=== PATIENT | female | born 1965 | race American Indian/Alaskan Native ===

== ENCOUNTER 2020-09-26 13:15 | Emergency (ER) | payer SELFPAY ==
--- NOTE | 2020-09-26 13:30 | Event Note ---
ED Screening Note ED Screening Note: feeling spasms in the center of her back states she is also having chest pain described as a pressure like someone is sitting on her chest states she history of [facility], states she has stents two years ago +nausea no v/d no fever no cough no SOB PMHx DM no allergies to meds took an aspirin today 81mg This initial assessment/diagnostic orders/clinical plan/treatment(s) is/are subject to change based on patients health status, clinical progression and re- assessment by fellow clinical providers in the ED. Further treatment and workup at subsequent clinical providers discretion. Patient/guardian urged not to elope from the ED as their condition may be serious if not clinically assessed and managed. Initial orders include: cp protocol
[2020-09-26] MEDS ORDERED: ASPIRIN 81 MG TAB CHEW PO ONE (13:50)
[2020-09-26] MEDS ORDERED: MORPHINE 4 MG/1 ML INJ IV ONE (13:50)
--- NOTE | 2020-09-26 13:50 | Emergency Department Report ---
ED General Adult HPI - General Chief complaint: Chest Pain Stated complaint: CHEST PAINS Time Seen by Provider: 09/26/20 13:28 Source: patient Mode of arrival: Ambulatory Limitations: No Limitations - History of Present Illness Initial comments: Patient is a 55-year-old female past medical history of diabetes who presents with chest pain that is been going on for last hour. Patient states chest pain is a 6 out of 10 located in the middle of her chest is a sharp type of pain nothing makes the pain better or worse patient denies having any shortness of breath any fevers or chills nausea or vomiting patient was just resting when this chest pain occurred. - Related Data Home Medications Medication Instructions Recorded Confirmed Last Taken Lisinopril [Zestril] 10 mg PO DAILY 09/26/20 09/26/20 1 Day Ago ~09/25/20 Metoprolol [Lopressor] 25 mg PO DAILY 09/26/20 09/26/20 1 Day Ago ~09/25/20 glipiZIDE [Glucotrol] 10 mg PO QDAY 09/26/20 09/26/20 1 Day Ago ~09/25/20 metFORMIN [Glucophage] 500 mg PO QDAY 09/26/20 09/26/20 1 Day Ago ~09/25/20 Allergies Allergy/AdvReac Type Severity Reaction Status Date / Time No Known Allergies Allergy Unverified 09/26/20 13:20 ED Review of Systems ROS: Stated complaint: CHEST PAINS Other details as noted in HPI Constitutional: denies: chills, fever Eyes: denies: eye pain, eye discharge, vision change ENT: denies: ear pain, throat pain Respiratory: denies: cough, shortness of breath, wheezing Cardiovascular: chest pain. denies: palpitations Endocrine: no symptoms reported Gastrointestinal: denies: abdominal pain, nausea, diarrhea Genitourinary: denies: urgency, dysuria, discharge Musculoskeletal: denies: back pain, joint swelling, arthralgia Skin: denies: rash, lesions Neurological: denies: headache, weakness, paresthesias Psychiatric: denies: anxiety, depression Hematological/Lymphatic: denies: easy bleeding, easy bruising ED Past Medical Hx - Past Medical History Previous Medical History?: Yes Hx Hypertension: Yes Additional medical history: stent, - Surgical History Additional Surgical History: stent - Social History Smoking Status: Never Smoker - Medications Home Medications: Home Medications Medication Instructions Recorded Confirmed Last Taken Type Lisinopril [Zestril] 10 mg PO DAILY 09/26/20 09/26/20 1 Day Ago History ~09/25/20 Metoprolol [Lopressor] 25 mg PO DAILY 09/26/20 09/26/20 1 Day Ago History ~09/25/20 glipiZIDE [Glucotrol] 10 mg PO QDAY 09/26/20 09/26/20 1 Day Ago History ~09/25/20 metFORMIN [Glucophage] 500 mg PO QDAY 09/26/20 09/26/20 1 Day Ago History ~09/25/20 ED Physical Exam - General Limitations: No Limitations General appearance: alert, in no apparent distress - Head Head exam: Present: atraumatic, normocephalic - Eye Eye exam: Present: normal appearance - ENT ENT exam: Present: mucous membranes moist - Neck Neck exam: Present: normal inspection - Respiratory Respiratory exam: Present: normal lung sounds bilaterally. Absent: respiratory distress - Cardiovascular Cardiovascular Exam: Present: regular rate, normal rhythm. Absent: systolic murmur, diastolic murmur, rubs, gallop - GI/Abdominal GI/Abdominal exam: Present: soft, normal bowel sounds - Extremities Exam Extremities exam: Present: normal inspection - Back Exam Back exam: Present: normal inspection - Neurological Exam Neurological exam: Present: alert, oriented X3 - Psychiatric Psychiatric exam: Present: normal affect, normal mood - Skin Skin exam: Present: warm, dry, intact, normal color. Absent: rash ED Course Vital Signs 09/26/20 09/26/20 13:19 14:18 Temperature 97.8 F Pulse Rate 83 Respiratory 18 17 Rate Blood Pressure 160/101 O2 Sat by Pulse 97 Oximetry ED Medical Decision Making - Lab Data Result diagrams: 09/26/20 13:30 09/26/20 13:30 Lab Results 09/26/20 09/26/20 09/26/20 Range/Units 13:30 13:30 13:30 WBC 5.4 (4.5-11.0) K/mm3 RBC 4.95 (3.65-5.03) M/mm3 Hgb 11.8 (10.1-14.3) gm/dl Hct 37.6 (30.3-42.9) % MCV 76 L (79-97) fl MCH 24 L (28-32) pg MCHC 32 (30-34) % RDW 21.5 H (13.2-15.2) % Plt Count 273 (140-440) K/mm3 Lymph % (Auto) 42.4 H (13.4-35.0) % [place] % (Auto) 9.1 H (0.0-7.3) % Eos % (Auto) 2.6 (0.0-4.3) % Baso % (Auto) 1.8 (0.0-1.8) % Lymph # (Auto) 2.3 (1.2-5.4) K/mm3 [place] # (Auto) 0.5 (0.0-0.8) K/mm3 Eos # (Auto) 0.1 (0.0-0.4) K/mm3 Baso # (Auto) 0.1 (0.0-0.1) K/mm3 Seg Neutrophils % 44.1 (40.0-70.0) % Seg Neutrophils # 2.4 (1.8-7.7) K/mm3 PT 13.1 (12.2-14.9) Sec. INR 0.97 (0.87-1.13) APTT 26.0 (24.2-36.6) Sec. Sodium 132 L (137-145) mmol/L Potassium 4.8 (3.6-5.0) mmol/L Chloride 96.3 L (98-107) mmol/L Carbon Dioxide 25 (22-30) mmol/L Anion Gap 16 mmol/L BUN 12 (7-17) mg/dL Creatinine 0.9 (0.6-1.2) mg/dL Estimated GFR > 60 ml/min BUN/Creatinine Ratio 13 % Glucose 347 H (65-100) mg/dL Calcium 10.7 H (8.4-10.2) mg/dL Total Bilirubin 0.30 (0.1-1.2) mg/dL AST 77 H (5-40) units/L ALT 92 H (7-56) units/L Alkaline Phosphatase 105 (35-129) units/L Troponin T < 0.010 (0.00-0.029) ng/mL Total Protein 7.5 (6.3-8.2) g/dL Albumin 4.1 (3.9-5) g/dL Albumin/Globulin Ratio 1.2 % 09/26/20 Range/Units 16:13 WBC (4.5-11.0) K/mm3 RBC (3.65-5.03) M/mm3 Hgb (10.1-14.3) gm/dl Hct (30.3-42.9) % MCV (79-97) fl MCH (28-32) pg MCHC (30-34) % RDW (13.2-15.2) % Plt Count (140-440) K/mm3 Lymph % (Auto) (13.4-35.0) % [place] % (Auto) (0.0-7.3) % Eos % (Auto) (0.0-4.3) % Baso % (Auto) (0.0-1.8) % Lymph # (Auto) (1.2-5.4) K/mm3 [place] # (Auto) (0.0-0.8) K/mm3 Eos # (Auto) (0.0-0.4) K/mm3 Baso # (Auto) (0.0-0.1) K/mm3 Seg Neutrophils % (40.0-70.0) % Seg Neutrophils # (1.8-7.7) K/mm3 PT (12.2-14.9) Sec. INR (0.87-1.13) APTT (24.2-36.6) Sec. Sodium (137-145) mmol/L Potassium (3.6-5.0) mmol/L Chloride (98-107) mmol/L Carbon Dioxide (22-30) mmol/L Anion Gap mmol/L BUN (7-17) mg/dL Creatinine (0.6-1.2) mg/dL Estimated GFR ml/min BUN/Creatinine Ratio % Glucose (65-100) mg/dL Calcium (8.4-10.2) mg/dL Total Bilirubin (0.1-1.2) mg/dL AST (5-40) units/L ALT (7-56) units/L Alkaline Phosphatase (35-129) units/L Troponin T < 0.010 (0.00-0.029) ng/mL Total Protein (6.3-8.2) g/dL Albumin (3.9-5) g/dL Albumin/Globulin Ratio % - EKG Data -: EKG Interpreted by Me - EKG Data 09/26/20 17:10 EKG time 13: 24 rate 75 normal sinus rhythm no ST segment elevation no T wave inversion impression normal EKG - Radiology Data Radiology results: report reviewed, image reviewed Chest x-ray: Shows no acute cardiopulmonary disease - Medical Decision Making Chief medical diagnosis: Non-STEMI Differential medical diagnosis, stable angina, costochondritis I will get chest x-ray to assess her troponin blood work IV pain medicine EKG and I will reevaluate the patient 17: 11 ED work-up is unremarkable I will discharge patient with follow-up with stable attendant and primary care doctor. Discussed additional verbal discharge instructions with the patient Critical care attestation.: If time is entered above; I have spent that time in minutes in the direct care of this critically ill patient, excluding procedure time. ED Disposition Clinical Impression: Chest pain Qualifiers: Chest pain type: unspecified Qualified Code(s): R07.9 - Chest pain, unspecified Disposition: DC- TO HOME OR SELFCARE Is pt being admited?: No Does the pt Need Aspirin: No Condition: Stable Instructions: Chest Pain (ED) Referrals: PRIMARY MD FAUSTO [Primary Care Provider] - 3-5 Days JC DALLAS MD [Staff Physician] - 3-5 Days
--- NOTE | 2020-09-26 13:55 | XRay Report ---
CHEST 1 VIEW INDICATION: Chest Pain. COMPARISON: None FINDINGS: Support devices: None. Heart: Within normal limits. Lungs/Pleura: No acute air space or interstitial disease. Additional findings: None. IMPRESSION: No acute findings. Signer Name: Harman Mandujano Jr, MD Signed: 09/26/2020 1:51 PM Workstation Name: [id number]
[2020-09-26 14:45] LABS: Basophils # (Auto) 0.1 K/mm3 (0.0-0.1); Basophils % (Auto) 1.8 % (0.0-1.8); Eosinophils # (Auto) 0.1 K/mm3 (0.0-0.4); Eosinophils % (Auto) 2.6 % (0.0-4.3); Hematocrit 37.6 % (30.3-42.9); Hemoglobin 11.8 gm/dl (10.1-14.3); Lymphocytes # (Auto) 2.3 K/mm3 (1.2-5.4); Lymphocytes % (Auto) 42.4 % (13.4-35.0); Mean Corpuscular HGB Conc 32 % (30-34); Mean Corpuscular Volume 76 fl (79-97); Monocytes # (Auto) 0.5 K/mm3 (0.0-0.8); Monocytes % (Auto) 9.1 % (0.0-7.3); Platelet Count 273 K/mm3 (140-440); Red Blood Count 4.95 M/mm3 (3.65-5.03)
[2020-09-26 14:50] LABS: Red Cell Distribution Width 21.5 % (13.2-15.2)
[2020-09-26] MEDS ORDERED: SODIUM CHLORIDE 0.9% 1000 ML 1,000 ML IV ONE (14:50)
[2020-09-26 14:51] LABS: Alanine Aminotransferase 92 units/L (7-56); Albumin 4.1 g/dL (3.9-5); BUN/Creatinine Ratio 13; Blood Urea Nitrogen 12 mg/dL (7-17); Calcium 10.7 mg/dL (8.4-10.2); Hemolysis Index 2
[2020-09-26 14:54] LABS: INR 0.97 (0.87-1.13)
[2020-09-26 17:33] VITALS: BP 150/84
== END 2020-09-26 17:35 | disposition home or self-care (01) ==
LOC: ED 13:15
DX: R07.89 Other chest pain (principal); I10 Essential (primary) hypertension
CPT/HCPCS: 36415; 71045; 80053; 84484; 85025; 85610; 85730; 93005; 96361; 96374; 99284; J2270; J7030

== ENCOUNTER 2021-08-29 08:35 | Inpatient (IN) | payer SELFPAY ==
[2021-08-29 09:57] LABS: Basophils % (Auto) 0.6 % (0.0-1.8); Eosinophils # (Auto) 0.3 K/mm3 (0.0-0.4); Eosinophils % (Auto) 4.1 % (0.0-4.3); Hematocrit 35.7 % (30.3-42.9); Hemoglobin 11.5 gm/dl (10.1-14.3); Lymphocytes # (Auto) 2.7 K/mm3 (1.2-5.4); Mean Corpuscular HGB Conc 32 % (30-34); Mean Corpuscular Volume 83 fl (79-97); Monocytes # (Auto) 0.6 K/mm3 (0.0-0.8); Monocytes % (Auto) 8.3 % (0.0-7.3); Platelet Count 254 K/mm3 (140-440); Red Blood Count 4.33 M/mm3 (3.65-5.03); Red Cell Distribution Width 17.1 % (13.2-15.2)
--- NOTE | 2021-08-29 09:57 | Emergency Department Report ---
ED Abdominal Pain HPI - General Chief Complaint: Abdominal Pain Stated Complaint: ABDOMINAL/HEADACHE PUI?: No Time Seen by Provider: 08/29/21 09:40 Source: patient Mode of arrival: Ambulatory Limitations: No Limitations - History of Present Illness Initial Comments: 56 yo AA comes to ER co abd pain; periumbilical in nature. Denies diarrhea, constipation; pos nausea; no vomiting; no fever or chills; no weight loss Pt crying on admit to triage with the pain States its been off and on for weeks but increased over the last the few days that she can not stand the pain . MD Complaint: abdominal pain -: Gradual, days(s) Location: periumbilical Radiation: none Migration to: no migration Severity: severe Quality: cramping, fullness Consistency: constant Improves With: nothing Worsens With: nothing Associated Symptoms: denies other symptoms. denies: nausea, vomiting, diarrhea, fever, chills, constipation, dysuria, hematemesis, hematochezia, melena, hematuria, anorexia, syncope - Related Data Home Medications Medication Instructions Recorded Confirmed Last Taken Lisinopril [Zestril] 10 mg PO DAILY 09/26/20 09/26/20 1 Day Ago ~09/25/20 Metoprolol [Lopressor] 25 mg PO DAILY 09/26/20 09/26/20 1 Day Ago ~09/25/20 glipiZIDE [Glucotrol] 10 mg PO QDAY 09/26/20 09/26/20 1 Day Ago ~09/25/20 metFORMIN [Glucophage] 500 mg PO QDAY 09/26/20 09/26/20 1 Day Ago ~09/25/20 Allergies Allergy/AdvReac Type Severity Reaction Status Date / Time No Known Allergies Allergy Unverified 09/26/20 13:20 ED Review of Systems ROS: Stated complaint: ABDOMINAL/HEADACHE Other details as noted in HPI Comment: All other systems reviewed and negative ED Past Medical Hx - Past Medical History Previous Medical History?: Yes Hx Hypertension: Yes Hx CVA: No Hx Heart Attack/AMI: No Hx Congestive Heart Failure: No Hx Diabetes: Yes Hx Deep Vein Thrombosis: No Hx Pulmonary Embolism: No Hx GERD: No Hx Liver Disease: No Hx Renal Disease: No Hx of Cancer: No Hx Sickle Cell Disease: No Hx Arthritis: No Hx Headaches / Migraines: No Hx Seizures: No Hx Kidney Stones: No Hx Psychiatric Treatment: No Hx Asthma: No Hx COPD: No Hx Tuberculosis: No Hx Dementia: No Hx HIV: No Additional medical history: stent, hld - Surgical History Past Surgical History?: Yes Additional Surgical History: stent. Family hx ovarian cancer - Family History Family history: no significant - Social History Smoking Status: Never Smoker Substance Use Type: None - Medications Home Medications: Home Medications Medication Instructions Recorded Confirmed Last Taken Type Lisinopril [Zestril] 10 mg PO DAILY 09/26/20 09/26/20 1 Day Ago History ~09/25/20 Metoprolol [Lopressor] 25 mg PO DAILY 09/26/20 09/26/20 1 Day Ago History ~09/25/20 glipiZIDE [Glucotrol] 10 mg PO QDAY 09/26/20 09/26/20 1 Day Ago History ~09/25/20 metFORMIN [Glucophage] 500 mg PO QDAY 09/26/20 09/26/20 1 Day Ago History ~09/25/20 ED Physical Exam - General Limitations: No Limitations General appearance: alert, in no apparent distress - Head Head exam: Present: atraumatic, normocephalic - Eye Eye exam: Present: normal appearance - ENT ENT exam: Present: mucous membranes moist - Neck Neck exam: Present: normal inspection - Respiratory Respiratory exam: Present: normal lung sounds bilaterally. Absent: respiratory distress - Cardiovascular Cardiovascular Exam: Present: regular rate, normal rhythm. Absent: systolic murmur, diastolic murmur, rubs, gallop - GI/Abdominal GI/Abdominal exam: Present: soft, distended, tenderness, normal bowel sounds. Absent: guarding, rebound, rigid, diminished bowel sounds, hyperactive bowel sounds, hypoactive bowel sounds, organomegaly, mass, bruit, pulsatile mass, hernia - Extremities Exam Extremities exam: Present: normal inspection - Back Exam Back exam: Present: normal inspection - Neurological Exam Neurological exam: Present: alert, oriented X3 - Psychiatric Psychiatric exam: Present: normal affect, normal mood - Skin Skin exam: Present: warm, dry, intact, normal color. Absent: rash ED Course Vital Signs 08/29/21 08:45 Temperature 98.2 F Pulse Rate 88 Respiratory 18 Rate Blood Pressure 172/83 O2 Sat by Pulse 99 Oximetry - Reevaluation(s) Reevaluation #1: 08/29/21 15:04 pt informed of test findings guiac of stool pos for occult blood ED Medical Decision Making - Lab Data Result diagrams: 08/29/21 09:28 08/29/21 09:28 - Radiology Data Radiology results: report reviewed, image reviewed see report - Medical Decision Making Lab Results 08/29/21 08/29/21 08/29/21 Range/Units 09:28 09:28 09:49 WBC 7.2 (4.5-11.0) K/mm3 RBC 4.33 (3.65-5.03) M/mm3 Hgb 11.5 (10.1-14.3) gm/dl Hct 35.7 (30.3-42.9) % MCV 83 (79-97) fl MCH 27 L (28-32) pg MCHC 32 (30-34) % RDW 17.1 H (13.2-15.2) % Plt Count 254 (140-440) K/mm3 Lymph % (Auto) 37.0 H (13.4-35.0) % [place] % (Auto) 8.3 H (0.0-7.3) % Eos % (Auto) 4.1 (0.0-4.3) % Baso % (Auto) 0.6 (0.0-1.8) % Lymph # (Auto) 2.7 (1.2-5.4) K/mm3 [place] # (Auto) 0.6 (0.0-0.8) K/mm3 Eos # (Auto) 0.3 (0.0-0.4) K/mm3 Baso # (Auto) 0.0 (0.0-0.1) K/mm3 Seg Neutrophils % 50.0 (40.0-70.0) % Seg Neutrophils # 3.6 (1.8-7.7) K/mm3 VBG pH (7.320-7.420) Sodium 139 (137-145) mmol/L Potassium 4.1 (3.6-5.0) mmol/L Chloride 102.7 (98-107) mmol/L Carbon Dioxide 23 (22-30) mmol/L Anion Gap 17 mmol/L BUN 11 (7-17) mg/dL Creatinine 0.8 (0.6-1.2) mg/dL Estimated GFR > 60 ml/min BUN/Creatinine Ratio 14 % Glucose 329 H (65-100) mg/dL POC Glucose (70-105) mg/dL Ketones Quantitative (Negative) Calcium 10.4 H (8.4-10.2) mg/dL Total Bilirubin 0.20 (0.1-1.2) mg/dL Direct Bilirubin < 0.2 (0-0.2) mg/dL Indirect Bilirubin 0.0 mg/dL AST 33 (5-40) units/L ALT 26 (7-56) units/L Alkaline Phosphatase 105 (35-129) units/L Troponin T (0.00-0.029) ng/mL Total Protein 7.4 (6.3-8.2) g/dL Albumin 4.1 (3.9-5) g/dL Albumin/Globulin Ratio 1.2 % Lipase 50 (13-60) units/L Urine Color Yellow (Yellow) Urine Turbidity Clear (Clear) Urine pH 5.0 (5.0-7.0) Ur Specific [place] Range 1.017 (1.003-1.030) Urine Protein <15 mg/dl (Negative) mg/dL Urine Glucose (UA) >=500 (Negative) mg/dL Urine Ketones Neg (Negative) mg/dL Urine Blood Neg (Negative) Urine Nitrite Neg (Negative) Urine Bilirubin Neg (Negative) Urine Urobilinogen < 2.0 (<2.0) mg/dL Ur Leukocyte Esterase Neg (Negative) Urine WBC (Auto) 3.0 (0.0-6.0) /HPF Urine RBC (Auto) 1.0 (0.0-6.0) /HPF U Epithel Cells (Auto) 2.0 (0-13.0) /HPF Urine Bacteria (Auto) 1+ (Negative) /HPF Urine Mucus Few /HPF 08/29/21 08/29/21 08/29/21 Range/Units 10:59 11:10 11:10 WBC (4.5-11.0) K/mm3 RBC (3.65-5.03) M/mm3 Hgb (10.1-14.3) gm/dl Hct (30.3-42.9) % MCV (79-97) fl MCH (28-32) pg MCHC (30-34) % RDW (13.2-15.2) % Plt Count (140-440) K/mm3 Lymph % (Auto) (13.4-35.0) % [place] % (Auto) (0.0-7.3) % Eos % (Auto) (0.0-4.3) % Baso % (Auto) (0.0-1.8) % Lymph # (Auto) (1.2-5.4) K/mm3 [place] # (Auto) (0.0-0.8) K/mm3 Eos # (Auto) (0.0-0.4) K/mm3 Baso # (Auto) (0.0-0.1) K/mm3 Seg Neutrophils % (40.0-70.0) % Seg Neutrophils # (1.8-7.7) K/mm3 VBG pH 7.344 (7.320-7.420) Sodium (137-145) mmol/L Potassium (3.6-5.0) mmol/L Chloride (98-107) mmol/L Carbon Dioxide (22-30) mmol/L Anion Gap mmol/L BUN (7-17) mg/dL Creatinine (0.6-1.2) mg/dL Estimated GFR ml/min BUN/Creatinine Ratio % Glucose (65-100) mg/dL POC Glucose 319 H (70-105) mg/dL Ketones Quantitative Negative (Negative) Calcium (8.4-10.2) mg/dL Total Bilirubin (0.1-1.2) mg/dL Direct Bilirubin (0-0.2) mg/dL Indirect Bilirubin mg/dL AST (5-40) units/L ALT (7-56) units/L Alkaline Phosphatase (35-129) units/L Troponin T (0.00-0.029) ng/mL Total Protein (6.3-8.2) g/dL Albumin (3.9-5) g/dL Albumin/Globulin Ratio % Lipase (13-60) units/L Urine Color (Yellow) Urine Turbidity (Clear) Urine pH (5.0-7.0) Ur Specific [place] Range (1.003-1.030) Urine Protein (Negative) mg/dL Urine Glucose (UA) (Negative) mg/dL Urine Ketones (Negative) mg/dL Urine Blood (Negative) Urine Nitrite (Negative) Urine Bilirubin (Negative) Urine Urobilinogen (<2.0) mg/dL Ur Leukocyte Esterase (Negative) Urine WBC (Auto) (0.0-6.0) /HPF Urine RBC (Auto) (0.0-6.0) /HPF U Epithel Cells (Auto) (0-13.0) /HPF Urine Bacteria (Auto) (Negative) /HPF Urine Mucus /HPF 08/29/21 Range/Units 11:10 WBC (4.5-11.0) K/mm3 RBC (3.65-5.03) M/mm3 Hgb (10.1-14.3) gm/dl Hct (30.3-42.9) % MCV (79-97) fl MCH (28-32) pg MCHC (30-34) % RDW (13.2-15.2) % Plt Count (140-440) K/mm3 Lymph % (Auto) (13.4-35.0) % [place] % (Auto) (0.0-7.3) % Eos % (Auto) (0.0-4.3) % Baso % (Auto) (0.0-1.8) % Lymph # (Auto) (1.2-5.4) K/mm3 [place] # (Auto) (0.0-0.8) K/mm3 Eos # (Auto) (0.0-0.4) K/mm3 Baso # (Auto) (0.0-0.1) K/mm3 Seg Neutrophils % (40.0-70.0) % Seg Neutrophils # (1.8-7.7) K/mm3 VBG pH (7.320-7.420) Sodium (137-145) mmol/L Potassium (3.6-5.0) mmol/L Chloride (98-107) mmol/L Carbon Dioxide (22-30) mmol/L Anion Gap mmol/L BUN (7-17) mg/dL Creatinine (0.6-1.2) mg/dL Estimated GFR ml/min BUN/Creatinine Ratio % Glucose (65-100) mg/dL POC Glucose (70-105) mg/dL Ketones Quantitative (Negative) Calcium (8.4-10.2) mg/dL Total Bilirubin (0.1-1.2) mg/dL Direct Bilirubin (0-0.2) mg/dL Indirect Bilirubin mg/dL AST (5-40) units/L ALT (7-56) units/L Alkaline Phosphatase (35-129) units/L Troponin T < 0.010 (0.00-0.029) ng/mL Total Protein (6.3-8.2) g/dL Albumin (3.9-5) g/dL Albumin/Globulin Ratio % Lipase (13-60) units/L Urine Color (Yellow) Urine Turbidity (Clear) Urine pH (5.0-7.0) Ur Specific [place] Range (1.003-1.030) Urine Protein (Negative) mg/dL Urine Glucose (UA) (Negative) mg/dL Urine Ketones (Negative) mg/dL Urine Blood (Negative) Urine Nitrite (Negative) Urine Bilirubin (Negative) Urine Urobilinogen (<2.0) mg/dL Ur Leukocyte Esterase (Negative) Urine WBC (Auto) (0.0-6.0) /HPF Urine RBC (Auto) (0.0-6.0) /HPF U Epithel Cells (Auto) (0-13.0) /HPF Urine Bacteria (Auto) (Negative) /HPF Urine Mucus /HPF Vital Signs 08/29/21 08:45 Temperature 98.2 F Pulse Rate 88 Respiratory 18 Rate Blood Pressure 172/83 O2 Sat by Pulse 99 Oximetry labs noted ua noted CT noted Staffed with Dr Lopes continues to have abd pain despite dilaudid NS/insulin IV- BG Q1h ordered guaic pos for blood [address] MATOS; PT TO BE ADMITTED TO [facility] - Differential Diagnosis ro dka/uti/k stone/choleysyst./obstruction Critical care attestation.: If time is entered above; I have spent that time in minutes in the direct care of this critically ill patient, excluding procedure time. ED Disposition Clinical Impression: Abdominal pain Disposition: ADMITTED INPATIENT Is pt being admited?: Yes Does the pt Need Aspirin: No Condition: Stable Instructions: Abdominal Pain, Adult, [id number], Abdominal Pain (ED) Referrals: PRIMARY CARE, [Primary Care Provider] - 3-5 Days AVIVA SHAH MD [Staff Physician] - 3-5 Days DIOMEDES DUMONT MD [Staff Physician] - 3-5 Days Time of Disposition: 14:39
[2021-08-29 10:19] LABS: Alanine Aminotransferase 26 units/L (7-56); Albumin 4.1 g/dL (3.9-5); BUN/Creatinine Ratio 14; Blood Urea Nitrogen 11 mg/dL (7-17); Calcium 10.4 mg/dL (8.4-10.2); Hemolysis Index 4
[2021-08-29 10:20] LABS: Bilirubin,Direct < 0.2 mg/dL (0-0.2)
[2021-08-29 10:24] LABS: Bacteria,Urine 1+ /HPF (Negative); Bilirubin,Urine NEG (Negative); Blood,Urine NEG (Negative); Color,Urine Yellow (Yellow); Mucus,Urine FEW /HPF; Protein,Urine <15 mg/dL mg/dL (Negative); Urobilinogen,Urine < 2.0 mg/dL (<2.0)
[2021-08-29] MEDS ORDERED: INSULIN REGULAR, HUMAN 100 UNITS/1 ML IV ONE (10:38)
[2021-08-29] MEDS: SODIUM CHLORIDE 0.9% 1000 ML 1,000 ML IV ONE ×2 (10:57→11:10)
--- NOTE | 2021-08-29 11:05 | XRay Report ---
XR chest routine 2V INDICATION / CLINICAL INFORMATION: pain. COMPARISON: 09/26/2020 FINDINGS: SUPPORT DEVICES: None. HEART /PULMONARY VASCULATURE: No significant abnormality. LUNGS / PLEURA: No significant pulmonary or pleural abnormality. No pneumothorax. ADDITIONAL FINDINGS: No significant additional findings. IMPRESSION: 1. No acute findings. Signer Name: José Miguel Matos MD Signed: 08/29/2021 11:01 AM Workstation Name: [id number]
--- NOTE | 2021-08-29 11:49 | Electrocardiograph Report ---
[facility] Test Date: 2021-08-29 Test Time: 08:57:15 Pat Name: MARIA EUGENIA KING Department: Room: Gender: F [employer]: LANA : 1965 Requested By: RAHEEM FRANCIS Order Number: [id number] Reading MD: Nicola Moody Measurements Intervals [place] Rate: 87 P: 26 [place]: 163 QRS: 12 QRSD: 88 T: 37 QT: 356 QTc: 429 Interpretive Statements Sinus rhythm No previous ECG available for comparison Electronically Signed On 08-29-2021 11:49:21 EDT by Nicola Moody
[2021-08-29] MEDS ORDERED: SODIUM CHLORIDE 0.9% 1000 ML 1,000 ML IV ONE (12:07)
[2021-08-29] MEDS ORDERED: KETOROLAC 30 MG/1 ML INJ IV ONE (12:09)
--- NOTE | 2021-08-29 13:47 | Cat Scan Report ---
CT ABDOMEN AND PELVIS WITH CONTRAST INDICATION / CLINICAL INFORMATION: abd pain OMNI 300 100 ML. TECHNIQUE: Axial CT images were obtained through the abdomen and pelvis after IV contrast. All CT sc ans at this location are performed using CT dose reduction for ALARA by means of automated exposure c ontrol. COMPARISON: None available. FINDINGS: LOWER CHEST: No significant abnormality. AORTA / ARTERIES: Mild atherosclerotic calcification without acute abnormality. IVC / VEINS: No significant abnormality. LYMPH NODES: Several prominent right lower quadrant lymph nodes. COLON: There is pericolonic fat stranding along the ascending colon at the hepatic flexure. There is a short segment of colon which appears to have irregularly thickened bowel wall (series 2 images 92 t hrough 105, series 601 images 53 through 67 and series 602 images 40 through 54). Adjacent to this th ere are also several prominent lymph nodes. APPENDIX: Not visualized. STOMACH / SMALL BOWEL: No significant abnormality. PERITONEUM: No free fluid. No free air. No fluid collection. LIVER: No significant abnormality. GALLBLADDER: No significant abnormality. BILE DUCTS: No significant abnormality. PANCREAS: No significant abnormality. SPLEEN: No significant abnormality. ADRENALS: No significant abnormality. RIGHT KIDNEY / URETER: Multiple foci of cortical thinning suggesting chronic scarring. No hydronephro sis. LEFT KIDNEY / URETER: No significant abnormality. URINARY BLADDER: No significant abnormality. REPRODUCTIVE ORGANS: No significant abnormality. SKELETAL SYSTEM: No significant abnormality. ADDITIONAL FINDINGS: None. IMPRESSION: 1. Findings concerning for adenocarcinoma of the ascending colon. Colonoscopy should be considered wi thin clinically feasible. 2. Multiple foci of cortical thinning of the right kidney suggesting chronic scarring. Signer Name: Taran Solano DO Signed: 08/29/2021 1:43 PM Workstation Name: [id number]
[2021-08-29] MEDS ORDERED: HYDROmorphone 1 MG/1 ML INJ IV ONE ×2 (14:54→16:59)
--- NOTE | 2021-08-29 20:00 | History and Physical Report ---
History of Present Illness Date of examination: 08/29/21 Date of admission: 08/29/21 16:02 Chief complaint: Abdominal pain for 2 to 3 weeks History of present illness: 52-year-old male history of hypertension type 2 diabetes 2 to 3 weeks but more so today. Since a.m. Nausea present. But no vomiting or diarrhea. Abdominal pain is crampy in nature and pain is about 8 on a scale of 1-10. Food is an exacerbating factor. Pain is crampy and sharp in nature. Localized to periumbilical area. No constipation. No fever or chills. Vaccinated--Covid vaccine - Past Medical History Previous Medical History?: Yes Hypertension: Yes Additional medical history: stent, hld - Surgical History Past Surgical History?: Yes Additional Surgical History: stent. Family hx ovarian cancer - Family History Family history: no significant - Social History Smoking Status: Never Smoker Substance Use Type: None - Medications Home Medications: Home Medications Medication Instructions Recorded Confirmed Last Taken Type Lisinopril [Zestril] 10 mg PO DAILY 09/26/20 09/26/20 1 Day Ago History ~09/25/20 Metoprolol [Lopressor] 25 mg PO DAILY 09/26/20 09/26/20 1 Day Ago History ~09/25/20 glipiZIDE [Glucotrol] 10 mg PO QDAY 09/26/20 09/26/20 1 Day Ago History ~09/25/20 metFORMIN [Glucophage] 500 mg PO QDAY 09/26/20 09/26/20 1 Day Ago History ~09/25/20 Review of Systems ROS: Constitutional no weight loss or weight gain no fever or chills HEENT no sore throat no post nasal drip no diplopia Neck no neck stiffness no lymph gland enlargement Chest and lungs no shortness of breath cough or wheezing CVS no chest pain no diaphoresis no palpitations GI abdominal pain 2 to 3 weeks intermittent in nature. Genitourinary system no dysuria no flank pain Musculoskeletal system no muscle pains no joint pains [employer] no syncope no seizures Skin no rash no itching Psychiatric no depression no homicidal or suicidal tendencies Hematologic no lymphedema or bruising Endocrine no polydipsia no polyuria no cold intolerance no heat intolerance Medications and Allergies Allergies Allergy/AdvReac Type Severity Reaction Status Date / Time No Known Allergies Allergy Unverified 09/26/20 13:20 Home Medications Medication Instructions Recorded Confirmed Last Taken Type Lisinopril [Zestril] 10 mg PO DAILY 09/26/20 09/26/20 1 Day Ago History ~09/25/20 Metoprolol [Lopressor] 25 mg PO DAILY 09/26/20 09/26/20 1 Day Ago History ~09/25/20 glipiZIDE [Glucotrol] 10 mg PO QDAY 09/26/20 09/26/20 1 Day Ago History ~09/25/20 metFORMIN [Glucophage] 500 mg PO QDAY 09/26/20 09/26/20 1 Day Ago History ~09/25/20 Exam - Constitutional Vitals: Temp Pulse Resp BP Pulse Ox 98.2 F 88 18 172/83 99 08/29/21 08:45 08/29/21 08:45 08/29/21 08:45 08/29/21 08:45 08/29/21 08:45 General appearance: Present: no acute distress, mild distress, well-nourished - EENT Eyes: Present: PERRL ENT: hearing intact, clear oral mucosa - Neck Neck: Present: supple, normal ROM - Respiratory Respiratory effort: normal Respiratory: bilateral: CTA - Cardiovascular Heart rate: 78 Rhythm: regular Heart Sounds: Present: S1 & S2. Absent: rub, click - Extremities Extremities: no ischemia, pulses intact, pulses symmetrical, No edema Peripheral Pulses: within normal limits - Abdominal General gastrointestinal: Present: soft, tender, non-distended, normal bowel sounds Female genitourinary: Present: normal - Integumentary Integumentary: Present: clear, warm, dry - Musculoskeletal Musculoskeletal: gait normal, strength equal bilaterally - Psychiatric Psychiatric: appropriate mood/affect, intact judgment & insight - Neurologic Neurologic: CNII-XII intact, moves all extremities - Allied Health Allied health notes reviewed: nursing, case management HEART Score - HEART Score Troponin: Troponin T < 0.010 ng/mL (0.00-0.029) 08/29/21 11:10 Results - Labs CBC & Chem 7: 08/30/21 04:46 08/30/21 04:46 Labs: Laboratory Last Values WBC 7.2 K/mm3 (4.5-11.0) 08/29/21 09:28 RBC 4.33 M/mm3 (3.65-5.03) 08/29/21 09: Hgb 11.5 gm/dl (10.1-14.3) 08/29/21: Hct 35.7 % (30.3-42.9) 08/29/21: MCV 83 fl (79-97) 08/29/21: MCH 27 pg (28-32) L 08/29/21: MCHC 32 % (30-34) 08/29/21: RDW 17.1 % (13.2-15.2) H 08/29/21: Plt Count 254 K/mm3 (140-440) 08/29/21: Lymph % (Auto) 37.0 % (13.4-35.0) H 08/29/21: [place] % (Auto) 8.3 % (0.0-7.3) H 08/29/21: Eos % (Auto) 4.1 % (0.0-4.3) 08/29/21: Baso % (Auto) 0.6 % (0.0-1.8) 08/29/21: Lymph # (Auto) 2.7 K/mm3 (1.2-5.4) 08/29/21: [place] # (Auto) 0.6 K/mm3 (0.0-0.8) 08/29/21: Eos # (Auto) 0.3 K/mm3 (0.0-0.4) 08/29/21: Baso # (Auto) 0.0 K/mm3 (0.0-0.1) 08/29/21: Seg Neutrophils % 50.0 % (40.0-70.0) 08/29/21 09: Seg Neutrophils # 3.6 K/mm3 (1.8-7.7) 08/29/21 09: VBG pH 7.344 (7.320-7.420) 08/29/21 11:10 Sodium 139 mmol/L (137-145) 08/29/21 09: Potassium 4.1 mmol/L (3.6-5.0) 08/29/21 09: Chloride 102.7 mmol/L (98-107) 08/29/21 09:28 Carbon Dioxide 23 mmol/L (22-30) 08/29/21 09:28 Anion Gap 17 mmol/L 08/29/21 09:28 BUN 11 mg/dL (7-17) 08/29/21 09:28 Creatinine 0.8 mg/dL (0.6-1.2) 08/29/21 09:28 Estimated GFR > 60 ml/min 08/29/21 09: BUN/Creatinine Ratio 14 % 08/29/21 09:28 Glucose 329 mg/dL (65-100) H 08/29/21 09:28 POC Glucose 177 mg/dL (70-105) H 08/29/21 15:04 Ketones Quantitative Negative (Negative) 08/29/21 11:10 Calcium 10.4 mg/dL (8.4-10.2) H 08/29/21 09:28 Total Bilirubin 0.20 mg/dL (0.1-1.2) 08/29/21 09:28 Direct Bilirubin < 0.2 mg/dL (0-0.2) 08/29/21 09:28 Indirect Bilirubin 0.0 mg/dL 08/29/21 09:28 AST 33 units/L (5-40) 08/29/21 09:28 ALT 26 units/L (7-56) 08/29/21 09:28 Alkaline Phosphatase 105 units/L (35-129) 08/29/21 09:28 Troponin T < 0.010 ng/mL (0.00-0.029) 08/29/21 11:10 Total Protein 7.4 g/dL (6.3-8.2) 08/29/21 09:28 Albumin 4.1 g/dL (3.9-5) 08/29/21 09:28 Albumin/Globulin Ratio 1.2 % 08/29/21 09:28 Lipase 50 units/L (13-60) 08/29/21 09:28 Urine Color Yellow (Yellow) 08/29/21 09:49 Urine Turbidity Clear (Clear) 08/29/21 09:49 Urine pH 5.0 (5.0-7.0) 08/29/21 09:49 Ur Specific [place] 1.017 (1.003-1.030) 08/29/21 09:49 Urine Protein <15 mg/dl mg/dL (Negative) 08/29/21 09:49 Urine Glucose (UA) >=500 mg/dL (Negative) 08/29/21 09:49 Urine Ketones Neg mg/dL (Negative) 08/29/21 09:49 Urine Blood Neg (Negative) 08/29/21 09:49 Urine Nitrite Neg (Negative) 08/29/21 09:49 Urine Bilirubin Neg (Negative) 08/29/21 09:49 Urine Urobilinogen < 2.0 mg/dL (<2.0) 08/29/21 09:49 Ur Leukocyte Esterase Neg (Negative) 08/29/21 09:49 Urine WBC (Auto) 3.0 /HPF (0.0-6.0) 08/29/21 09:49 Urine RBC (Auto) 1.0 /HPF (0.0-6.0) 08/29/21 09:49 U Epithel Cells (Auto) 2.0 /HPF (0-13.0) 08/29/21 09:49 Urine Bacteria (Auto) 1+ /HPF (Negative) 08/29/21 09:49 Urine Mucus Few /HPF 08/29/21 09:49 Short CBC 08/29/21 08/30/21 Range/Units 09:28 04:46 WBC 7.2 7.3 (4.5-11.0) K/mm3 Hgb 11.5 11.1 (10.1-14.3) gm/dl Hct 35.7 34.6 (30.3-42.9) % Plt Count 254 254 (140-440) K/mm3 BMP 08/29/21 08/30/21 09:28 04:46 Sodium 139 138 Potassium 4.1 4.1 Chloride 102.7 104.3 Carbon Dioxide 23 21 L BUN 11 9 Creatinine 0.8 0.8 Glucose 329 H 218 H Calcium 10.4 H 10.1 Cardiac Enzymes 08/29/21 Range/Units 11:10 Troponin T < 0.010 (0.00-0.029) ng/mL Liver Function 08/29/21 08/30/21 Range/Units 09:28 04:46 Total Bilirubin 0.20 0.20 (0.1-1.2) mg/dL Direct Bilirubin < 0.2 (0-0.2) mg/dL AST 33 34 (5-40) units/L ALT 26 26 (7-56) units/L Alkaline Phosphatase 105 91 (35-129) units/L Albumin 4.1 3.9 (3.9-5) g/dL Urine 08/29/21 Range/Units 09:49 Urine Color Yellow (Yellow) Urine pH 5.0 (5.0-7.0) Ur Specific [place] 1.017 (1.003-1.030) Urine Protein <15 mg/dl (Negative) mg/dL Urine Glucose (UA) >=500 (Negative) mg/dL - Imaging and Cardiology CT scan - abdomen: report reviewed Imaging and Cardiology: Abdomen/pelvis CT Findings concerning for adenocarcinoma of ascending colon. Colonoscopy should be considered. When clinically feasible. Multiple foci of cortical thinning of the right kidney suggesting chronic scarring Chest x-ray No acute findings Assessment and Plan Advance Directives: Yes (Full code) VTE prophylaxis?: Chemical Plan of care discussed with patient/family: Yes - Patient Problems (1) Acute abdominal pain Current Visit: Yes Status: Acute Plan to address problem: Symptomatic treatment Pain secondary to partial obstruction of the ascending colon GI and surgical consult (2) Primary adenocarcinoma of ascending colon Current Visit: Yes Status: Acute Plan to address problem: Patient has a mass in the ascending colon--probably adenocarcinoma No metastasis Patient may be amenable to surgery with partial colectomy Wiill defer to GI and surgery (3) Hypertension Current Visit: Yes Status: Chronic Qualifiers: Hypertension type: primary hypertension Qualified Code(s): I10 - Essential (primary) hypertension Plan to address problem: Continue antihypertensives and adjust medication (4) Type 2 diabetes mellitus Current Visit: Yes Status: Chronic Qualifiers: Diabetes mellitus residential insulin use: unspecified residential insulin use status Plan to address problem: Continue coverage Accu-Cheks every 6 and moderate dose sliding scale coverage (5) DVT prophylaxis Current Visit: Yes Status: Acute Plan to address problem: On heparin and GI prophylaxis
[2021-08-29] MEDS ORDERED: ONDANSETRON 4 MG/2 ML INJ IV PRN (20:01)
[2021-08-29] MEDS ORDERED: MORPHINE 2 MG/1 ML INJ IV PRN (20:01)
[2021-08-29] MEDS ORDERED: METOCLOPRAMIDE 10 MG/2 ML INJ IV PRN (20:01)
[2021-08-29] MEDS ORDERED: cloNIDine TTS 0.2 MG/24 HR PATCH TD SCH (21:00)
[2021-08-29] MEDS: FAMOTIDINE 20 MG/2 ML INJ IV SCH (22:51)
[2021-08-29] MEDS: INSULIN LISPRO 100 UNIT/ML SUB-Q SCH (22:52)
[2021-08-29] MEDS: HYDROmorphone 1 MG/1 ML INJ IV PRN (23:01)
[2021-08-29] MEDS: SODIUM CHLORIDE 0.45% 1000 ML 1,000 ML IV SCH (23:12)
[2021-08-30] MEDS: INSULIN LISPRO 100 UNIT/ML SUB-Q SCH ×4 (02:00→18:43)
[2021-08-30] MEDS: HYDROmorphone 1 MG/1 ML INJ IV PRN ×5 (03:14→23:59)
[2021-08-30 05:42] LABS: Alanine Aminotransferase 26 units/L (7-56); Albumin 3.9 g/dL (3.9-5); BUN/Creatinine Ratio 11; Basophils # (Auto) 0.1 K/mm3 (0.0-0.1); Basophils % (Auto) 0.8 % (0.0-1.8); Blood Urea Nitrogen 9 mg/dL (7-17); Calcium 10.1 mg/dL (8.4-10.2); Eosinophils # (Auto) 0.3 K/mm3 (0.0-0.4); Eosinophils % (Auto) 4.5 % (0.0-4.3); Hematocrit 34.6 % (30.3-42.9); Hemoglobin 11.1 gm/dl (10.1-14.3); Hemolysis Index 18; Lymphocytes # (Auto) 3.1 K/mm3 (1.2-5.4); Lymphocytes % (Auto) 42.6 % (13.4-35.0); Mean Corpuscular HGB Conc 32 % (30-34); Mean Corpuscular Volume 81 fl (79-97); Monocytes # (Auto) 0.4 K/mm3 (0.0-0.8); Monocytes % (Auto) 5.9 % (0.0-7.3); Platelet Count 254 K/mm3 (140-440); Red Blood Count 4.26 M/mm3 (3.65-5.03); Red Cell Distribution Width 17.2 % (13.2-15.2)
--- NOTE | 2021-08-30 07:56 | Gastroenterology Consultation ---
History of Present Illness - Reason for Consult Consult date: 08/30/21 colon mass Requesting physician: TREVOR MATOS - History of Present Illness This is a pleasance 52-year-old female history of hypertension type 2 diabetes presenting with abd pain. Duration2 to 3 weeks no change in bm, no vomiting no diarrhea, quality cramping, moderate to severe, mid abd, no blood in stool no change in bm CT scan concerning for proximal colon malignancy - Past Medical History Previous Medical History?: Yes Hypertension: Yes Additional medical history: stent, hld - Surgical History Past Surgical History?: Yes Additional Surgical History: stent. Family hx ovarian cancer no known FH colon CA - Family History Family history: no significant - Social History Smoking Status: Never Smoker Substance Use Type: None Obtained/updated/reviewed patient's current medications Medications and Allergies Allergies Allergy/AdvReac Type Severity Reaction Status Date / Time No Known Allergies Allergy Unverified 09/26/20 13:20 Home Medications Medication Instructions Recorded Confirmed Last Taken Type Lisinopril [Zestril] 10 mg PO DAILY 09/26/20 08/30/21 1 Day Ago History ~09/25/20 Metoprolol [Lopressor] 25 mg PO DAILY 09/26/20 08/30/21 1 Day Ago History ~09/25/20 glipiZIDE [Glucotrol] 10 mg PO QDAY 09/26/20 08/30/21 1 Day Ago History ~09/25/20 metFORMIN [Glucophage] 500 mg PO QDAY 09/26/20 08/30/21 1 Day Ago History ~09/25/20 Active Meds: Active Medications Acetaminophen (Acetaminophen 325 Mg Tab) 650 mg PO Q4H PRN PRN Reason: Pain MILD(1-3)/Fever >100.5/GRADY Clonidine HCl (Clonidine Tts 0.2 Mg/24 Hr Patch) 0.2 mg TD We ESTEBAN Famotidine (Famotidine 20 Mg/2 Ml Inj) 20 mg IV BID ESTEBAN Last Admin: 08/29/21 22:51 Dose: 20 mg Documented by: Hydromorphone HCl (Hydromorphone 1 Mg/1 Ml Inj) 0.5 mg IV Q3H PRN PRN Reason: Pain , Severe (7-10) Last Admin: 08/30/21 03:14 Dose: 0.5 mg Documented by: Sodium Chloride (Nacl 0.45% 1000 Ml) 1,000 mls @ 75 mls/hr IV DIRECT ESTEBAN Last Admin: 08/29/21 23:12 Dose: 75 mls/hr Documented by: Insulin Human Lispro (Insulin Lispro 100 Unit/Ml) 0 unit SUB-Q Q6HR [facility]; Protocol Last Admin: 08/30/21 02:00 Dose: Not Given Documented by: Metoclopramide HCl (Metoclopramide 10 Mg/2 Ml Inj) 10 mg IV Q6H PRN PRN Reason: Nausea And Vomiting Morphine Sulfate (Morphine 2 Mg/1 Ml Inj) 2 mg IV Q4H PRN PRN Reason: Pain, Moderate (4-6) Ondansetron HCl (Ondansetron 4 Mg/2 Ml Inj) 4 mg IV Q8H PRN PRN Reason: Nausea And Vomiting Sodium Chloride (Sodium Chloride 0.9% 10 Ml Flush Syringe) 10 ml IV BID [facility] Last Admin: 08/29/21 22:56 Dose: 10 ml Documented by: Sodium Chloride (Sodium Chloride 0.9% 10 Ml Flush Syringe) 10 ml IV PRN PRN PRN Reason: LINE FLUSH Review of Systems - Review of Systems All systems: negative Exam - Constitutional Vital Signs: Temp Pulse Resp BP Pulse Ox 97.8 F 68 18 188/89 99 08/30/21 07:35 08/30/21 07:35 08/30/21 07:35 08/30/21 07:35 08/30/21 07:35 General appearance: no acute distress - EENT Eyes: EOM intact ENT: hearing intact - Neck Neck: supple - Respiratory Respiratory effort: normal - Cardiovascular Rhythm: regular - Gastrointestinal General gastrointestinal: Present: soft, normal bowel sounds - Integumentary Integumentary: Present: dry - Musculoskeletal Musculoskeletal: normal - Neurologic Neurological: alert and oriented x3 - Psychiatric Psychiatric: appropriate mood/affect - Labs CBC & Chem 7: 08/30/21 04:46 08/30/21 04:46 Lab Results: Laboratory Results - last 24 hr 08/29/21 08/29/21 08/29/21 09:28 09:28 09:49 WBC 7.2 RBC 4.33 Hgb 11.5 Hct 35.7 MCV 83 MCH 27 L MCHC 32 RDW 17.1 H Plt Count 254 Lymph % (Auto) 37.0 H [place] % (Auto) 8.3 H Eos % (Auto) 4.1 Baso % (Auto) 0.6 Lymph # (Auto) 2.7 [place] # (Auto) 0.6 Eos # (Auto) 0.3 Baso # (Auto) 0.0 Seg Neutrophils % 50.0 Seg Neutrophils # 3.6 VBG pH Sodium 139 Potassium 4.1 Chloride 102.7 Carbon Dioxide 23 Anion Gap 17 BUN 11 Creatinine 0.8 Estimated GFR > 60 BUN/Creatinine Ratio 14 Glucose 329 H POC Glucose Hemoglobin A1c Ketones Quantitative Calcium 10.4 H Total Bilirubin 0.20 Direct Bilirubin < 0.2 Indirect Bilirubin 0.0 AST 33 ALT 26 Alkaline Phosphatase 105 Troponin T Total Protein 7.4 Albumin 4.1 Albumin/Globulin Ratio 1.2 Lipase 50 Urine Color Yellow Urine Turbidity Clear Urine pH 5.0 Ur Specific [place] 1.017 Urine Protein <15 mg/dl Urine Glucose (UA) >=500 Urine Ketones Neg Urine Blood Neg Urine Nitrite Neg Urine Bilirubin Neg Urine Urobilinogen < 2.0 Ur Leukocyte Esterase Neg Urine WBC (Auto) 3.0 Urine RBC (Auto) 1.0 U Epithel Cells (Auto) 2.0 Urine Bacteria (Auto) 1+ Urine Mucus Few 08/29/21 08/29/21 08/29/21 10:59 11:10 11:10 WBC RBC Hgb Hct MCV MCH MCHC RDW Plt Count Lymph % (Auto) [place] % (Auto) Eos % (Auto) Baso % (Auto) Lymph # (Auto) [place] # (Auto) Eos # (Auto) Baso # (Auto) Seg Neutrophils % Seg Neutrophils # VBG pH 7.344 Sodium Potassium Chloride Carbon Dioxide Anion Gap BUN Creatinine Estimated GFR BUN/Creatinine Ratio Glucose POC Glucose 319 H Hemoglobin A1c Ketones Quantitative Negative Calcium Total Bilirubin Direct Bilirubin Indirect Bilirubin AST ALT Alkaline Phosphatase Troponin T Total Protein Albumin Albumin/Globulin Ratio Lipase Urine Color Urine Turbidity Urine pH Ur Specific [place] Urine Protein Urine Glucose (UA) Urine Ketones Urine Blood Urine Nitrite Urine Bilirubin Urine Urobilinogen Ur Leukocyte Esterase Urine WBC (Auto) Urine RBC (Auto) U Epithel Cells (Auto) Urine Bacteria (Auto) Urine Mucus 08/29/21 08/29/21 08/29/21 11:10 15:04 22:44 WBC RBC Hgb Hct MCV MCH MCHC RDW Plt Count Lymph % (Auto) [place] % (Auto) Eos % (Auto) Baso % (Auto) Lymph # (Auto) [place] # (Auto) Eos # (Auto) Baso # (Auto) Seg Neutrophils % Seg Neutrophils # VBG pH Sodium Potassium Chloride Carbon Dioxide Anion Gap BUN Creatinine Estimated GFR BUN/Creatinine Ratio Glucose POC Glucose 177 H 161 H Hemoglobin A1c Ketones Quantitative Calcium Total Bilirubin Direct Bilirubin Indirect Bilirubin AST ALT Alkaline Phosphatase Troponin T < 0.010 Total Protein Albumin Albumin/Globulin Ratio Lipase Urine Color Urine Turbidity Urine pH Ur Specific [place] Urine Protein Urine Glucose (UA) Urine Ketones Urine Blood Urine Nitrite Urine Bilirubin Urine Urobilinogen Ur Leukocyte Esterase Urine WBC (Auto) Urine RBC (Auto) U Epithel Cells (Auto) Urine Bacteria (Auto) Urine Mucus 08/30/21 08/30/21 08/30/21 04:46 04:46 04:46 WBC 7.3 RBC 4.26 Hgb 11.1 Hct 34.6 MCV 81 MCH 26 L MCHC 32 RDW 17.2 H Plt Count 254 Lymph % (Auto) 42.6 H [place] % (Auto) 5.9 Eos % (Auto) 4.5 H Baso % (Auto) 0.8 Lymph # (Auto) 3.1 [place] # (Auto) 0.4 Eos # (Auto) 0.3 Baso # (Auto) 0.1 Seg Neutrophils % 46.2 Seg Neutrophils # 3.4 VBG pH Sodium 138 Potassium 4.1 Chloride 104.3 Carbon Dioxide 21 L Anion Gap 17 BUN 9 Creatinine 0.8 Estimated GFR > 60 BUN/Creatinine Ratio 11 Glucose 218 H POC Glucose Hemoglobin A1c 11.9 H Ketones Quantitative Calcium 10.1 Total Bilirubin 0.20 Direct Bilirubin Indirect Bilirubin AST 34 ALT 26 Alkaline Phosphatase 91 Troponin T Total Protein 6.5 Albumin 3.9 Albumin/Globulin Ratio 1.5 Lipase Urine Color Urine Turbidity Urine pH Ur Specific [place] Urine Protein Urine Glucose (UA) Urine Ketones Urine Blood Urine Nitrite Urine Bilirubin Urine Urobilinogen Ur Leukocyte Esterase Urine WBC (Auto) Urine RBC (Auto) U Epithel Cells (Auto) Urine Bacteria (Auto) Urine Mucus 08/30/21 07:31 WBC RBC Hgb Hct MCV MCH MCHC RDW Plt Count Lymph % (Auto) [place] % (Auto) Eos % (Auto) Baso % (Auto) Lymph # (Auto) [place] # (Auto) Eos # (Auto) Baso # (Auto) Seg Neutrophils % Seg Neutrophils # VBG pH Sodium Potassium Chloride Carbon Dioxide Anion Gap BUN Creatinine Estimated GFR BUN/Creatinine Ratio Glucose POC Glucose 305 H Hemoglobin A1c Ketones Quantitative Calcium Total Bilirubin Direct Bilirubin Indirect Bilirubin AST ALT Alkaline Phosphatase Troponin T Total Protein Albumin Albumin/Globulin Ratio Lipase Urine Color Urine Turbidity Urine pH Ur Specific [place] Urine Protein Urine Glucose (UA) Urine Ketones Urine Blood Urine Nitrite Urine Bilirubin Urine Urobilinogen Ur Leukocyte Esterase Urine WBC (Auto) Urine RBC (Auto) U Epithel Cells (Auto) Urine Bacteria (Auto) Urine Mucus Assessment and Plan CT scan is highly concerning for malignancy; patient needs to be prepped for colonoscopy so clears today and golytely tonight and colonoscopy tomorrow - Patient Problems (1) Abnormal CT scan, colon Current Visit: Yes Status: Acute (2) Colonic mass Current Visit: Yes Status: Acute (3) Abdominal pain Current Visit: Yes Status: Acute
[2021-08-30] MEDS ORDERED: SODIUM CHLORIDE 0.9% 1000 ML 0 ML ONE (10:03)
[2021-08-30] MEDS: FAMOTIDINE 20 MG/2 ML INJ IV SCH ×2 (10:08→23:57)
--- NOTE | 2021-08-30 13:14 | Progress Note ---
Assessment and Plan Assessment and plan: A 52-year-old male history of hypertension and type 2 diabetes who presented with complaints of abdominal pain and nausea. No diarrhea, or constipation. (1) Acute abdominal pain Current Visit: Yes Status: Acute Plan to address problem: Symptomatic treatment Pain secondary to partial obstruction of the ascending colon GI and surgical consult (2) Primary adenocarcinoma of ascending colon Current Visit: Yes Status: Acute Plan to address problem: Patient has a mass in the ascending colon--probably adenocarcinoma No metastasis Patient may be amenable to surgery with partial colectomy Wiill defer to GI and surgery. Plan is for colonoscopy and patient will have bowel prep today (3) Hypertension Current Visit: Yes Status: Chronic Qualifiers: Hypertension type: primary hypertension Qualified Code(s): I10 - Essential (primary) hypertension Plan to address problem: Blood pressure is uncontrolled. Continue [id number]. Resume lisinopril and metoprolol. Start as needed IV hydralazine for cerebral pressure greater than 160. 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 Continue to hold oral hypoglycemic agents. Start Lantus 15 units subcu nightly. (5) DVT prophylaxis Current Visit: Yes Status: Acute Plan to address problem: On SCD and GI prophylaxis History Interval history: Still mid abdominal pain and nausea. Hospitalist Physical - Constitutional Vitals: Temp Pulse Resp BP Pulse Ox 98.3 F 82 18 175/107 97 08/30/21 10:22 08/30/21 10:22 08/30/21 10:22 08/30/21 10:22 08/30/21 10:22 General appearance: Present: no acute distress, mild distress, well-nourished - EENT Eyes: Present: PERRL, EOM intact ENT: hearing intact - Neck Neck: Present: supple, normal ROM - Respiratory Respiratory effort: normal Respiratory: bilateral: CTA - Cardiovascular Rhythm: regular Heart Sounds: Present: S1 & S2 - Extremities Extremities: No edema - Abdominal General gastrointestinal: soft, tender (Upper abdominal region.), normal bowel sounds Localized gastrointestinal: tender: epigastric periumbilical - Integumentary Integumentary: Present: clear, warm - Psychiatric Psychiatric: appropriate mood/affect HEART Score - HEART Score Troponin: Troponin T < 0.010 ng/mL (0.00-0.029) 08/29/21 11:10 Results - Labs CBC & Chem 7: 08/30/21 04:46 08/30/21 04:46 Labs: Laboratory Last Values WBC 7.3 K/mm3 (4.5-11.0) 08/30/21 04:46 RBC 4.26 M/mm3 (3.65-5.03) 08/30/21 04:46 Hgb 11.1 gm/dl (10.1-14.3) 08/30/21 04:46 Hct 34.6 % (30.3-42.9) 08/30/21 04:46 MCV 81 fl (79-97) 08/30/21 04:46 MCH 26 pg (28-32) L 08/30/21 04:46 MCHC 32 % (30-34) 08/30/21 04:46 RDW 17.2 % (13.2-15.2) H 08/30/21 04:46 Plt Count 254 K/mm3 (140-440) 08/30/21 04:46 Lymph % (Auto) 42.6 % (13.4-35.0) H 08/30/21 04:46 [place] % (Auto) 5.9 % (0.0-7.3) 08/30/21 04:46 Eos % (Auto) 4.5 % (0.0-4.3) H 08/30/21 04:46 Baso % (Auto) 0.8 % (0.0-1.8) 08/30/21 04:46 Lymph # (Auto) 3.1 K/mm3 (1.2-5.4) 08/30/21 04:46 [place] # (Auto) 0.4 K/mm3 (0.0-0.8) 08/30/21 04:46 Eos # (Auto) 0.3 K/mm3 (0.0-0.4) 08/30/21 04:46 Baso # (Auto) 0.1 K/mm3 (0.0-0.1) 08/30/21 04:46 Seg Neutrophils % 46.2 % (40.0-70.0) 08/30/21 04:46 Seg Neutrophils # 3.4 K/mm3 (1.8-7.7) 08/30/21 04:46 VBG pH 7.344 (7.320-7.420) 08/29/21 11:10 Sodium 138 mmol/L (137-145) 08/30/21 04:46 Potassium 4.1 mmol/L (3.6-5.0) 08/30/21 04:46 Chloride 104.3 mmol/L (98-107) 08/30/21 04:46 Carbon Dioxide 21 mmol/L (22-30) L 08/30/21 04:46 Anion Gap 17 mmol/L 08/30/21 04:46 BUN 9 mg/dL (7-17) 08/30/21 04:46 Creatinine 0.8 mg/dL (0.6-1.2) 08/30/21 04:46 Estimated GFR > 60 ml/min 08/30/21 04:46 BUN/Creatinine Ratio 11 % 08/30/21 04:46 Glucose 218 mg/dL (65-100) H 08/30/21 04:46 POC Glucose 305 mg/dL (70-105) H 08/30/21 07:31 Hemoglobin A1c 11.9 % (4-6) H 08/30/21 04:46 Ketones Quantitative Negative (Negative) 08/29/21 11:10 Calcium 10.1 mg/dL (8.4-10.2) 08/30/21 04:46 Total Bilirubin 0.20 mg/dL (0.1-1.2) 08/30/21 04:46 Direct Bilirubin < 0.2 mg/dL (0-0.2) 08/29/21 09:28 Indirect Bilirubin 0.0 mg/dL 08/29/21 09:28 AST 34 units/L (5-40) 08/30/21 04:46 ALT 26 units/L (7-56) 08/30/21 04:46 Alkaline Phosphatase 91 units/L (35-129) 08/30/21 04:46 Troponin T < 0.010 ng/mL (0.00-0.029) 08/29/21 11:10 Total Protein 6.5 g/dL (6.3-8.2) 08/30/21 04:46 Albumin 3.9 g/dL (3.9-5) 08/30/21 04:46 Albumin/Globulin Ratio 1.5 % 08/30/21 04:46 Lipase 50 units/L (13-60) 08/29/21 09:28 Urine Color Yellow (Yellow) 08/29/21 09:49 Urine Turbidity Clear (Clear) 08/29/21 09:49 Urine pH 5.0 (5.0-7.0) 08/29/21 09:49 Ur Specific [place] 1.017 (1.003-1.030) 08/29/21 09:49 Urine Protein <15 mg/dl mg/dL (Negative) 08/29/21 09:49 Urine Glucose (UA) >=500 mg/dL (Negative) 08/29/21 09:49 Urine Ketones Neg mg/dL (Negative) 08/29/21 09:49 Urine Blood Neg (Negative) 08/29/21 09:49 Urine Nitrite Neg (Negative) 08/29/21 09:49 Urine Bilirubin Neg (Negative) 08/29/21 09:49 Urine Urobilinogen < 2.0 mg/dL (<2.0) 08/29/21 09:49 Ur Leukocyte Esterase Neg (Negative) 08/29/21 09:49 Urine WBC (Auto) 3.0 /HPF (0.0-6.0) 08/29/21 09:49 Urine RBC (Auto) 1.0 /HPF (0.0-6.0) 08/29/21 09:49 U Epithel Cells (Auto) 2.0 /HPF (0-13.0) 08/29/21 09:49 Urine Bacteria (Auto) 1+ /HPF (Negative) 08/29/21 09:49 Urine Mucus Few /HPF 08/29/21 09:49 Active Medications - Current Medications Current Medications: Generic Name Dose Route Start Last Admin Trade Name Freq PRN Reason Stop Dose Admin Acetaminophen 650 mg 08/29/21 20:01 Acetaminophen 325 Mg Tab PO Q4H PRN Pain MILD(1-3)/Fever >100.5/GRADY Clonidine HCl 0.2 mg 09/05/21 22:00 Clonidine Tts 0.2 Mg/24 Hr Patch TD We ESTEBAN Famotidine 20 mg 08/29/21 22:00 08/30/21 10:08 Famotidine 20 Mg/2 Ml Inj IV 20 mg BID ESTEBAN Administration Hydromorphone HCl 0.5 mg 08/29/21 20:01 08/30/21 08:09 Hydromorphone 1 Mg/1 Ml Inj IV 0.5 mg Q3H PRN Administration Pain , Severe (7-10) Sodium Chloride 1,000 mls @ 75 mls/hr 08/29/21 21:00 08/29/21 23:12 Nacl 0.45% 1000 Ml IV 75 mls/hr DIRECT ESTEBAN Administration Insulin Human Lispro 0 unit 08/29/21 21:00 08/30/21 08:14 Insulin Lispro 100 Unit/Ml SUB-Q 6 unit Q6HR ESTEBAN Administration Protocol Metoclopramide HCl 10 mg 08/29/21 20:01 Metoclopramide 10 Mg/2 Ml Inj IV Q6H PRN Nausea And Vomiting Morphine Sulfate 2 mg 08/29/21 20:01 Morphine 2 Mg/1 Ml Inj IV Q4H PRN Pain, Moderate (4-6) Ondansetron HCl 4 mg 08/29/21 20:01 Ondansetron 4 Mg/2 Ml Inj IV Q8H PRN Nausea And Vomiting Polyethylene Glycol/Electrolytes 4,000 ml 08/30/21 18:00 Polyethylene Glycol/Elect Soln 4000 Ml PO 08/30/21 23:00 ONCE@1800 NR Sodium Chloride 10 ml 08/29/21 22:00 08/30/21 10:32 Sodium Chloride 0.9% 10 Ml Flush Syringe IV 10 ml BID ESTEBAN Administration Sodium Chloride 10 ml 08/29/21 20:01 Sodium Chloride 0.9% 10 Ml Flush Syringe IV PRN PRN LINE FLUSH
[2021-08-30] MEDS ORDERED: hydrALAZINE 20 MG/1 ML INJ IV PRN (14:00)
[2021-08-30] MEDS: LISINOPRIL 5 MG TAB PO SCH (14:00)
[2021-08-30] MEDS: METOPROLOL TARTRATE 25 MG TAB PO SCH (14:00)
--- NOTE | 2021-08-30 14:14 | Consultation ---
History of Present Illness Consult date: 08/30/21 Reason for consult: abdominal pain Chief complaint: abd pain - History of present illness History of present illness: 56 yo F with hx of DM who presented to ER with 1 month of worsening periumbilical and right sided abdominal pain, intermittent, crampy. NO alleviating factors. Eating food makes pain worse. +nausea recently but no vomiting. NO f/c. No melena, hematochezia. Bowel movements have been normal. Past History Past Medical History: CAD, diabetes, hypertension Past Surgical History: Other (cardiac stent) Social history: no significant social history Family history: cancer (ovarian - mother), diabetes, hypertension Medications and Allergies Allergies Allergy/AdvReac Type Severity Reaction Status Date / Time No Known Allergies Allergy Unverified 09/26/20 13:20 Home Medications Medication Instructions Recorded Confirmed Last Taken Type Lisinopril [Zestril] 10 mg PO DAILY 09/26/20 08/30/21 1 Day Ago History ~09/25/20 Metoprolol [Lopressor] 25 mg PO DAILY 09/26/20 08/30/21 1 Day Ago History ~09/25/20 glipiZIDE [Glucotrol] 10 mg PO QDAY 09/26/20 08/30/21 1 Day Ago History ~09/25/20 metFORMIN [Glucophage] 500 mg PO QDAY 09/26/20 08/30/21 1 Day Ago History ~09/25/20 Active Meds: Active Medications Acetaminophen (Acetaminophen 325 Mg Tab) 650 mg PO Q4H PRN PRN Reason: Pain MILD(1-3)/Fever >100.5/GRADY Clonidine HCl (Clonidine Tts 0.2 Mg/24 Hr Patch) 0.2 mg TD We ESTEBAN Famotidine (Famotidine 20 Mg/2 Ml Inj) 20 mg IV BID ESTEBAN Last Admin: 08/30/21 10:08 Dose: 20 mg Documented by: Hydralazine HCl (Hydralazine 20 Mg/1 Ml Inj) 5 mg IV Q6HR PRN PRN Reason: SBP > 160 Hydromorphone HCl (Hydromorphone 1 Mg/1 Ml Inj) 0.5 mg IV Q3H PRN PRN Reason: Pain , Severe (7-10) Last Admin: 08/30/21 08:09 Dose: 0.5 mg Documented by: Sodium Chloride (Nacl 0.45% 1000 Ml) 1,000 mls @ 75 mls/hr IV DIRECT ESTEBAN Last Admin: 08/29/21 23:12 Dose: 75 mls/hr Documented by: Insulin Glargine (Insulin Glargine 100 Units/Ml) 15 units SUB-Q QHS ESTEBAN Insulin Human Lispro (Insulin Lispro 100 Unit/Ml) 0 unit SUB-Q Q6HR ESTEBAN; Protoc ol Last Admin: 08/30/21 13:45 Dose: 3 unit Documented by: Lisinopril (Lisinopril 5 Mg Tab) 10 mg PO DAILY ESTEBAN Metoclopramide HCl (Metoclopramide 10 Mg/2 Ml Inj) 10 mg IV Q6H PRN PRN Reason: Nausea And Vomiting Metoprolol Tartrate (Metoprolol Tartrate 25 Mg Tab) 25 mg PO DAILY ESTEBAN Morphine Sulfate (Morphine 2 Mg/1 Ml Inj) 2 mg IV Q4H PRN PRN Reason: Pain, Moderate (4-6) Ondansetron HCl (Ondansetron 4 Mg/2 Ml Inj) 4 mg IV Q8H PRN PRN Reason: Nausea And Vomiting Polyethylene Glycol/Electrolytes (Polyethylene Glycol/Elect Soln 4000 Ml) 4,000 ml PO ONCE@1800 NR Stop: 08/30/21 23:00 Sodium Chloride (Sodium Chloride 0.9% 10 Ml Flush Syringe) 10 ml IV BID [facility] Last Admin: 08/30/21 10:32 Dose: 10 ml Documented by: Sodium Chloride (Sodium Chloride 0.9% 10 Ml Flush Syringe) 10 ml IV PRN PRN PRN Reason: LINE FLUSH Review of Systems All systems: negative (10 point ROS performed and negative except for that listed in HPI) Exam Vital Signs Temp Pulse Resp BP Pulse Ox 98.2 F 88 18 172/83 99 08/29/21 08:45 08/29/21 08:45 08/29/21 08:45 08/29/21 08:45 08/29/21 08:45 Narrative exam: Gen.: Awake, alert, oriented x3. No apparent distress ENT: Trachea midline. No lymphadenopathy. No scleral icterus or conjunctival pallor CV: S1, S2 present Respiratory: No audible wheezes Abdomen: Soft, nondistended, obese. Mild TTP supraumbilical midline and right abdomen. No rebound, rigidity, guarding Extremities: No clubbing, cyanosis, edema Results - Labs 08/30/21 04:46 08/30/21 04:46 Abnormal lab results 08/29/21 08/29/21 08/30/21 Range/Units 15:04 22:44 04:46 MCH 26 L (28-32) pg RDW 17.2 H (13.2-15.2) % Lymph % (Auto) 42.6 H (13.4-35.0) % Eos % (Auto) 4.5 H (0.0-4.3) % Carbon Dioxide (22-30) mmol/L Glucose (65-100) mg/dL POC Glucose 177 H 161 H (70-105) mg/dL Hemoglobin A1c (4-6) % 08/30/21 08/30/21 08/30/21 Range/Units 04:46 04:46 07:31 MCH (28-32) pg RDW (13.2-15.2) % Lymph % (Auto) (13.4-35.0) % Eos % (Auto) (0.0-4.3) % Carbon Dioxide 21 L (22-30) mmol/L Glucose 218 H (65-100) mg/dL POC Glucose 305 H (70-105) mg/dL Hemoglobin A1c 11.9 H (4-6) % 08/30/21 Range/Units 13:07 MCH (28-32) pg RDW (13.2-15.2) % Lymph % (Auto) (13.4-35.0) % Eos % (Auto) (0.0-4.3) % Carbon Dioxide (22-30) mmol/L Glucose (65-100) mg/dL POC Glucose 242 H (70-105) mg/dL Hemoglobin A1c (4-6) % Diabetes panel 08/30/21 08/30/21 Range/Units 04:46 04:46 Sodium 138 (137-145) mmol/L Potassium 4.1 (3.6-5.0) mmol/L Chloride 104.3 (98-107) mmol/L Carbon Dioxide 21 L (22-30) mmol/L BUN 9 (7-17) mg/dL Creatinine 0.8 (0.6-1.2) mg/dL Glucose 218 H (65-100) mg/dL Hemoglobin A1c 11.9 H (4-6) % Calcium 10.1 (8.4-10.2) mg/dL AST 34 (5-40) units/L ALT 26 (7-56) units/L Alkaline Phosphatase 91 (35-129) units/L Total Protein 6.5 (6.3-8.2) g/dL Albumin 3.9 (3.9-5) g/dL Calcium panel 08/30/21 Range/Units 04:46 Calcium 10.1 (8.4-10.2) mg/dL Albumin 3.9 (3.9-5) g/dL Pituitary panel 08/30/21 Range/Units 04:46 Sodium 138 (137-145) mmol/L Potassium 4.1 (3.6-5.0) mmol/L Chloride 104.3 (98-107) mmol/L Carbon Dioxide 21 L (22-30) mmol/L BUN 9 (7-17) mg/dL Creatinine 0.8 (0.6-1.2) mg/dL Glucose 218 H (65-100) mg/dL Calcium 10.1 (8.4-10.2) mg/dL Adrenal panel 08/30/21 Range/Units 04:46 Sodium 138 (137-145) mmol/L Potassium 4.1 (3.6-5.0) mmol/L Chloride 104.3 (98-107) mmol/L Carbon Dioxide 21 L (22-30) mmol/L BUN 9 (7-17) mg/dL Creatinine 0.8 (0.6-1.2) mg/dL Glucose 218 H (65-100) mg/dL Calcium 10.1 (8.4-10.2) mg/dL Total Bilirubin 0.20 (0.1-1.2) mg/dL AST 34 (5-40) units/L ALT 26 (7-56) units/L Alkaline Phosphatase 91 (35-129) units/L Total Protein 6.5 (6.3-8.2) g/dL Albumin 3.9 (3.9-5) g/dL - Imaging Chest x-ray: report reviewed, image reviewed CT scan - abdomen: report reviewed, image reviewed CT scan - pelvis: report reviewed, image reviewed Assessment and Plan 56 yo F with abdominal pain, ascending colon mass Plan: 1. CLD 2. GI notes reviewed - cscope planned for tomorrow 3. prn pain control 4. obtain CEA 5. surgical recs pending cscope results 6. will need cards consult for preop risk assessment Thank you, please call with questions.
[2021-08-30] MEDS ORDERED: POLYETHYLENE GLYCOL/ELECT SOLN 4000 ML PO NR (18:00)
[2021-08-30] MEDS: SODIUM CHLORIDE 0.45% 1000 ML 1,000 ML IV SCH (23:51)
[2021-08-30] MEDS: INSULIN GLARGINE 100 UNITS/ML SUB-Q SCH (23:58)
[2021-08-31] MEDS ORDERED: POLYETHYLENE GLYCOL/ELECT SOLN 4000 ML PO ONE (00:14)
[2021-08-31] MEDS: INSULIN LISPRO 100 UNIT/ML SUB-Q SCH ×5 (00:15→23:25)
--- NOTE | 2021-08-31 06:41 | Event Note ---
Date: 08/31/21 Spoke with patient's nurse, patient was given the prep and completed it around 5 AM. She is on schedule for colonoscopy in Endo suite sometime after 1 PM today
[2021-08-31] MEDS: METOPROLOL TARTRATE 25 MG TAB PO SCH ×2 (09:25→16:40)
[2021-08-31] MEDS: LISINOPRIL 5 MG TAB PO SCH ×2 (09:26→16:41)
[2021-08-31] MEDS: HYDROmorphone 1 MG/1 ML INJ IV PRN ×5 (09:28→23:27)
[2021-08-31] MEDS: FAMOTIDINE 20 MG/2 ML INJ IV SCH ×2 (09:28→23:25)
[2021-08-31] MEDS ORDERED: SODIUM CHLORIDE 0.9% 1000 ML 1,000 ML IV SCH (10:00)
[2021-08-31] MEDS: SODIUM CHLORIDE 0.45% 1000 ML 1,000 ML IV SCH (13:00)
--- NOTE | 2021-08-31 13:34 | Progress Note ---
Assessment and Plan Assessment and plan: A 52-year-old male history of hypertension and type 2 diabetes who presented with complaints of abdominal pain and nausea. No diarrhea, or constipation. (1) Acute abdominal pain Most likely related to colon mass, resolved Continue as needed analgesic. Continue antiemetic for nausea. GI and surgical input appreciated (2) Primary adenocarcinoma of ascending colon Patient has a mass in the ascending colon--probably adenocarcinoma Plan is for colonoscopy today by GI. CEA pending. (3) Hypertension Controlled. Continue current medication (4) Type 2 diabetes mellitus Continue coverage Accu-Cheks every 6 and moderate dose sliding scale coverage HbA1c 11.9. Continue to hold oral hypoglycemic agents. Continue Lantus 15 units subcu nightly. (5) DVT prophylaxis On SCD and GI prophylaxis History Interval history: He had nausea earlier which has resolved. No abdominal pain today. Hospitalist Physical - Constitutional Vitals: Temp Pulse Resp BP Pulse Ox 98.6 F 79 18 148/82 94 08/30/21 23:01 08/31/21 06:30 08/31/21 06:30 08/31/21 06:30 08/31/21 06:30 General appearance: Present: no acute distress, mild distress, well-nourished - EENT Eyes: Present: PERRL, EOM intact ENT: hearing intact - Neck Neck: Present: supple, normal ROM - Respiratory Respiratory effort: normal - Cardiovascular Rhythm: regular Heart Sounds: Present: S1 & S2 - Extremities Extremities: No edema - Abdominal General gastrointestinal: soft, non-tender, non-distended, normal bowel sounds - Integumentary Integumentary: Present: warm, dry - Psychiatric Psychiatric: appropriate mood/affect HEART Score - HEART Score Troponin: Troponin T < 0.010 ng/mL (0.00-0.029) 08/29/21 11:10 Results - Labs CBC & Chem 7: 08/30/21 04:46 08/30/21 04:46 Labs: Laboratory Last Values WBC 7.3 K/mm3 (4.5-11.0) 08/30/21 04:46 RBC 4.26 M/mm3 (3.65-5.03) 08/30/21 04:46 Hgb 11.1 gm/dl (10.1-14.3) 08/30/21 04:46 Hct 34.6 % (30.3-42.9) 08/30/21 04:46 MCV 81 fl (79-97) 08/30/21 04:46 MCH 26 pg (28-32) L 08/30/21 04:46 MCHC 32 % (30-34) 08/30/21 04:46 RDW 17.2 % (13.2-15.2) H 08/30/21 04:46 Plt Count 254 K/mm3 (140-440) 08/30/21 04:46 Lymph % (Auto) 42.6 % (13.4-35.0) H 08/30/21 04:46 [place] % (Auto) 5.9 % (0.0-7.3) 08/30/21 04:46 Eos % (Auto) 4.5 % (0.0-4.3) H 08/30/21 04:46 Baso % (Auto) 0.8 % (0.0-1.8) 08/30/21 04:46 Lymph # (Auto) 3.1 K/mm3 (1.2-5.4) 08/30/21 04:46 [place] # (Auto) 0.4 K/mm3 (0.0-0.8) 08/30/21 04:46 Eos # (Auto) 0.3 K/mm3 (0.0-0.4) 08/30/21 04:46 Baso # (Auto) 0.1 K/mm3 (0.0-0.1) 08/30/21 04:46 Seg Neutrophils % 46.2 % (40.0-70.0) 08/30/21 04:46 Seg Neutrophils # 3.4 K/mm3 (1.8-7.7) 08/30/21 04:46 VBG pH 7.344 (7.320-7.420) 08/29/21 11:10 Sodium 138 mmol/L (137-145) 08/30/21 04:46 Potassium 4.1 mmol/L (3.6-5.0) 08/30/21 04:46 Chloride 104.3 mmol/L (98-107) 08/30/21 04:46 Carbon Dioxide 21 mmol/L (22-30) L 08/30/21 04:46 Anion Gap 17 mmol/L 08/30/21 04:46 BUN 9 mg/dL (7-17) 08/30/21 04:46 Creatinine 0.8 mg/dL (0.6-1.2) 08/30/21 04:46 Estimated GFR > 60 ml/min 08/30/21 04:46 BUN/Creatinine Ratio 11 % 08/30/21 04:46 Glucose 218 mg/dL (65-100) H 08/30/21 04:46 POC Glucose 192 mg/dL (70-105) H 08/31/21 11:24 Hemoglobin A1c 11.9 % (4-6) H 08/30/21 04:46 Ketones Quantitative Negative (Negative) 08/29/21 11:10 Calcium 10.1 mg/dL (8.4-10.2) 08/30/21 04:46 Total Bilirubin 0.20 mg/dL (0.1-1.2) 08/30/21 04:46 Direct Bilirubin < 0.2 mg/dL (0-0.2) 08/29/21 09:28 Indirect Bilirubin 0.0 mg/dL 08/29/21 09:28 AST 34 units/L (5-40) 08/30/21 04:46 ALT 26 units/L (7-56) 08/30/21 04:46 Alkaline Phosphatase 91 units/L (35-129) 08/30/21 04:46 Troponin T < 0.010 ng/mL (0.00-0.029) 08/29/21 11:10 Total Protein 6.5 g/dL (6.3-8.2) 08/30/21 04:46 Albumin 3.9 g/dL (3.9-5) 08/30/21 04:46 Albumin/Globulin Ratio 1.5 % 08/30/21 04:46 Lipase 50 units/L (13-60) 08/29/21 09:28 Urine Color Yellow (Yellow) 08/29/21 09:49 Urine Turbidity Clear (Clear) 08/29/21 09:49 Urine pH 5.0 (5.0-7.0) 08/29/21 09:49 Ur Specific [place] 1.017 (1.003-1.030) 08/29/21 09:49 Urine Protein <15 mg/dl mg/dL (Negative) 08/29/21 09:49 Urine Glucose (UA) >=500 mg/dL (Negative) 08/29/21 09:49 Urine Ketones Neg mg/dL (Negative) 08/29/21 09:49 Urine Blood Neg (Negative) 08/29/21 09:49 Urine Nitrite Neg (Negative) 08/29/21 09:49 Urine Bilirubin Neg (Negative) 08/29/21 09:49 Urine Urobilinogen < 2.0 mg/dL (<2.0) 08/29/21 09:49 Ur Leukocyte Esterase Neg (Negative) 08/29/21 09:49 Urine WBC (Auto) 3.0 /HPF (0.0-6.0) 08/29/21 09:49 Urine RBC (Auto) 1.0 /HPF (0.0-6.0) 08/29/21 09:49 U Epithel Cells (Auto) 2.0 /HPF (0-13.0) 08/29/21 09:49 Urine Bacteria (Auto) 1+ /HPF (Negative) 08/29/21 09:49 Urine Mucus Few /HPF 08/29/21 09:49 [place]/IV: Voiding Method Toilet Active Medications - Current Medications Current Medications: Generic Name Dose Route Start Last Admin Trade Name Freq PRN Reason Stop Dose Admin Acetaminophen 650 mg 08/29/21 20:01 Acetaminophen 325 Mg Tab PO Q4H PRN Pain MILD(1-3)/Fever >100.5/GRADY Clonidine HCl 0.2 mg 09/05/21 22:00 Clonidine Tts 0.2 Mg/24 Hr Patch TD We ESTEBAN Famotidine 20 mg 08/29/21 22:00 08/31/21 09:28 Famotidine 20 Mg/2 Ml Inj IV 20 mg BID ESTEBAN Administration Hydralazine HCl 5 mg 08/30/21 14:00 Hydralazine 20 Mg/1 Ml Inj IV Q6HR PRN SBP > 160 Hydromorphone HCl 0.5 mg 08/29/21 20:01 08/31/21 09:28 Hydromorphone 1 Mg/1 Ml Inj IV 0.5 mg Q3H PRN Administration Pain , Severe (7-10) Sodium Chloride 1,000 mls @ 75 mls/hr 08/29/21 21:00 08/30/21 23:51 Nacl 0.45% 1000 Ml IV 75 mls/hr DIRECT ESTEBAN Administration Sodium Chloride 1,000 mls @ 50 mls/hr 08/31/21 10:00 Nacl 0.9% 1000 Ml IV 09/01/21 09:59 DIRECT [facility] Insulin Glargine 15 units 08/30/21 22:00 08/30/21 23:58 Insulin Glargine 100 Units/Ml SUB-Q 15 units QHS [facility] Administration Insulin Human Lispro 0 unit 08/29/21 21:00 08/31/21 06:56 Insulin Lispro 100 Unit/Ml SUB-Q Not Given Q6HR [facility] Protocol Lisinopril 10 mg 08/30/21 14:00 08/31/21 09:26 Lisinopril 5 Mg Tab PO Not Given DAILY [facility] Metoclopramide HCl 10 mg 08/29/21 20:01 Metoclopramide 10 Mg/2 Ml Inj IV Q6H PRN Nausea And Vomiting Metoprolol Tartrate 25 mg 08/30/21 14:00 08/31/21 09:25 Metoprolol Tartrate 25 Mg Tab PO Not Given DAILY [facility] Ondansetron HCl 4 mg 08/29/21 20:01 Ondansetron 4 Mg/2 Ml Inj IV Q8H PRN Nausea And Vomiting Sodium Chloride 10 ml 08/29/21 22:00 08/31/21 09:28 Sodium Chloride 0.9% 10 Ml Flush Syringe IV 10 ml BID [facility] Administration Sodium Chloride 10 ml 08/29/21 20:01 Sodium Chloride 0.9% 10 Ml Flush Syringe IV PRN PRN LINE FLUSH
[2021-08-31] MEDS ORDERED: propofoL 200 MG/20 ML VIAL IV ONE ×2 (14:39→15:02)
[2021-08-31] MEDS ORDERED: LIDOCAINE MPF (2%) 20 MG/1 ML VIAL 5 ML ONE (14:42)
--- NOTE | 2021-08-31 15:26 | Anesthesia Consultation ---
Anesthesia Consult and Med Hx Date of service: 08/31/21 - Airway Anesthetic Teeth Evaluation: Good ROM Head & Neck: Adequate Mental/Hyoid Distance: Adequate Mallampati Class: Class II Intubation Access Assessment: Good - Pulmonary Exam CTA: Yes - Cardiac Exam Cardiac Exam: No Murmur - Pre-Operative Health Status ASA Pre-Surgery Classification: ASA3 Proposed Anesthetic Plan: MAC - Pulmonary Hx Smoking: Yes (quit 2004) Hx Asthma: No COPD: No Hx Pneumonia: No - Cardiovascular System Hx Hypertension: Yes (meds this ) Hx Coronary Artery Disease: Yes (Stent 2017) Hx Heart Attack/AMI: Yes (2017; EKG:NSR 08-29-2021) Hx Angina: No - Central Nervous System Hx Seizures: No - Endocrine Hx Renal Disease: No Hx End Stage Renal Disease: No Hx Liver Disease: No Hx Non-Insulin Dependent Diabetes: Yes - Hematic Hx Sickle Cell Disease: No - Additional Comments Anesthesia Medical History Comments: no anesthesia complicactions with previous sx. appendectomy and Hernia repair
--- NOTE | 2021-08-31 15:27 | Anesthesia Day of Surgery ---
Anesthesia Day of Surgery - Day of Surgery Patient Examined: Yes Patient H&P Reviewed: Yes Patient is NPO: Yes
[2021-08-31] MEDS ORDERED: ONDANSETRON 4 MG/2 ML INJ IV PRN (15:33)
[2021-08-31] MEDS ORDERED: hydrALAZINE 20 MG/1 ML INJ IV ONE (15:34)
--- NOTE | 2021-08-31 16:29 | Operative Report ---
Operative Report Operative Report: DOS: 08/31/21 SURGEON: Glynn Oconnor MD COLONOSCOPY WITH BIOPSY AND TATTOO REPORT PREOPERATIVE AND POSTOPERATIVE DIAGNOSIS: Colon mass DESCRIPTION OF PROCEDURE: The colonoscope was passed to the cecum as identified by the ileocecal valve and appendiceal orifice. Scope was carefully withdrawn. Retroflexion was performed in the rectum. At the end of procedure, the scope was cleaned using normal technique. Vital signs monitored continuously throughout. SEDATION: Provided by [facility]. Quality of the prep was adequate. COMPLICATIONS: None. ESTIMATED BLOOD LOSS: Minimal FINDINGS: * Hemorrhoids were found on perennial exam * Nonbleeding external and internal hemorrhoids were found. The hemorrhoids were small * And ulcerated partially obstructing large mass was found in the ascending colon. The mass was circumferential. The mass measures 6 cm in length. Oozing was present. Biopsies were taken with cold forceps for histology. Area was tattooed with 4 mL of spot ink, 2 cc at the proximal margin and 2 cc at the distal margin * Remainder of exam was unremarkable RECOMMENDATIONS: * I recommend consultation to oncology * Follow-up biopsy results * I spoke with Dr. Castanon and informed her of the test results. Per her recommendation I started the patient on a clear liquid diet. Patient will require surgery though as the mass is quite large and circumferential * Repeat colonoscopy 1 year for surveillance * All first-degree relatives require colonoscopies every 5 years starting age 40 GI will sign off please call us back if we can be of any further assistance
--- NOTE | 2021-08-31 17:39 | Progress Note ---
Assessment and Plan 56 yo F with abdominal pain, ascending colon mass cscope 08/31/21 - Ulcerated, partially obstructing, large, circumfrential mass in the ascending colon measuring 6 cm. Plan: 1. continue CLD only -> do not advance 2. CEA pending 3. prn pain control 4. DVT ppx 5. Oncology consult 6. Recommend right hemicolectomy. I discussed the colonoscopy findings with the patient and the recommended surgical treatment. Explained to the patient the procedure in detail along with risks, benefits, alternatives to surgery. All questions answered and patient is agreeable to proceed with surgery. Possible OR on Friday afternoon if timing available Thank you for this consultation. Please call with any questions or concerns. Evaluation and treatment of this patient was during the time of the national and state emergency arising from COVID19 coronavirus pandemic. Treatment and procedures performed meet the current and available best practice and guidelines for patient during the COVID pandemic. Subjective Date of service: 08/31/21 Narrative: Patient seen and examined. No acute complaints. Status post colonoscopy today. Tolerating clear liquids. No nausea or vomiting. Afebrile Objective Vital Signs - 12hr 08/31/21 08/31/21 08/31/21 06:30 11:25 13:00 Temperature 97.9 F Pulse Rate 79 66 Respiratory 18 18 Rate Blood Pressure 148/82 148/83 O2 Sat by Pulse 94 96 97 Oximetry 08/31/21 08/31/21 08/31/21 15:15 15:20 15:25 Temperature 97.9 F Pulse Rate 87 90 90 Respiratory 18 16 16 Rate Blood Pressure 163/100 174/97 164/96 O2 Sat by Pulse 98 99 96 Oximetry 08/31/21 08/31/21 08/31/21 15:30 15:33 15:34 Temperature Pulse Rate 77 74 Respiratory 17 20 Rate Blood Pressure 174/100 174/100 O2 Sat by Pulse 97 Oximetry 08/31/21 08/31/21 08/31/21 15:43 15:45 16:00 Temperature Pulse Rate 74 73 Respiratory 13 15 14 Rate Blood Pressure 167/90 167/82 O2 Sat by Pulse 95 95 Oximetry 08/31/21 08/31/21 08/31/21 16:03 16:13 16:15 Temperature 97.8 F Pulse Rate 75 Respiratory 14 14 15 Rate Blood Pressure 162/70 O2 Sat by Pulse 96 Oximetry 08/31/21 16:30 Temperature 98.1 F Pulse Rate 81 Respiratory 20 Rate Blood Pressure 165/88 O2 Sat by Pulse 99 Oximetry - General physical appearance Narrative Exam: Gen.: Awake, alert, oriented x3. No apparent distress ENT: Trachea midline. No lymphadenopathy. No scleral icterus or conjunctival pallor CV: S1, S2 present Respiratory: No audible wheezes Abdomen: Soft, nondistended, nontender. No rebound, rigidity, guarding Extremities: No clubbing, cyanosis, edema - Labs 08/30/21 04:46 08/30/21 04:46
[2021-08-31] MEDS: INSULIN GLARGINE 100 UNITS/ML SUB-Q SCH (23:25)
--- NOTE | 2021-09-01 01:02 | Hem/Onc Consultation ---
History of Present Illness - Reason for Consult Consult date: 09/01/21 colon mass - History of Present Illness Heme/onc consult note televisit via tsqrd CPT: 67752 Dx: colon mass This is a 52yo female who presents to the ED with nausea and abdominal pain Pain has increased over the last few days Denies diarrhea, constipation, weight loss Pt with history of diabetes and HTN Covid vaccinated Colonoscopy 08/31/21 c/w ulcerated, partially obstructing, large, circumfrential mass in the ascending colon measuring 6 cm General surgery consulted--planning for possible OR on Friday afternoon if timing available DATA REVIEWED BELOW WBC 7.3 Hgb 11.1 Hct 34.6 MCV 81 Plts 254 IMP: New colon mass Relative high lymph percentage--not a problem Plan: AM labs to include iron panel, TIBC, CEA Agree with DVT ppx Hemicolectomy when stress test is complete Laboratory Last Values WBC 7.3 K/mm3 (4.5-11.0) 08/30/21 04:46 RBC 4.26 M/mm3 (3.65-5.03) 08/30/21 04:46 Hgb 11.1 gm/dl (10.1-14.3) 08/30/21 04:46 Hct 34.6 % (30.3-42.9) 08/30/21 04:46 MCV 81 fl (79-97) 08/30/21 04:46 MCH 26 pg (28-32) L 08/30/21 04:46 MCHC 32 % (30-34) 08/30/21 04:46 RDW 17.2 % (13.2-15.2) H 08/30/21 04:46 Plt Count 254 K/mm3 (140-440) 08/30/21 04:46 Lymph % (Auto) 42.6 % (13.4-35.0) H 08/30/21 04:46 [place] % (Auto) 5.9 % (0.0-7.3) 08/30/21 04:46 Eos % (Auto) 4.5 % (0.0-4.3) H 08/30/21 04:46 Baso % (Auto) 0.8 % (0.0-1.8) 08/30/21 04:46 Lymph # (Auto) 3.1 K/mm3 (1.2-5.4) 08/30/21 04:46 [place] # (Auto) 0.4 K/mm3 (0.0-0.8) 08/30/21 04:46 Eos # (Auto) 0.3 K/mm3 (0.0-0.4) 08/30/21 04:46 Baso # (Auto) 0.1 K/mm3 (0.0-0.1) 08/30/21 04:46 Seg Neutrophils % 46.2 % (40.0-70.0) 08/30/21 04:46 Seg Neutrophils # 3.4 K/mm3 (1.8-7.7) 08/30/21 04:46 VBG pH 7.344 (7.320-7.420) 08/29/21 11:10 Sodium 138 mmol/L (137-145) 08/30/21 04:46 Potassium 4.1 mmol/L (3.6-5.0) 08/30/21 04:46 Chloride 104.3 mmol/L (98-107) 08/30/21 04:46 Carbon Dioxide 21 mmol/L (22-30) L 08/30/21 04:46 Anion Gap 17 mmol/L 08/30/21 04:46 BUN 9 mg/dL (7-17) 08/30/21 04:46 Creatinine 0.8 mg/dL (0.6-1.2) 08/30/21 04:46 Estimated GFR > 60 ml/min 08/30/21 04:46 BUN/Creatinine Ratio 11 % 08/30/21 04:46 Glucose 218 mg/dL (65-100) H 08/30/21 04:46 POC Glucose 203 mg/dL (70-105) H 08/31/21 21:50 Hemoglobin A1c 11.9 % (4-6) H 08/30/21 04:46 Ketones Quantitative Negative (Negative) 08/29/21 11:10 Calcium 10.1 mg/dL (8.4-10.2) 08/30/21 04:46 Total Bilirubin 0.20 mg/dL (0.1-1.2) 08/30/21 04:46 Direct Bilirubin < 0.2 mg/dL (0-0.2) 08/29/21 09:28 Indirect Bilirubin 0.0 mg/dL 08/29/21 09:28 AST 34 units/L (5-40) 08/30/21 04:46 ALT 26 units/L (7-56) 08/30/21 04:46 Alkaline Phosphatase 91 units/L (35-129) 08/30/21 04:46 Troponin T < 0.010 ng/mL (0.00-0.029) 08/29/21 11:10 Total Protein 6.5 g/dL (6.3-8.2) 08/30/21 04:46 Albumin 3.9 g/dL (3.9-5) 08/30/21 04:46 Albumin/Globulin Ratio 1.5 % 08/30/21 04:46 Lipase 50 units/L (13-60) 08/29/21 09:28 Urine Color Yellow (Yellow) 08/29/21 09:49 Urine Turbidity Clear (Clear) 08/29/21 09:49 Urine pH 5.0 (5.0-7.0) 08/29/21 09:49 Ur Specific [place] 1.017 (1.003-1.030) 08/29/21 09:49 Urine Protein <15 mg/dl mg/dL (Negative) 08/29/21 09:49 Urine Glucose (UA) >=500 mg/dL (Negative) 08/29/21 09:49 Urine Ketones Neg mg/dL (Negative) 08/29/21 09:49 Urine Blood Neg (Negative) 08/29/21 09:49 Urine Nitrite Neg (Negative) 08/29/21 09:49 Urine Bilirubin Neg (Negative) 08/29/21 09:49 Urine Urobilinogen < 2.0 mg/dL (<2.0) 08/29/21 09:49 Ur Leukocyte Esterase Neg (Negative) 08/29/21 09:49 Urine WBC (Auto) 3.0 /HPF (0.0-6.0) 08/29/21 09:49 Urine RBC (Auto) 1.0 /HPF (0.0-6.0) 08/29/21 09:49 U Epithel Cells (Auto) 2.0 /HPF (0-13.0) 08/29/21 09:49 Urine Bacteria (Auto) 1+ /HPF (Negative) 08/29/21 09:49 Urine Mucus Few /HPF 08/29/21 09:49 Past History Past Medical History: CAD, diabetes, hypertension Past Surgical History: Other (cardiac stent) Social history: no significant social history Family history: cancer (ovarian - mother), diabetes, hypertension Medications and Allergies Allergies Allergy/AdvReac Type Severity Reaction Status Date / Time No Known Allergies Allergy Verified 08/31/21 00:24 Home Medications Medication Instructions Recorded Confirmed Last Taken Type Lisinopril [Zestril] 10 mg PO DAILY 09/26/20 08/31/21 08/29/21 08:00 History 10 mg Metoprolol [Lopressor] 25 mg PO DAILY 09/26/20 08/31/21 08/29/21 08:00 History 25 mg glipiZIDE [Glucotrol] 10 mg PO QDAY 09/26/20 08/31/21 08/29/21 08:00 History 10 mg metFORMIN [Glucophage] 1,000 mg PO QDAY 09/26/20 08/31/21 08/29/21 08:00 History 1000 mg Gabapentin 300 mg PO DAILY 08/31/21 08/31/21 08/27/21 21:00 History 300 Pantoprazole [Protonix TAB] 40 mg PO BID 08/31/21 08/31/21 08/29/21 08:00 History 40 mg Active Meds: Active Medications Acetaminophen (Acetaminophen 325 Mg Tab) 650 mg PO Q4H PRN PRN Reason: Pain MILD(1-3)/Fever >100.5/GRADY Clonidine HCl (Clonidine Tts 0.2 Mg/24 Hr Patch) 0.2 mg TD We [facility] Enoxaparin Sodium (Enoxaparin 40 Mg/0.4 Ml Inj) 40 mg SUB-Q DAILY [facility]; Protocol Famotidine (Famotidine 20 Mg/2 Ml Inj) 20 mg IV BID ESTEBAN Last Admin: 08/31/21 23:25 Dose: 20 mg Documented by: Hydralazine HCl (Hydralazine 20 Mg/1 Ml Inj) 5 mg IV Q6HR PRN PRN Reason: SBP > 160 Hydromorphone HCl (Hydromorphone 1 Mg/1 Ml Inj) 0.5 mg IV Q3H PRN PRN Reason: Pain , Severe (7-10) Last Admin: 08/31/21 23:27 Dose: 0.5 mg Documented by: Hydromorphone HCl (Hydromorphone 1 Mg/1 Ml Inj) 0.5 mg IV Q10MIN PRN PRN Reason: Pain , Severe (7-10) Stop: 09/01/21 15:32 Last Admin: 08/31/21 15:43 Dose: 0.5 mg Documented by: Sodium Chloride (Nacl 0.45% 1000 Ml) 1,000 mls @ 75 mls/hr IV DIRECT ESTEBAN Last Admin: 08/31/21 13:00 Dose: 75 mls/hr Documented by: Sodium Chloride (Nacl 0.9% 1000 Ml) 1,000 mls @ 50 mls/hr IV DIRECT ESTEBAN Stop: 09/01/21 09:59 Insulin Glargine (Insulin Glargine 100 Units/Ml) 15 units SUB-Q QHS [facility] Last Admin: 08/31/21 23:25 Dose: 15 units Documented by: Insulin Human Lispro (Insulin Lispro 100 Unit/Ml) 0 unit SUB-Q Q6HR [facility]; Pr otocol Last Admin: 08/31/21 23:25 Dose: 3 unit Documented by: Lisinopril (Lisinopril 5 Mg Tab) 10 mg PO DAILY [facility] Last Admin: 08/31/21 16:41 Dose: 10 mg Documented by: Metoclopramide HCl (Metoclopramide 10 Mg/2 Ml Inj) 10 mg IV Q6H PRN PRN Reason: Nausea And Vomiting Metoprolol Tartrate (Metoprolol Tartrate 25 Mg Tab) 25 mg PO DAILY [facility] Last Admin: 08/31/21 16:40 Dose: 25 mg Documented by: Ondansetron HCl (Ondansetron 4 Mg/2 Ml Inj) 4 mg IV Q8H PRN PRN Reason: Nausea And Vomiting Ondansetron HCl (Ondansetron 4 Mg/2 Ml Inj) 4 mg IV ONCE PRN PRN Reason: Nausea And Vomiting Sodium Chloride (Sodium Chloride 0.9% 10 Ml Flush Syringe) 10 ml IV BID [facility] Last Admin: 08/31/21 23:26 Dose: 10 ml Documented by: Sodium Chloride (Sodium Chloride 0.9% 10 Ml Flush Syringe) 10 ml IV PRN PRN PRN Reason: LINE FLUSH Exam - Constitutional Vitals: Last Vital Signs Temp 98.1 F 08/31/21 16:30 Pulse 81 08/31/21 16:30 Resp 20 08/31/21 16:30 BP 165/88 08/31/21 16:30 Pulse Ox 99 08/31/21 16:30 Results - Labs lab Results: Laboratory Results - last 24 hr 08/31/21 08/31/21 08/31/21 06:27 11:24 15:24 POC Glucose 204 H 192 H 188 H 08/31/21 21:50 POC Glucose 203 H
[2021-09-01] MEDS: SODIUM CHLORIDE 0.45% 1000 ML 1,000 ML IV SCH ×2 (02:39→21:38)
[2021-09-01] MEDS: INSULIN LISPRO 100 UNIT/ML SUB-Q SCH ×5 (06:48→22:31)
--- NOTE | 2021-09-01 09:56 | Progress Note ---
Assessment and Plan Assessment and plan: A 52-year-old male history of hypertension and type 2 diabetes who presented with complaints of abdominal pain and nausea. No diarrhea, or constipation. (1) Acute abdominal pain Most likely related to colon mass, resolved Continue as needed analgesic. Continue antiemetic for nausea. GI and surgical input appreciated (2) Primary adenocarcinoma of ascending colon Patient has a mass in the ascending colon--probably adenocarcinoma Plan is for colonoscopy today by GI. CEA pending. (3) Hypertension Controlled. Continue current medication (4) Type 2 diabetes mellitus Continue coverage Accu-Cheks every 6 and moderate dose sliding scale coverage HbA1c 11.9. Continue to hold oral hypoglycemic agents. Continue Lantus 15 units subcu nightly. (5) DVT prophylaxis On and GI prophylaxis 09/01/21 Patient with colonic mass. For surgery on Friday. History Interval history: Abdominal pain Hospitalist Physical - Physical exam Narrative exam: Gen: Not in acute distress, lying in bed,obese HEENT: Normocephalic, atraumatic Neck: supple, Lungs: Clear to auscultation bilaterally, no wheeze Heart: S1 and S2 reg, no murmurs, rubs or gallop Abd:soft, mild tender, non distended, normal bowel sounds Ext: No edema, no clubbing or cyanosis Neuro: Awake, alert, oriented X 3, moves all extremities - Constitutional Vitals: Temp Pulse Resp BP Pulse Ox 100.2 F H 98 H 18 148/89 95 09/01/21 04:28 09/01/21 04:28 09/01/21 04:28 09/01/21 04:28 09/01/21 04:28 General appearance: Present: no acute distress, mild distress, well-nourished HEART Score - HEART Score Troponin: Troponin T < 0.010 ng/mL (0.00-0.029) 08/29/21 11:10 Results - Labs CBC & Chem 7: 08/30/21 04:46 08/30/21 04:46 Labs: Laboratory Last Values WBC 7.3 K/mm3 (4.5-11.0) 08/30/21 04:46 RBC 4.26 M/mm3 (3.65-5.03) 08/30/21 04:46 Hgb 11.1 gm/dl (10.1-14.3) 08/30/21 04:46 Hct 34.6 % (30.3-42.9) 08/30/21 04:46 MCV 81 fl (79-97) 08/30/21 04:46 MCH 26 pg (28-32) L 08/30/21 04:46 MCHC 32 % (30-34) 08/30/21 04:46 RDW 17.2 % (13.2-15.2) H 08/30/21 04:46 Plt Count 254 K/mm3 (140-440) 08/30/21 04:46 Lymph % (Auto) 42.6 % (13.4-35.0) H 08/30/21 04:46 [place] % (Auto) 5.9 % (0.0-7.3) 08/30/21 04:46 Eos % (Auto) 4.5 % (0.0-4.3) H 08/30/21 04:46 Baso % (Auto) 0.8 % (0.0-1.8) 08/30/21 04:46 Lymph # (Auto) 3.1 K/mm3 (1.2-5.4) 08/30/21 04:46 [place] # (Auto) 0.4 K/mm3 (0.0-0.8) 08/30/21 04:46 Eos # (Auto) 0.3 K/mm3 (0.0-0.4) 08/30/21 04:46 Baso # (Auto) 0.1 K/mm3 (0.0-0.1) 08/30/21 04:46 Seg Neutrophils % 46.2 % (40.0-70.0) 08/30/21 04:46 Seg Neutrophils # 3.4 K/mm3 (1.8-7.7) 08/30/21 04:46 VBG pH 7.344 (7.320-7.420) 08/29/21 11:10 Sodium 138 mmol/L (137-145) 08/30/21 04:46 Potassium 4.1 mmol/L (3.6-5.0) 08/30/21 04:46 Chloride 104.3 mmol/L (98-107) 08/30/21 04:46 Carbon Dioxide 21 mmol/L (22-30) L 08/30/21 04:46 Anion Gap 17 mmol/L 08/30/21 04:46 BUN 9 mg/dL (7-17) 08/30/21 04:46 Creatinine 0.8 mg/dL (0.6-1.2) 08/30/21 04:46 Estimated GFR > 60 ml/min 08/30/21 04:46 BUN/Creatinine Ratio 11 % 08/30/21 04:46 Glucose 218 mg/dL (65-100) H 08/30/21 04:46 POC Glucose 171 mg/dL (70-105) H 09/01/21 07:33 Hemoglobin A1c 11.9 % (4-6) H 08/30/21 04:46 Ketones Quantitative Negative (Negative) 08/29/21 11:10 Calcium 10.1 mg/dL (8.4-10.2) 08/30/21 04:46 Total Bilirubin 0.20 mg/dL (0.1-1.2) 08/30/21 04:46 Direct Bilirubin < 0.2 mg/dL (0-0.2) 08/29/21 09:28 Indirect Bilirubin 0.0 mg/dL 08/29/21 09:28 AST 34 units/L (5-40) 08/30/21 04:46 ALT 26 units/L (7-56) 08/30/21 04:46 Alkaline Phosphatase 91 units/L (35-129) 08/30/21 04:46 Troponin T < 0.010 ng/mL (0.00-0.029) 08/29/21 11:10 Total Protein 6.5 g/dL (6.3-8.2) 08/30/21 04:46 Albumin 3.9 g/dL (3.9-5) 08/30/21 04:46 Albumin/Globulin Ratio 1.5 % 08/30/21 04:46 Lipase 50 units/L (13-60) 08/29/21 09:28 Urine Color Yellow (Yellow) 08/29/21 09:49 Urine Turbidity Clear (Clear) 08/29/21 09:49 Urine pH 5.0 (5.0-7.0) 08/29/21 09:49 Ur Specific [place] 1.017 (1.003-1.030) 08/29/21 09:49 Urine Protein <15 mg/dl mg/dL (Negative) 08/29/21 09:49 Urine Glucose (UA) >=500 mg/dL (Negative) 08/29/21 09:49 Urine Ketones Neg mg/dL (Negative) 08/29/21 09:49 Urine Blood Neg (Negative) 08/29/21 09:49 Urine Nitrite Neg (Negative) 08/29/21 09:49 Urine Bilirubin Neg (Negative) 08/29/21 09:49 Urine Urobilinogen < 2.0 mg/dL (<2.0) 08/29/21 09:49 Ur Leukocyte Esterase Neg (Negative) 08/29/21 09:49 Urine WBC (Auto) 3.0 /HPF (0.0-6.0) 08/29/21 09:49 Urine RBC (Auto) 1.0 /HPF (0.0-6.0) 08/29/21 09:49 U Epithel Cells (Auto) 2.0 /HPF (0-13.0) 08/29/21 09:49 Urine Bacteria (Auto) 1+ /HPF (Negative) 08/29/21 09:49 Urine Mucus Few /HPF 08/29/21 09:49 [place]/IV: Voiding Method Toilet Active Medications - Current Medications Current Medications: Generic Name Dose Route Start Last Admin Trade Name Freq PRN Reason Stop Dose Admin Acetaminophen 650 mg 08/29/21 20:01 Acetaminophen 325 Mg Tab PO Q4H PRN Pain MILD(1-3)/Fever >100.5/GRADY Clonidine HCl 0.2 mg 09/05/21 22:00 Clonidine Tts 0.2 Mg/24 Hr Patch TD We ESTEBAN Enoxaparin Sodium 40 mg 09/01/21 10:00 Enoxaparin 40 Mg/0.4 Ml Inj SUB-Q DAILY [facility] Protocol Famotidine 20 mg 08/29/21 22:00 08/31/21 23:25 Famotidine 20 Mg/2 Ml Inj IV 20 mg BID EST[facility] Administration Hydralazine HCl 5 mg 08/30/21 14:00 Hydralazine 20 Mg/1 Ml Inj IV Q6HR PRN SBP > 160 Hydromorphone HCl 0.5 mg 08/29/21 20:01 08/31/21 23:27 Hydromorphone 1 Mg/1 Ml Inj IV 0.5 mg Q3H PRN Administration Pain , Severe (7-10) Hydromorphone HCl 0.5 mg 08/31/21 15:33 08/31/21 15:43 Hydromorphone 1 Mg/1 Ml Inj IV 09/01/21 15:32 0.5 mg Q10MIN PRN Administration Pain , Severe (7-10) Sodium Chloride 1,000 mls @ 75 mls/hr 08/29/21 21:00 09/01/21 02:39 Nacl 0.45% 1000 Ml IV 75 mls/hr DIRECT EST[facility] Administration Sodium Chloride 1,000 mls @ 50 mls/hr 08/31/21 10:00 Nacl 0.9% 1000 Ml IV 09/01/21 09:59 DIRECT ESTEBAN Insulin Glargine 15 units 08/30/21 22:00 08/31/21 23:25 Insulin Glargine 100 Units/Ml SUB-Q 15 units QHS [facility] Administration Insulin Human Lispro 0 unit 09/01/21 08:30 Insulin Lispro 100 Unit/Ml SUB-Q ACHS [facility] Protocol Lisinopril 10 mg 08/30/21 14:00 08/31/21 16:41 Lisinopril 5 Mg Tab PO 10 mg DAILY [facility] Administration Metoclopramide HCl 10 mg 08/29/21 20:01 Metoclopramide 10 Mg/2 Ml Inj IV Q6H PRN Nausea And Vomiting Metoprolol Tartrate 25 mg 08/30/21 14:00 08/31/21 16:40 Metoprolol Tartrate 25 Mg Tab PO 25 mg DAILY [facility] Administration Ondansetron HCl 4 mg 08/29/21 20:01 Ondansetron 4 Mg/2 Ml Inj IV Q8H PRN Nausea And Vomiting Ondansetron HCl 4 mg 08/31/21 15:33 Ondansetron 4 Mg/2 Ml Inj IV ONCE PRN Nausea And Vomiting Sodium Chloride 10 ml 08/29/21 22:00 08/31/21 23:26 Sodium Chloride 0.9% 10 Ml Flush Syringe IV 10 ml BID ESTEB[facility] Administration Sodium Chloride 10 ml 08/29/21 20:01 Sodium Chloride 0.9% 10 Ml Flush Syringe IV PRN PRN LINE FLUSH
[2021-09-01] MEDS: ENOXAPARIN 40 MG/0.4 ML INJ SUB-Q SCH (10:29)
[2021-09-01] MEDS: METOPROLOL TARTRATE 25 MG TAB PO SCH (10:29)
[2021-09-01] MEDS: LISINOPRIL 5 MG TAB PO SCH (10:29)
[2021-09-01] MEDS: FAMOTIDINE 20 MG/2 ML INJ IV SCH ×2 (10:29→21:39)
[2021-09-01] MEDS: HYDROmorphone 1 MG/1 ML INJ IV PRN ×2 (10:33→21:46)
[2021-09-01] MEDS: INSULIN GLARGINE 100 UNITS/ML SUB-Q SCH (21:39)
[2021-09-02 06:22] LABS: Iron 27 ug/dL (37-170); Total Iron Binding Capacity 282 mcg/dL (250-450)
[2021-09-02] MEDS: HYDROmorphone 1 MG/1 ML INJ IV PRN (07:29)
[2021-09-02] MEDS: INSULIN LISPRO 100 UNIT/ML SUB-Q SCH ×4 (09:16→22:35)
[2021-09-02] MEDS: METOPROLOL TARTRATE 25 MG TAB PO SCH (09:21)
[2021-09-02] MEDS: LISINOPRIL 5 MG TAB PO SCH (09:21)
[2021-09-02] MEDS: FAMOTIDINE 20 MG/2 ML INJ IV SCH ×2 (09:21→22:30)
[2021-09-02] MEDS: ENOXAPARIN 40 MG/0.4 ML INJ SUB-Q SCH (09:21)
--- NOTE | 2021-09-02 09:53 | Progress Note ---
Assessment and Plan Assessment and plan: A 52-year-old male history of hypertension and type 2 diabetes who presented with complaints of abdominal pain and nausea. No diarrhea, or constipation. (1) Acute abdominal pain Most likely related to colon mass, resolved Continue as needed analgesic. Continue antiemetic for nausea. GI and surgical input appreciated (2) Primary adenocarcinoma of ascending colon Patient has a mass in the ascending colon--probably adenocarcinoma Plan is for colonoscopy today by GI. CEA pending. (3) Hypertension Controlled. Continue current medication (4) Type 2 diabetes mellitus Continue coverage Accu-Cheks every 6 and moderate dose sliding scale coverage HbA1c 11.9. Continue to hold oral hypoglycemic agents. Continue Lantus 15 units subcu nightly. (5) DVT prophylaxis On and GI prophylaxis 09/01/21 Patient with colonic mass. For surgery on Friday. 09/02/21 Patient with colonic mass in ascending colon. Possibile adenocarcinoma of colon. For surgery tomorrow. History Interval history: Abdominal pain Hospitalist Physical - Physical exam Narrative exam: Gen: Not in acute distress, lying in bed,obese HEENT: Normocephalic, atraumatic Neck: supple, Lungs: Clear to auscultation bilaterally, no wheeze Heart: S1 and S2 reg, no murmurs, rubs or gallop Abd:soft, mild tender, non distended, normal bowel sounds Ext: No edema, no clubbing or cyanosis Neuro: Awake, alert, oriented X 3, moves all extremities - Constitutional Vitals: Temp Pulse Resp BP Pulse Ox 98.6 F 69 20 153/87 96 09/01/21 17:00 09/01/21 17:00 09/01/21 17:00 09/01/21 17:00 09/01/21 22:00 General appearance: Present: no acute distress, obese HEART Score - HEART Score Troponin: Troponin T < 0.010 ng/mL (0.00-0.029) 08/29/21 11:10 Results - Labs CBC & Chem 7: 08/30/21 04:46 08/30/21 04:46 Labs: Laboratory Last Values WBC 7.3 K/mm3 (4.5-11.0) 08/30/21 04:46 RBC 4.26 M/mm3 (3.65-5.03) 08/30/21 04:46 Hgb 11.1 gm/dl (10.1-14.3) 08/30/21 04:46 Hct 34.6 % (30.3-42.9) 08/30/21 04:46 MCV 81 fl (79-97) 08/30/21 04:46 MCH 26 pg (28-32) L 08/30/21 04:46 MCHC 32 % (30-34) 08/30/21 04:46 RDW 17.2 % (13.2-15.2) H 08/30/21 04:46 Plt Count 254 K/mm3 (140-440) 08/30/21 04:46 Lymph % (Auto) 42.6 % (13.4-35.0) H 08/30/21 04:46 [place] % (Auto) 5.9 % (0.0-7.3) 08/30/21 04:46 Eos % (Auto) 4.5 % (0.0-4.3) H 08/30/21 04:46 Baso % (Auto) 0.8 % (0.0-1.8) 08/30/21 04:46 Lymph # (Auto) 3.1 K/mm3 (1.2-5.4) 08/30/21 04:46 [place] # (Auto) 0.4 K/mm3 (0.0-0.8) 08/30/21 04:46 Eos # (Auto) 0.3 K/mm3 (0.0-0.4) 08/30/21 04:46 Baso # (Auto) 0.1 K/mm3 (0.0-0.1) 08/30/21 04:46 Seg Neutrophils % 46.2 % (40.0-70.0) 08/30/21 04:46 Seg Neutrophils # 3.4 K/mm3 (1.8-7.7) 08/30/21 04:46 VBG pH 7.344 (7.320-7.420) 08/29/21 11:10 Sodium 138 mmol/L (137-145) 08/30/21 04:46 Potassium 4.1 mmol/L (3.6-5.0) 08/30/21 04:46 Chloride 104.3 mmol/L (98-107) 08/30/21 04:46 Carbon Dioxide 21 mmol/L (22-30) L 08/30/21 04:46 Anion Gap 17 mmol/L 08/30/21 04:46 BUN 9 mg/dL (7-17) 08/30/21 04:46 Creatinine 0.8 mg/dL (0.6-1.2) 08/30/21 04:46 Estimated GFR > 60 ml/min 08/30/21 04:46 BUN/Creatinine Ratio 11 % 08/30/21 04:46 Glucose 218 mg/dL (65-100) H 08/30/21 04:46 POC Glucose 137 mg/dL (70-105) H 09/02/21 07:57 Hemoglobin A1c 11.9 % (4-6) H 08/30/21 04:46 Ketones Quantitative Negative (Negative) 08/29/21 11:10 Calcium 10.1 mg/dL (8.4-10.2) 08/30/21 04:46 Iron 27 ug/dL (37-170) L 09/02/21 04:49 TIBC 282 mcg/dL (250-450) 09/02/21 04:49 Total Bilirubin 0.20 mg/dL (0.1-1.2) 08/30/21 04:46 Direct Bilirubin < 0.2 mg/dL (0-0.2) 08/29/21 09:28 Indirect Bilirubin 0.0 mg/dL 08/29/21 09:28 AST 34 units/L (5-40) 08/30/21 04:46 ALT 26 units/L (7-56) 08/30/21 04:46 Alkaline Phosphatase 91 units/L (35-129) 08/30/21 04:46 Troponin T < 0.010 ng/mL (0.00-0.029) 08/29/21 11:10 Total Protein 6.5 g/dL (6.3-8.2) 08/30/21 04:46 Albumin 3.9 g/dL (3.9-5) 08/30/21 04:46 Albumin/Globulin Ratio 1.5 % 08/30/21 04:46 Lipase 50 units/L (13-60) 08/29/21 09:28 Urine Color Yellow (Yellow) 08/29/21 09:49 Urine Turbidity Clear (Clear) 08/29/21 09:49 Urine pH 5.0 (5.0-7.0) 08/29/21 09:49 Ur Specific [place] 1.017 (1.003-1.030) 08/29/21 09:49 Urine Protein <15 mg/dl mg/dL (Negative) 08/29/21 09:49 Urine Glucose (UA) >=500 mg/dL (Negative) 08/29/21 09:49 Urine Ketones Neg mg/dL (Negative) 08/29/21 09:49 Urine Blood Neg (Negative) 08/29/21 09:49 Urine Nitrite Neg (Negative) 08/29/21 09:49 Urine Bilirubin Neg (Negative) 08/29/21 09:49 Urine Urobilinogen < 2.0 mg/dL (<2.0) 08/29/21 09:49 Ur Leukocyte Esterase Neg (Negative) 08/29/21 09:49 Urine WBC (Auto) 3.0 /HPF (0.0-6.0) 08/29/21 09:49 Urine RBC (Auto) 1.0 /HPF (0.0-6.0) 08/29/21 09:49 U Epithel Cells (Auto) 2.0 /HPF (0-13.0) 08/29/21 09:49 Urine Bacteria (Auto) 1+ /HPF (Negative) 08/29/21 09:49 Urine Mucus Few /HPF 08/29/21 09:49 Coronavirus (PCR) Negative (Negative) 09/01/21 09:09 Wray/IV: Voiding Method Toilet Active Medications - Current Medications Current Medications: Generic Name Dose Route Start Last Admin Trade Name Freq PRN Reason Stop Dose Admin Acetaminophen 650 mg 08/29/21 20:01 Acetaminophen 325 Mg Tab PO Q4H PRN Pain MILD(1-3)/Fever >100.5/GRADY Clonidine HCl 0.2 mg 09/05/21 22:00 Clonidine Tts 0.2 Mg/24 Hr Patch TD We ESTEBAN Enoxaparin Sodium 40 mg 09/01/21 10:00 09/02/21 09:21 Enoxaparin 40 Mg/0.4 Ml Inj SUB-Q 40 mg DAILY ESTEBAN Administration Protocol Famotidine 20 mg 08/29/21 22:00 09/02/21 09:21 Famotidine 20 Mg/2 Ml Inj IV 20 mg BID ESTEBAN Administration Hydralazine HCl 5 mg 08/30/21 14:00 Hydralazine 20 Mg/1 Ml Inj IV Q6HR PRN SBP > 160 Hydromorphone HCl 0.5 mg 08/29/21 20:01 09/02/21 07:29 Hydromorphone 1 Mg/1 Ml Inj IV 0.5 mg Q3H PRN Administration Pain , Severe (7-10) Sodium Chloride 1,000 mls @ 75 mls/hr 08/29/21 21:00 09/01/21 21:38 Nacl 0.45% 1000 Ml IV 75 mls/hr DIRECT ESTEBAN Administration Insulin Glargine 15 units 08/30/21 22:00 09/01/21 21:39 Insulin Glargine 100 Units/Ml SUB-Q 15 units QHS ESTEBAN Administration Insulin Human Lispro 0 unit 09/01/21 08:30 09/02/21 09:16 Insulin Lispro 100 Unit/Ml SUB-Q Not Given ACHS [facility] Protocol Lisinopril 10 mg 08/30/21 14:00 09/02/21 09:21 Lisinopril 5 Mg Tab PO 10 mg DAILY ESTEBAN Administration Metoclopramide HCl 10 mg 08/29/21 20:01 Metoclopramide 10 Mg/2 Ml Inj IV Q6H PRN Nausea And Vomiting Metoprolol Tartrate 25 mg 08/30/21 14:00 09/02/21 09:21 Metoprolol Tartrate 25 Mg Tab PO 25 mg DAILY ESTEBAN Administration Ondansetron HCl 4 mg 08/29/21 20:01 Ondansetron 4 Mg/2 Ml Inj IV Q8H PRN Nausea And Vomiting Ondansetron HCl 4 mg 08/31/21 15:33 Ondansetron 4 Mg/2 Ml Inj IV ONCE PRN Nausea And Vomiting Sodium Chloride 10 ml 08/29/21 22:00 09/01/21 21:39 Sodium Chloride 0.9% 10 Ml Flush Syringe IV 10 ml BID ESTEBAN Administration Sodium Chloride 10 ml 08/29/21 20:01 Sodium Chloride 0.9% 10 Ml Flush Syringe IV PRN PRN LINE FLUSH
[2021-09-02] MEDS: SODIUM CHLORIDE 0.45% 1000 ML 1,000 ML IV SCH (13:29)
[2021-09-02] MEDS: INSULIN GLARGINE 100 UNITS/ML SUB-Q SCH (22:29)
[2021-09-03] MEDS: HYDROmorphone 1 MG/1 ML INJ IV PRN ×3 (02:56→19:54)
[2021-09-03] MEDS: SODIUM CHLORIDE 0.45% 1000 ML 1,000 ML IV SCH ×2 (03:57→21:47)
--- NOTE | 2021-09-03 09:10 | Progress Note ---
Assessment and Plan Assessment and plan: A 52-year-old with hypertension and type 2 diabetes who presented with complaints of abdominal pain and nausea. No diarrhea, or constipation. (1) Acute abdominal pain Most likely related to colon mass, Continue as needed analgesic. Continue antiemetic for nausea. GI and surgical input appreciated (2) Primary adenocarcinoma of ascending colon Patient has a mass in the ascending colon--probably adenocarcinoma Plan is for colonoscopy today by GI. CEA pending. (3) Hypertension Controlled. Continue current medication (4) Type 2 diabetes mellitus Continue coverage Accu-Cheks every 6 and moderate dose sliding scale coverage HbA1c 11.9. Continue to hold oral hypoglycemic agents. Continue Lantus 15 units subcu nightly. (5) DVT prophylaxis On and GI prophylaxis 09/01/21 Patient with colonic mass. For surgery on Friday. 09/02/21 Patient with colonic mass in ascending colon. Possible adenocarcinoma of colon. For surgery tomorrow. 09/03/21 Patient presented with abdominal pain, found to have ascending colon mass on colonoscopy. For surgery today. Hypertension, uncontrolled. Give Hydralazine iv prn in addition to scheduled Metoprolol, Lisinopril Diabetes mellitus History Interval history: Patient presented with Abdominal pain found to have colon mass Hospitalist Physical - Physical exam Narrative exam: Gen: Not in acute distress, lying in bed,obese HEENT: Normocephalic, atraumatic Neck: supple, Lungs: Clear to auscultation bilaterally, no wheeze Heart: S1 and S2 reg, no murmurs, rubs or gallop Abd:soft, mild tender, non distended, normal bowel sounds Ext: No edema, no clubbing or cyanosis Neuro: Awake, alert, oriented X 3, moves all extremities - Constitutional Vitals: Temp Pulse Resp BP Pulse Ox 98.1 F 67 18 165/83 97 09/03/21 05:34 09/03/21 05:34 09/03/21 05:34 09/03/21 05:34 09/03/21 05:34 General appearance: Present: no acute distress, obese HEART Score - HEART Score Troponin: Troponin T < 0.010 ng/mL (0.00-0.029) 08/29/21 11:10 Results - Labs CBC & Chem 7: 09/03/21 09:31 09/03/21 09:31 Labs: Laboratory Last Values WBC 7.3 K/mm3 (4.5-11.0) 08/30/21 04:46 RBC 4.26 M/mm3 (3.65-5.03) 08/30/21 04:46 Hgb 11.1 gm/dl (10.1-14.3) 08/30/21 04:46 Hct 34.6 % (30.3-42.9) 08/30/21 04:46 MCV 81 fl (79-97) 08/30/21 04:46 MCH 26 pg (28-32) L 08/30/21 04:46 MCHC 32 % (30-34) 08/30/21 04:46 RDW 17.2 % (13.2-15.2) H 08/30/21 04:46 Plt Count 254 K/mm3 (140-440) 08/30/21 04:46 Lymph % (Auto) 42.6 % (13.4-35.0) H 08/30/21 04:46 Citrus % (Auto) 5.9 % (0.0-7.3) 08/30/21 04:46 Eos % (Auto) 4.5 % (0.0-4.3) H 08/30/21 04:46 Baso % (Auto) 0.8 % (0.0-1.8) 08/30/21 04:46 Lymph # (Auto) 3.1 K/mm3 (1.2-5.4) 08/30/21 04:46 Citrus # (Auto) 0.4 K/mm3 (0.0-0.8) 08/30/21 04:46 Eos # (Auto) 0.3 K/mm3 (0.0-0.4) 08/30/21 04:46 Baso # (Auto) 0.1 K/mm3 (0.0-0.1) 08/30/21 04:46 Seg Neutrophils % 46.2 % (40.0-70.0) 08/30/21 04:46 Seg Neutrophils # 3.4 K/mm3 (1.8-7.7) 08/30/21 04:46 VBG pH 7.344 (7.320-7.420) 08/29/21 11:10 Sodium 138 mmol/L (137-145) 08/30/21 04:46 Potassium 4.1 mmol/L (3.6-5.0) 08/30/21 04:46 Chloride 104.3 mmol/L (98-107) 08/30/21 04:46 Carbon Dioxide 21 mmol/L (22-30) L 08/30/21 04:46 Anion Gap 17 mmol/L 08/30/21 04:46 BUN 9 mg/dL (7-17) 08/30/21 04:46 Creatinine 0.8 mg/dL (0.6-1.2) 08/30/21 04:46 Estimated GFR > 60 ml/min 08/30/21 04:46 BUN/Creatinine Ratio 11 % 08/30/21 04:46 Glucose 218 mg/dL (65-100) H 08/30/21 04:46 POC Glucose 107 mg/dL (70-105) H 09/03/21 07:47 Hemoglobin A1c 11.9 % (4-6) H 08/30/21 04:46 Ketones Quantitative Negative (Negative) 08/29/21 11:10 Calcium 10.1 mg/dL (8.4-10.2) 08/30/21 04:46 Iron 27 ug/dL (37-170) L 09/02/21 04:49 TIBC 282 mcg/dL (250-450) 09/02/21 04:49 Total Bilirubin 0.20 mg/dL (0.1-1.2) 08/30/21 04:46 Direct Bilirubin < 0.2 mg/dL (0-0.2) 08/29/21 09:28 Indirect Bilirubin 0.0 mg/dL 08/29/21 09:28 AST 34 units/L (5-40) 08/30/21 04:46 ALT 26 units/L (7-56) 08/30/21 04:46 Alkaline Phosphatase 91 units/L (35-129) 08/30/21 04:46 Troponin T < 0.010 ng/mL (0.00-0.029) 08/29/21 11:10 Total Protein 6.5 g/dL (6.3-8.2) 08/30/21 04:46 Albumin 3.9 g/dL (3.9-5) 08/30/21 04:46 Albumin/Globulin Ratio 1.5 % 08/30/21 04:46 Lipase 50 units/L (13-60) 08/29/21 09:28 Urine Color Yellow (Yellow) 08/29/21 09:49 Urine Turbidity Clear (Clear) 08/29/21 09:49 Urine pH 5.0 (5.0-7.0) 08/29/21 09:49 Ur Specific Bude 1.017 (1.003-1.030) 08/29/21 09:49 Urine Protein <15 mg/dl mg/dL (Negative) 08/29/21 09:49 Urine Glucose (UA) >=500 mg/dL (Negative) 08/29/21 09:49 Urine Ketones Neg mg/dL (Negative) 08/29/21 09:49 Urine Blood Neg (Negative) 08/29/21 09:49 Urine Nitrite Neg (Negative) 08/29/21 09:49 Urine Bilirubin Neg (Negative) 08/29/21 09:49 Urine Urobilinogen < 2.0 mg/dL (<2.0) 08/29/21 09:49 Ur Leukocyte Esterase Neg (Negative) 08/29/21 09:49 Urine WBC (Auto) 3.0 /HPF (0.0-6.0) 08/29/21 09:49 Urine RBC (Auto) 1.0 /HPF (0.0-6.0) 08/29/21 09:49 U Epithel Cells (Auto) 2.0 /HPF (0-13.0) 08/29/21 09:49 Urine Bacteria (Auto) 1+ /HPF (Negative) 08/29/21 09:49 Urine Mucus Few /HPF 08/29/21 09:49 Coronavirus (PCR) Negative (Negative) 09/01/21 09:09 Wray/IV: Voiding Method Toilet Active Medications - Current Medications Current Medications: Generic Name Dose Route Start Last Admin Trade Name Freq PRN Reason Stop Dose Admin Acetaminophen 650 mg 08/29/21 20:01 Acetaminophen 325 Mg Tab PO Q4H PRN Pain MILD(1-3)/Fever >100.5/GRADY Clonidine HCl 0.2 mg 09/05/21 22:00 Clonidine Tts 0.2 Mg/24 Hr Patch TD We ESTEBAN Enoxaparin Sodium 40 mg 09/01/21 10:00 09/02/21 09:21 Enoxaparin 40 Mg/0.4 Ml Inj SUB-Q 40 mg DAILY ESTEBAN Administration Protocol Famotidine 20 mg 08/29/21 22:00 09/02/21 22:30 Famotidine 20 Mg/2 Ml Inj IV 20 mg BID ESTEBAN Administration Hydralazine HCl 5 mg 08/30/21 14:00 Hydralazine 20 Mg/1 Ml Inj IV Q6HR PRN SBP > 160 Hydromorphone HCl 0.5 mg 08/29/21 20:01 09/03/21 05:54 Hydromorphone 1 Mg/1 Ml Inj IV 0.5 mg Q3H PRN Administration Pain , Severe (7-10) Sodium Chloride 1,000 mls @ 75 mls/hr 08/29/21 21:00 09/03/21 03:57 Nacl 0.45% 1000 Ml IV 75 mls/hr DIRECT ESTEBAN Administration Insulin Glargine 15 units 08/30/21 22:00 09/02/21 22:29 Insulin Glargine 100 Units/Ml SUB-Q 15 units QHS ESTEBAN Administration Insulin Human Lispro 0 unit 09/01/21 08:30 09/02/21 22:35 Insulin Lispro 100 Unit/Ml SUB-Q Not Given ACHS [facility] Protocol Lisinopril 10 mg 08/30/21 14:00 09/02/21 09:21 Lisinopril 5 Mg Tab PO 10 mg DAILY ESTEBAN Administration Metoclopramide HCl 10 mg 08/29/21 20:01 Metoclopramide 10 Mg/2 Ml Inj IV Q6H PRN Nausea And Vomiting Metoprolol Tartrate 25 mg 08/30/21 14:00 09/02/21 09:21 Metoprolol Tartrate 25 Mg Tab PO 25 mg DAILY ESTEBAN Administration Ondansetron HCl 4 mg 08/29/21 20:01 Ondansetron 4 Mg/2 Ml Inj IV Q8H PRN Nausea And Vomiting Ondansetron HCl 4 mg 08/31/21 15:33 Ondansetron 4 Mg/2 Ml Inj IV ONCE PRN Nausea And Vomiting Sodium Chloride 10 ml 08/29/21 22:00 09/02/21 22:30 Sodium Chloride 0.9% 10 Ml Flush Syringe IV 10 ml BID ESTEBAN Administration Sodium Chloride 10 ml 08/29/21 20:01 Sodium Chloride 0.9% 10 Ml Flush Syringe IV PRN PRN LINE FLUSH
[2021-09-03] MEDS: INSULIN LISPRO 100 UNIT/ML SUB-Q SCH ×4 (09:44→21:46)
[2021-09-03] MEDS: METOPROLOL TARTRATE 25 MG TAB PO SCH ×3 (09:51→21:44)
[2021-09-03] MEDS: FAMOTIDINE 20 MG/2 ML INJ IV SCH ×2 (09:51→21:43)
[2021-09-03] MEDS: LISINOPRIL 5 MG TAB PO SCH (09:51)
[2021-09-03] MEDS: ENOXAPARIN 40 MG/0.4 ML INJ SUB-Q SCH (09:52)
[2021-09-03 09:53] LABS: Hematocrit 34.2 % (30.3-42.9); Hemoglobin 11.1 gm/dl (10.1-14.3); Mean Corpuscular HGB Conc 32 % (30-34); Mean Corpuscular Volume 82 fl (79-97); Platelet Count 247 K/mm3 (140-440); Red Blood Count 4.18 M/mm3 (3.65-5.03); Red Cell Distribution Width 17.3 % (13.2-15.2)
[2021-09-03 10:13] LABS: BUN/Creatinine Ratio 6; Blood Urea Nitrogen 5 mg/dL (7-17); Calcium 10.1 mg/dL (8.4-10.2); Hemolysis Index 5
--- NOTE | 2021-09-03 11:30 | Consultation ---
History of Present Illness Consult date: 09/03/21 Consult reason: pre op evaluation History of present illness: The patient is a 56-year-old woman admitted to the hospital with abdominal pain, nausea and vomiting. GI endoscopy has revealed an ascending colon mass suspicious for cancer. She has been recommended for a right hemicolectomy. In preparation for the surgery, a cardiac preoperative assessment was requested. The patient has an extensive cardiac history. In November 2017, when she lived in [place], she suffered a myocardial infarction, followed by placement of a 3.0 x 30 mm drug-eluting stent in the LAD. She relocated to the [facility] about a year ago, but admits to no cardiac follow-up during her time here in [place]. She has had no significant cardiac re-evaluation since her stent procedure in 2017, and has been poorly compliant with standard guideline directed medical therapy. Nevertheless, no cardiac symptoms, she has had no chest pain, no shortness of breath, no palpitations, no lower extremity edema. Comorbidities include diabetes and hypertension. She reports no regular exercise regimen. EKG on this presentation is a sinus rhythm, left ventricular hypertrophy by voltage criteria, otherwise normal ECG. Chest x-ray reveals a normal-sized cardiac silhouette and clear lungs. Past History Past Medical History: CAD, diabetes, hypertension Past Surgical History: PTCA Social history: no significant social history Family history: cancer (ovarian - mother), diabetes, hypertension Medications and Allergies Allergies Allergy/AdvReac Type Severity Reaction Status Date / Time No Known Allergies Allergy Verified 08/31/21 00:24 Home Medications Medication Instructions Recorded Confirmed Last Taken Type Lisinopril [Zestril] 10 mg PO DAILY 09/26/20 08/31/21 08/29/21 08:00 History 10 mg Metoprolol [Lopressor] 25 mg PO DAILY 09/26/20 08/31/21 08/29/21 08:00 History 25 mg glipiZIDE [Glucotrol] 10 mg PO QDAY 09/26/20 08/31/21 08/29/21 08:00 History 10 mg metFORMIN [Glucophage] 1,000 mg PO QDAY 09/26/20 08/31/21 08/29/21 08:00 History 1000 mg Gabapentin 300 mg PO DAILY 08/31/21 08/31/21 08/27/21 21:00 History 300 Pantoprazole [Protonix TAB] 40 mg PO BID 08/31/21 08/31/21 08/29/21 08:00 History 40 mg Active Meds: Active Medications Acetaminophen (Acetaminophen 325 Mg Tab) 650 mg PO Q4H PRN PRN Reason: Pain MILD(1-3)/Fever >100.5/GRADY Clonidine HCl (Clonidine Tts 0.2 Mg/24 Hr Patch) 0.2 mg TD We [facility] Enoxaparin Sodium (Enoxaparin 40 Mg/0.4 Ml Inj) 40 mg SUB-Q DAILY [facility]; Protocol Last Admin: 09/03/21 09:52 Dose: Not Given Documented by: Famotidine (Famotidine 20 Mg/2 Ml Inj) 20 mg IV BID [facility] Last Admin: 09/03/21 09:51 Dose: 20 mg Documented by: Hydralazine HCl (Hydralazine 20 Mg/1 Ml Inj) 10 mg IV Q4HR PRN PRN Reason: SBP>160 or DBP>110 Hydromorphone HCl (Hydromorphone 1 Mg/1 Ml Inj) 0.5 mg IV Q3H PRN PRN Reason: Pain , Severe (7-10) Last Admin: 09/03/21 05:54 Dose: 0.5 mg Documented by: Sodium Chloride (Nacl 0.45% 1000 Ml) 1,000 mls @ 75 mls/hr IV DIRECT [facility] Last Admin: 09/03/21 03:57 Dose: 75 mls/hr Documented by: Insulin Glargine (Insulin Glargine 100 Units/Ml) 15 units SUB-Q QHS [facility] Last Admin: 09/02/21 22:29 Dose: 15 units Documented by: Insulin Human Lispro (Insulin Lispro 100 Unit/Ml) 0 unit SUB-Q ACHS [facility]; Protocol Last Admin: 09/03/21 09:44 Dose: Not Given Documented by: Lisinopril (Lisinopril 5 Mg Tab) 10 mg PO DAILY [facility] Last Admin: 09/03/21 09:51 Dose: 10 mg Documented by: Metoclopramide HCl (Metoclopramide 10 Mg/2 Ml Inj) 10 mg IV Q6H PRN PRN Reason: Nausea And Vomiting Metoprolol Tartrate (Metoprolol Tartrate 25 Mg Tab) 25 mg PO DAILY [facility] Last Admin: 09/03/21 09:51 Dose: 25 mg Documented by: Ondansetron HCl (Ondansetron 4 Mg/2 Ml Inj) 4 mg IV Q8H PRN PRN Reason: Nausea And Vomiting Ondansetron HCl (Ondansetron 4 Mg/2 Ml Inj) 4 mg IV ONCE PRN PRN Reason: Nausea And Vomiting Sodium Chloride (Sodium Chloride 0.9% 10 Ml Flush Syringe) 10 ml IV BID ESTEBAN Last Admin: 09/03/21 09:52 Dose: 10 ml Documented by: Sodium Chloride (Sodium Chloride 0.9% 10 Ml Flush Syringe) 10 ml IV PRN PRN PRN Reason: LINE FLUSH Review of Systems Cardiovascular: no chest pain, no orthopnea, no palpitations, no rapid/irregular heart beat, no edema, no syncope, no lightheadedness, no shortness of breath Physical Examination Vital Signs Temp Pulse Resp BP Pulse Ox 98.2 F 88 18 172/83 99 08/29/21 08:45 08/29/21 08:45 08/29/21 08:45 08/29/21 08:45 08/29/21 08:45 General appearance: no acute distress HEENT: Positive: PERRL Neck: Positive: neck supple Cardiac: Positive: Reg Rate and Rhythm Lungs: Positive: clear to auscultation Neuro: Positive: Grossly Intact Abdomen: Positive: Soft Female genitourinary: deferred Skin: Positive: Clear Extremities: Absent: edema Results 09/03/21 09:31 09/03/21 09:31 CBC 09/03/21 Range/Units 09:31 WBC 5.7 (4.5-11.0) K/mm3 RBC 4.18 (3.65-5.03) M/mm3 Hgb 11.1 (10.1-14.3) gm/dl Hct 34.2 (30.3-42.9) % Plt Count 247 (140-440) K/mm3 Comprehensive Metabolic Panel 09/03/21 Range/Units 09:31 Sodium 142 (137-145) mmol/L Potassium 3.9 (3.6-5.0) mmol/L Chloride 107.2 H (98-107) mmol/L Carbon Dioxide 23 (22-30) mmol/L BUN 5 L (7-17) mg/dL Creatinine 0.9 (0.6-1.2) mg/dL Glucose 125 H (65-100) mg/dL Calcium 10.1 (8.4-10.2) mg/dL EKG interpretations - Telemetry EKG Rhythm: Sinus Rhythm Assessment and Plan - Patient Problems (1) Pre-op evaluation Current Visit: Yes Status: Acute Plan to address problem: Patient admitted with abdominal pain, found with a colon mass in the ascending colon, preop for exploratory laparotomy and right hemicolectomy. She has a history of coronary artery disease and coronary stenting of the LAD in 2018, diabetes and hypertension. We will order an exercise thallium stress test for further cardiac preoperative assessment.
--- NOTE | 2021-09-03 13:25 | Progress Note ---
Assessment and Plan 56 yo F with abdominal pain, ascending colon mass cscope 08/31/21 - Ulcerated, partially obstructing, large, circumfrential mass in the ascending colon measuring 6 cm. Plan: 1. continue CLD only -> do not advance 2. CEA pending 3. prn pain control 4. DVT ppx 5. Oncology note reviewed 6. cards consult noted - stress test recommended. Spoke with NM and will be done tomorrow am. NPO p MN tonight 6. Recommend right hemicolectomy. I discussed the colonoscopy findings with the patient and the recommended surgical treatment. Explained to the patient the procedure in detail along with risks, benefits, alternatives to surgery. All questions answered and patient is agreeable to proceed with surgery. Consent obtained. 7. Surgery later this week depending on OR availability and stress test results Evaluation and treatment of this patient was during the time of the national and state emergency arising from COVID19 coronavirus pandemic. Treatment and procedures performed meet the current and available best practice and guidelines for patient during the COVID pandemic. Subjective Date of service: 09/03/21 Narrative: Patient seen and examined. No acute complaints. No overnight events. Objective Vital Signs - 12hr 09/03/21 09/03/21 05:34 09:50 Temperature 98.1 F Pulse Rate 67 73 Respiratory 18 20 Rate Blood Pressure 165/83 Blood Pressure 131/80 [Right] O2 Sat by Pulse 97 99 Oximetry - General physical appearance Narrative Exam: Gen.: Awake, alert, oriented x3. No apparent distress ENT: Trachea midline. No lymphadenopathy. No scleral icterus or conjunctival pallor CV: S1, S2 present Respiratory: No audible wheezes Abdomen: Soft, nondistended, nontender. No rebound, rigidity, guarding Extremities: No clubbing, cyanosis, edema - Labs 09/03/21 09:31 09/03/21 09:31 Diabetes panel 09/03/21 Range/Units 09:31 Sodium 142 (137-145) mmol/L Potassium 3.9 (3.6-5.0) mmol/L Chloride 107.2 H (98-107) mmol/L Carbon Dioxide 23 (22-30) mmol/L BUN 5 L (7-17) mg/dL Creatinine 0.9 (0.6-1.2) mg/dL Glucose 125 H (65-100) mg/dL Calcium 10.1 (8.4-10.2) mg/dL Calcium panel 09/03/21 Range/Units 09:31 Calcium 10.1 (8.4-10.2) mg/dL Pituitary panel 09/03/21 Range/Units 09:31 Sodium 142 (137-145) mmol/L Potassium 3.9 (3.6-5.0) mmol/L Chloride 107.2 H (98-107) mmol/L Carbon Dioxide 23 (22-30) mmol/L BUN 5 L (7-17) mg/dL Creatinine 0.9 (0.6-1.2) mg/dL Glucose 125 H (65-100) mg/dL Calcium 10.1 (8.4-10.2) mg/dL Adrenal panel 09/03/21 Range/Units 09:31 Sodium 142 (137-145) mmol/L Potassium 3.9 (3.6-5.0) mmol/L Chloride 107.2 H (98-107) mmol/L Carbon Dioxide 23 (22-30) mmol/L BUN 5 L (7-17) mg/dL Creatinine 0.9 (0.6-1.2) mg/dL Glucose 125 H (65-100) mg/dL Calcium 10.1 (8.4-10.2) mg/dL
--- NOTE | 2021-09-03 14:06 | Event Note ---
Date: 09/03/21 For stress test in am. Surgery postponed till after stress test.
[2021-09-03] MEDS: ASPIRIN EC 81 MG TAB PO SCH (15:47)
[2021-09-03] MEDS: INSULIN GLARGINE 100 UNITS/ML SUB-Q SCH (21:45)
[2021-09-04] MEDS: HYDROmorphone 1 MG/1 ML INJ IV PRN (04:20)
[2021-09-04] MEDS: hydrALAZINE 20 MG/1 ML INJ IV PRN (05:08)
[2021-09-04] MEDS: METOPROLOL TARTRATE 25 MG TAB PO SCH ×3 (05:09→21:30)
[2021-09-04] MEDS: INSULIN LISPRO 100 UNIT/ML SUB-Q SCH ×4 (07:30→21:30)
[2021-09-04 08:08] LABS: Hematocrit 36.2 % (30.3-42.9); Hemoglobin 11.4 gm/dl (10.1-14.3); Mean Corpuscular HGB Conc 32 % (30-34); Mean Corpuscular Volume 81 fl (79-97); Platelet Count 305 K/mm3 (140-440); Red Blood Count 4.45 M/mm3 (3.65-5.03); Red Cell Distribution Width 17.2 % (13.2-15.2)
[2021-09-04 08:43] LABS: BUN/Creatinine Ratio 9; Blood Urea Nitrogen 7 mg/dL (7-17); Hemolysis Index 1
--- NOTE | 2021-09-04 09:13 | Progress Note ---
<MAILE ABREU - Last Filed: 09/04/21 09:17> Assessment and Plan Abdominal pain with nausea and vomiting. GI endoscopy has revealed an ascending colon mass suspicious for cancer Preoperative cardiac assessment for right hemicolectomy History of Myocardial infarction in 2018 s/p PCI of the LAD using LAMIN Noncompliant with medications and outpatient cardiac follow up Diabetes Hypertension Exercise thallium stress test for further cardiac preoperative assessment. Results are pending. Subjective Date of service: 09/04/21 Interval history: For stress thallium test today. Objective Vital Signs Temp Pulse Resp BP BP Pulse Ox 09/04/21 05:09 61 173/87 09/04/21 05:08 61 173/87 09/04/21 03:59 98.1 F 61 16 173/87 98 09/03/21 22:00 68 L 09/03/21 21:44 68 169/71 09/03/21 21:17 98.5 F 68 16 169/71 97 09/03/21 18:05 98.2 F 64 20 150/78 97 09/03/21 15:46 71 134/64 09/03/21 13:41 98.7 F 73 16 154/67 98 09/03/21 10:45 100 09/03/21 09:50 73 20 131/80 99 - Physical Examination General: No Apparent Distress HEENT: Positive: PERRL Neck: Positive: neck supple Cardiac: Positive: Reg Rate and Rhythm Neuro: Positive: Grossly Intact Abdomen: Positive: Soft Skin: Positive: Clear Extremities: Absent: edema - Labs and Meds CBC 09/03/21 09/04/21 Range/Units 09:31 07:22 WBC 5.7 5.9 (4.5-11.0) K/mm3 RBC 4.18 4.45 (3.65-5.03) M/mm3 Hgb 11.1 11.4 (10.1-14.3) gm/dl Hct 34.2 36.2 (30.3-42.9) % Plt Count 247 305 (140-440) K/mm3 Comprehensive Metabolic Panel 09/03/21 09/04/21 Range/Units 09:31 07:22 Sodium 142 138 (137-145) mmol/L Potassium 3.9 3.6 (3.6-5.0) mmol/L Chloride 107.2 H 102.3 (98-107) mmol/L Carbon Dioxide 23 22 (22-30) mmol/L BUN 5 L 7 (7-17) mg/dL Creatinine 0.9 0.8 (0.6-1.2) mg/dL Glucose 125 H 161 H (65-100) mg/dL Calcium 10.1 10.0 (8.4-10.2) mg/dL <PRIMITIVO GOLD - Last Filed: 09/09/21 17:52> Subjective Interval history: I SAW THIS PT & AGREE WITH THE Dx & Tx PLAN.
--- NOTE | 2021-09-04 09:28 | Progress Note ---
Assessment and Plan Assessment and plan: A 52-year-old with hypertension and type 2 diabetes who presented with complaints of abdominal pain and nausea. No diarrhea, or constipation. The patient was admitted with diagnosis of acute abdominal pain. CT scan completed on 08/29 revealed findings concerning for adenocarcinoma of the ascending colon. Colonoscopy revealed ulcerated, partially obstructing, large, circumfrential mass in the ascending colon measuring 6 cm. Acute abdominal pain Probable primary adenocarcinoma of ascending colon. Hypertension Diabetes mellitus type 2 DVT prophylaxis 09/01/21 Patient with colonic mass. For surgery on Friday. 09/02/21 Patient with colonic mass in ascending colon. Possible adenocarcinoma of colon. For surgery tomorrow. 09/03/21 Patient presented with abdominal pain, found to have ascending colon mass on colonoscopy. For surgery today. Hypertension, uncontrolled. Give Hydralazine iv prn in addition to scheduled Metoprolol, Lisinopril Diabetes mellitus 09/04/2021. Patient for preoperative evaluation with stress test today. Follow-up [facility]. Continue pain control. Surgery to perform right hemicolectomy later this week. History Interval history: No new issues overnight. Hospitalist Physical - Constitutional Vitals: Temp Pulse Resp BP Pulse Ox 98.1 F 61 16 173/87 98 09/04/21 03:59 09/04/21 05:09 09/04/21 03:59 09/04/21 05:09 09/04/21 03:59 General appearance: Present: no acute distress, obese - EENT Eyes: Present: PERRL, EOM intact ENT: hearing intact, clear oral mucosa, dentition normal - Neck Neck: Present: supple, normal ROM - Respiratory Respiratory effort: normal Respiratory: bilateral: CTA - Cardiovascular Rhythm: regular Heart Sounds: Present: S1 & S2. Absent: gallop, rub - Extremities Extremities: no ischemia, No edema, Full ROM - Abdominal General gastrointestinal: soft, non-tender, non-distended, normal bowel sounds - Integumentary Integumentary: Present: clear, warm, dry - Neurologic Neurologic: CNII-XII intact, moves all extremities HEART Score - HEART Score Troponin: Troponin T < 0.010 ng/mL (0.00-0.029) 08/29/21 11:10 Results - Labs CBC & Chem 7: 09/04/21 07:22 09/04/21 07:22 Labs: Laboratory Last Values WBC 5.9 K/mm3 (4.5-11.0) 09/04/21 07:22 RBC 4.45 M/mm3 (3.65-5.03) 09/04/21 07:22 Hgb 11.4 gm/dl (10.1-14.3) 09/04/21 07:22 Hct 36.2 % (30.3-42.9) 09/04/21 07:22 MCV 81 fl (79-97) 09/04/21 07:22 MCH 26 pg (28-32) L 09/04/21 07:22 MCHC 32 % (30-34) 09/04/21 07: RDW 17.2 % (13.2-15.2) H 09/04/21 07:22 Plt Count 305 K/mm3 (140-440) 09/04/21 07:22 Lymph % (Auto) 42.6 % (13.4-35.0) H 08/30/21 04:46 [place] % (Auto) 5.9 % (0.0-7.3) 08/30/21 04:46 Eos % (Auto) 4.5 % (0.0-4.3) H 08/30/21 04:46 Baso % (Auto) 0.8 % (0.0-1.8) 08/30/21 04:46 Lymph # (Auto) 3.1 K/mm3 (1.2-5.4) 08/30/21 04:46 [place] # (Auto) 0.4 K/mm3 (0.0-0.8) 08/30/21 04:46 Eos # (Auto) 0.3 K/mm3 (0.0-0.4) 08/30/21 04:46 Baso # (Auto) 0.1 K/mm3 (0.0-0.1) 08/30/21 04:46 Seg Neutrophils % 46.2 % (40.0-70.0) 08/30/21 04:46 Seg Neutrophils # 3.4 K/mm3 (1.8-7.7) 08/30/21 04:46 VBG pH 7.344 (7.320-7.420) 08/29/21 11:10 Sodium 138 mmol/L (137-145) 09/04/21 07:22 Potassium 3.6 mmol/L (3.6-5.0) 09/04/21 07:22 Chloride 102.3 mmol/L (98-107) 09/04/21 07:22 Carbon Dioxide 22 mmol/L (22-30) 09/04/21 07:22 Anion Gap 17 mmol/L 09/04/21 07:22 BUN 7 mg/dL (7-17) 09/04/21 07:22 Creatinine 0.8 mg/dL (0.6-1.2) 09/04/21 07:22 Estimated GFR > 60 ml/min 09/04/21 07:22 BUN/Creatinine Ratio 9 % 09/04/21 07:22 Glucose 161 mg/dL (65-100) H 09/04/21 07:22 POC Glucose 153 mg/dL (70-105) H 09/04/21 08:14 Hemoglobin A1c 11.9 % (4-6) H 08/30/21 04:46 Ketones Quantitative Negative (Negative) 08/29/21 11:10 Calcium 10.0 mg/dL (8.4-10.2) 09/04/21 07:22 Iron 27 ug/dL (37-170) L 09/02/21 04:49 TIBC 282 mcg/dL (250-450) 09/02/21 04:49 Total Bilirubin 0.20 mg/dL (0.1-1.2) 08/30/21 04:46 Direct Bilirubin < 0.2 mg/dL (0-0.2) 08/29/21 09:28 Indirect Bilirubin 0.0 mg/dL 08/29/21 09:28 AST 34 units/L (5-40) 08/30/21 04:46 ALT 26 units/L (7-56) 08/30/21 04:46 Alkaline Phosphatase 91 units/L (35-129) 08/30/21 04:46 Troponin T < 0.010 ng/mL (0.00-0.029) 08/29/21 11:10 Total Protein 6.5 g/dL (6.3-8.2) 08/30/21 04:46 Albumin 3.9 g/dL (3.9-5) 08/30/21 04:46 Albumin/Globulin Ratio 1.5 % 08/30/21 04:46 Lipase 50 units/L (13-60) 08/29/21 09:28 Urine Color Yellow (Yellow) 08/29/21 09:49 Urine Turbidity Clear (Clear) 08/29/21 09:49 Urine pH 5.0 (5.0-7.0) 08/29/21 09:49 Ur Specific [place] 1.017 (1.003-1.030) 08/29/21 09:49 Urine Protein <15 mg/dl mg/dL (Negative) 08/29/21 09:49 Urine Glucose (UA) >=500 mg/dL (Negative) 08/29/21 09:49 Urine Ketones Neg mg/dL (Negative) 08/29/21 09:49 Urine Blood Neg (Negative) 08/29/21 09:49 Urine Nitrite Neg (Negative) 08/29/21 09:49 Urine Bilirubin Neg (Negative) 08/29/21 09:49 Urine Urobilinogen < 2.0 mg/dL (<2.0) 08/29/21 09:49 Ur Leukocyte Esterase Neg (Negative) 08/29/21 09:49 Urine WBC (Auto) 3.0 /HPF (0.0-6.0) 08/29/21 09:49 Urine RBC (Auto) 1.0 /HPF (0.0-6.0) 08/29/21 09:49 U Epithel Cells (Auto) 2.0 /HPF (0-13.0) 08/29/21 09:49 Urine Bacteria (Auto) 1+ /HPF (Negative) 08/29/21 09:49 Urine Mucus Few /HPF 08/29/21 09:49 Coronavirus (PCR) Negative (Negative) 09/01/21 09:09 Blood Type O POSITIVE 09/03/21 09:33 Antibody Screen Negative 09/03/21 09:33 Wray/IV: Voiding Method Toilet Active Medications - Current Medications Current Medications: Generic Name Dose Route Start Last Admin Trade Name Freq PRN Reason Stop Dose Admin Acetaminophen 650 mg 08/29/21 20:01 Acetaminophen 325 Mg Tab PO Q4H PRN Pain MILD(1-3)/Fever >100.5/GRADY Aspirin 81 mg 09/03/21 13:00 09/03/21 15:47 Aspirin Ec 81 Mg Tab PO 81 mg QDAY ESTEBAN Administration Atorvastatin Calcium 40 mg 09/03/21 22:00 09/03/21 21:43 Atorvastatin 40 Mg Tab PO 40 mg QHS ESTEBAN Administration Clonidine HCl 0.2 mg 09/05/21 22:00 Clonidine Tts 0.2 Mg/24 Hr Patch TD We ESTEBAN Enoxaparin Sodium 40 mg 09/01/21 10:00 09/03/21 09:52 Enoxaparin 40 Mg/0.4 Ml Inj SUB-Q Not Given DAILY [facility] Protocol Famotidine 20 mg 08/29/21 22:00 09/03/21 21:43 Famotidine 20 Mg/2 Ml Inj IV 20 mg BID ESTEBAN Administration Hydralazine HCl 10 mg 09/03/21 09:12 09/04/21 05:08 Hydralazine 20 Mg/1 Ml Inj IV 10 mg Q4HR PRN Administration SBP>160 or DBP>110 Hydromorphone HCl 0.5 mg 08/29/21 20:01 09/03/21 19:54 Hydromorphone 1 Mg/1 Ml Inj IV 0.5 mg Q3H PRN Administration Pain , Severe (7-10) Sodium Chloride 1,000 mls @ 75 mls/hr 09/03/21 21:15 09/03/21 21:47 Nacl 0.45% 1000 Ml IV 75 mls/hr DIRECT ESTEBAN Administration Insulin Glargine 15 units 08/30/21 22:00 09/03/21 21:45 Insulin Glargine 100 Units/Ml SUB-Q 15 units QHS ESTEBAN Administration Insulin Human Lispro 0 unit 09/01/21 08:30 09/03/21 21:46 Insulin Lispro 100 Unit/Ml SUB-Q Not Given ACHS [facility] Protocol Lisinopril 10 mg 08/30/21 14:00 09/03/21 09:51 Lisinopril 5 Mg Tab PO 10 mg DAILY ESTEBAN Administration Metoclopramide HCl 10 mg 08/29/21 20:01 Metoclopramide 10 Mg/2 Ml Inj IV Q6H PRN Nausea And Vomiting Metoprolol Tartrate 25 mg 09/03/21 13:00 09/04/21 05:09 Metoprolol Tartrate 25 Mg Tab PO 25 mg Q8H ESTEBAN Administration Ondansetron HCl 4 mg 08/29/21 20:01 Ondansetron 4 Mg/2 Ml Inj IV Q8H PRN Nausea And Vomiting Ondansetron HCl 4 mg 08/31/21 15:33 Ondansetron 4 Mg/2 Ml Inj IV ONCE PRN Nausea And Vomiting Sodium Chloride 10 ml 08/29/21 22:00 09/03/21 21:45 Sodium Chloride 0.9% 10 Ml Flush Syringe IV 10 ml BID ESTEBAN Administration Sodium Chloride 10 ml 08/29/21 20:01 Sodium Chloride 0.9% 10 Ml Flush Syringe IV PRN PRN LINE FLUSH
[2021-09-04] MEDS: FAMOTIDINE 20 MG/2 ML INJ IV SCH ×2 (10:05→21:28)
[2021-09-04] MEDS: ASPIRIN EC 81 MG TAB PO SCH (11:24)
[2021-09-04] MEDS: ENOXAPARIN 40 MG/0.4 ML INJ SUB-Q SCH (11:26)
[2021-09-04] MEDS: LISINOPRIL 5 MG TAB PO SCH (11:29)
[2021-09-04] MEDS: ACETAMINOPHEN 325 MG TAB PO PRN (14:31)
[2021-09-04] MEDS: SODIUM CHLORIDE 0.45% 1000 ML 1,000 ML IV SCH (16:58)
--- NOTE | 2021-09-04 17:28 | Treadmill Report ---
DATE OF SERVICE: 09/04/2021 STRESS TEST The patient was exercised according to the [facility] protocol and achieved 100% of her predicted maximal heart rate by exercising for 6 minutes and 50 seconds. There was no chest pain. There was lateral horizontal ST depression 1-2 mm. The resting blood pressure was elevated at 199/88. The blood pressure response was hypertensive with a peak blood pressure of 205/110. One ventricular couplet was noted during the procedure. ASSESSMENT: 1. Uncontrolled hypertension. 2. Lateral ST depression suggestive of ischemia without angina. 3. Nuclear images are pending. TID: [id number] RECEIPT: [id number] BHARGAVI/EDISON/RASHAAD
[2021-09-04] MEDS: INSULIN GLARGINE 100 UNITS/ML SUB-Q SCH ×2 (21:30)
[2021-09-05] MEDS: METOPROLOL TARTRATE 25 MG TAB PO SCH ×3 (05:47→22:04)
[2021-09-05] MEDS: SODIUM CHLORIDE 0.45% 1000 ML 1,000 ML IV SCH (05:52)
[2021-09-05 06:23] LABS: Basophils # (Auto) 0.1 K/mm3 (0.0-0.1); Eosinophils # (Auto) 0.3 K/mm3 (0.0-0.4); Hematocrit 35.3 % (30.3-42.9); Hemoglobin 11.6 gm/dl (10.1-14.3); Lymphocytes # (Auto) 2.6 K/mm3 (1.2-5.4); Lymphocytes % (Auto) 45.2 % (13.4-35.0); Mean Corpuscular HGB Conc 33 % (30-34); Mean Corpuscular Volume 82 fl (79-97); Monocytes # (Auto) 0.6 K/mm3 (0.0-0.8); Monocytes % (Auto) 10.3 % (0.0-7.3); Platelet Count 299 K/mm3 (140-440); Red Blood Count 4.33 M/mm3 (3.65-5.03); Red Cell Distribution Width 17.5 % (13.2-15.2)
[2021-09-05 06:43] LABS: BUN/Creatinine Ratio 10; Blood Urea Nitrogen 8 mg/dL (7-17); Calcium 9.9 mg/dL (8.4-10.2); Hemolysis Index 6
[2021-09-05] MEDS: INSULIN LISPRO 100 UNIT/ML SUB-Q SCH ×4 (07:30→22:12)
--- NOTE | 2021-09-05 09:19 | Progress Note ---
Assessment and Plan Assessment and plan: A 52-year-old with hypertension and type 2 diabetes who presented with complaints of abdominal pain and nausea. No diarrhea, or constipation. The patient was admitted with diagnosis of acute abdominal pain. CT scan completed on 08/29 revealed findings concerning for adenocarcinoma of the ascending colon. Colonoscopy revealed ulcerated, partially obstructing, large, circumfrential mass in the ascending colon measuring 6 cm. Acute abdominal pain Probable primary adenocarcinoma of ascending colon. Hypertension Diabetes mellitus type 2 DVT prophylaxis 09/01/21 Patient with colonic mass. For surgery on Friday. 09/02/21 Patient with colonic mass in ascending colon. Possible adenocarcinoma of colon. For surgery tomorrow. 09/03/21 Patient presented with abdominal pain, found to have ascending colon mass on colonoscopy. For surgery today. Hypertension, uncontrolled. Give Hydralazine iv prn in addition to scheduled Metoprolol, Lisinopril Diabetes mellitus 09/04/2021. Patient for preoperative evaluation with stress test today. Follow-up [facility]. Continue pain control. Surgery to perform right hemicolectomy later this week. 09/05/2021. Patient with stress test yesterday that revealed small area of ischemia but cardiology recommended medical therapy. Cardiology cleared for surgery but patient is considered moderate risk. Patient is to undergo right colectomy today. Continue supportive care History Interval history: No new issues overnight. Hospitalist Physical - Constitutional Vitals: Temp Pulse Resp BP Pulse Ox 98.7 F 67 20 141/82 98 09/05/21 05:10 09/05/21 05:47 09/05/21 05:10 09/05/21 05:47 09/05/21 05:10 General appearance: Present: no acute distress, obese - EENT Eyes: Present: PERRL, EOM intact ENT: hearing intact, clear oral mucosa, dentition normal - Neck Neck: Present: supple, normal ROM - Respiratory Respiratory effort: normal Respiratory: bilateral: CTA - Cardiovascular Rhythm: regular Heart Sounds: Present: S1 & S2. Absent: gallop, rub - Extremities Extremities: no ischemia, No edema, Full ROM - Abdominal General gastrointestinal: soft, non-tender, non-distended, normal bowel sounds - Integumentary Integumentary: Present: clear, warm, dry - Neurologic Neurologic: CNII-XII intact, moves all extremities HEART Score - HEART Score Troponin: Troponin T < 0.010 ng/mL (0.00-0.029) 08/29/21 11:10 Results - Labs CBC & Chem 7: 09/05/21 05:50 09/05/21 05:50 Labs: Laboratory Last Values WBC 5.7 K/mm3 (4.5-11.0) 09/05/21 05:50 RBC 4.33 M/mm3 (3.65-5.03) 09/05/21 05:50 Hgb 11.6 gm/dl (10.1-14.3) 09/05/21 05:50 Hct 35.3 % (30.3-42.9) 09/05/21 05:50 MCV 82 fl (79-97) 09/05/21 05:50 MCH 27 pg (28-32) L 09/05/21 05:50 MCHC 33 % (30-34) 09/05/21 05:50 RDW 17.5 % (13.2-15.2) H 09/05/21 05:50 Plt Count 299 K/mm3 (140-440) 09/05/21 05:50 Lymph % (Auto) 45.2 % (13.4-35.0) H 09/05/21 05:50 [place] % (Auto) 10.3 % (0.0-7.3) H 09/05/21 05:50 Eos % (Auto) 6.0 % (0.0-4.3) H 09/05/21 05:50 Baso % (Auto) 1.0 % (0.0-1.8) 09/05/21 05:50 Lymph # (Auto) 2.6 K/mm3 (1.2-5.4) 09/05/21 05:50 [place] # (Auto) 0.6 K/mm3 (0.0-0.8) 09/05/21 05:50 Eos # (Auto) 0.3 K/mm3 (0.0-0.4) 09/05/21 05:50 Baso # (Auto) 0.1 K/mm3 (0.0-0.1) 09/05/21 05:50 Seg Neutrophils % 37.5 % (40.0-70.0) L 09/05/21 05:50 Seg Neutrophils # 2.1 K/mm3 (1.8-7.7) 09/05/21 05:50 VBG pH 7.344 (7.320-7.420) 08/29/21 11:10 Sodium 144 mmol/L (137-145) 09/05/21 05:50 Potassium 4.4 mmol/L (3.6-5.0) D 09/05/21 05:50 Chloride 86.0 mmol/L (98-107) L 09/05/21 05:50 Carbon Dioxide 24 mmol/L (22-30) 09/05/21 05:50 Anion Gap 38 mmol/L 09/05/21 05:50 BUN 8 mg/dL (7-17) 09/05/21 05:50 Creatinine 0.8 mg/dL (0.6-1.2) 09/05/21 05:50 Estimated GFR > 60 ml/min 09/05/21 05:50 BUN/Creatinine Ratio 10 % 09/05/21 05:50 Glucose 172 mg/dL (65-100) H 09/05/21 05:50 POC Glucose 176 mg/dL (70-105) H 09/05/21 07:50 Hemoglobin A1c 11.9 % (4-6) H 08/30/21 04:46 Ketones Quantitative Negative (Negative) 08/29/21 11:10 Calcium 9.9 mg/dL (8.4-10.2) 09/05/21 05:50 Iron 27 ug/dL (37-170) L 09/02/21 04:49 TIBC 282 mcg/dL (250-450) 09/02/21 04:49 Total Bilirubin 0.20 mg/dL (0.1-1.2) 08/30/21 04:46 Direct Bilirubin < 0.2 mg/dL (0-0.2) 08/29/21 09:28 Indirect Bilirubin 0.0 mg/dL 08/29/21 09:28 AST 34 units/L (5-40) 08/30/21 04:46 ALT 26 units/L (7-56) 08/30/21 04:46 Alkaline Phosphatase 91 units/L (35-129) 08/30/21 04:46 Troponin T < 0.010 ng/mL (0.00-0.029) 08/29/21 11:10 Total Protein 6.5 g/dL (6.3-8.2) 08/30/21 04:46 Albumin 3.9 g/dL (3.9-5) 08/30/21 04:46 Albumin/Globulin Ratio 1.5 % 08/30/21 04:46 Lipase 50 units/L (13-60) 08/29/21 09:28 Carcinoembryonic Ag 11.3 ng/mL (0.0-2.4) H 08/31/21 07:30 Urine Color Yellow (Yellow) 08/29/21 09:49 Urine Turbidity Clear (Clear) 08/29/21 09:49 Urine pH 5.0 (5.0-7.0) 08/29/21 09:49 Ur Specific [place] 1.017 (1.003-1.030) 08/29/21 09:49 Urine Protein <15 mg/dl mg/dL (Negative) 08/29/21 09:49 Urine Glucose (UA) >=500 mg/dL (Negative) 08/29/21 09:49 Urine Ketones Neg mg/dL (Negative) 08/29/21 09:49 Urine Blood Neg (Negative) 08/29/21 09:49 Urine Nitrite Neg (Negative) 08/29/21 09:49 Urine Bilirubin Neg (Negative) 08/29/21 09:49 Urine Urobilinogen < 2.0 mg/dL (<2.0) 08/29/21 09:49 Ur Leukocyte Esterase Neg (Negative) 08/29/21 09:49 Urine WBC (Auto) 3.0 /HPF (0.0-6.0) 08/29/21 09:49 Urine RBC (Auto) 1.0 /HPF (0.0-6.0) 08/29/21 09:49 U Epithel Cells (Auto) 2.0 /HPF (0-13.0) 08/29/21 09:49 Urine Bacteria (Auto) 1+ /HPF (Negative) 08/29/21 09:49 Urine Mucus Few /HPF 08/29/21 09:49 Coronavirus (PCR) Negative (Negative) 09/01/21 09:09 Blood Type O POSITIVE 09/03/21 09:33 Antibody Screen Negative 09/03/21 09:33 Wray/IV: Voiding Method Toilet Active Medications - Current Medications Current Medications: Generic Name Dose Route Start Last Admin Trade Name Freq PRN Reason Stop Dose Admin Acetaminophen 650 mg 10/06/21 20:01 09/04/21 14:31 Acetaminophen 325 Mg Tab PO 650 mg Q4H PRN Administration Pain MILD(1-3)/Fever >100.5/GRADY Aspirin 81 mg 09/03/21 13:00 09/04/21 11:24 Aspirin Ec 81 Mg Tab PO Not Given QDAY ESTEBAN Atorvastatin Calcium 40 mg 09/03/21 22:00 09/04/21 21:28 Atorvastatin 40 Mg Tab PO 40 mg QHS ESTEBAN Administration Clonidine HCl 0.2 mg 09/05/21 22:00 Clonidine Tts 0.2 Mg/24 Hr Patch TD We ESTEBAN Enoxaparin Sodium 40 mg 09/01/21 10:00 09/04/21 11:26 Enoxaparin 40 Mg/0.4 Ml Inj SUB-Q Not Given DAILY [facility] Protocol Famotidine 20 mg 08/29/21 22:00 09/04/21 21:28 Famotidine 20 Mg/2 Ml Inj IV 20 mg BID ESTEBAN Administration Hydralazine HCl 10 mg 09/03/21 09:12 09/04/21 05:08 Hydralazine 20 Mg/1 Ml Inj IV 10 mg Q4HR PRN Administration SBP>160 or DBP>110 Hydromorphone HCl 0.5 mg 08/29/21 20:01 09/04/21 04:20 Hydromorphone 1 Mg/1 Ml Inj IV 0.5 mg Q3H PRN Administration Pain , Severe (7-10) Sodium Chloride 1,000 mls @ 75 mls/hr 09/03/21 21:15 09/05/21 05:52 Nacl 0.45% 1000 Ml IV 75 mls/hr DIRECT ESTEBAN Administration Insulin Glargine 15 units 08/30/21 22:00 09/04/21 21:30 Insulin Glargine 100 Units/Ml SUB-Q Not Given QHS ESTEBAN Insulin Human Lispro 0 unit 09/01/21 08:30 09/04/21 21:30 Insulin Lispro 100 Unit/Ml SUB-Q Not Given ACHS [facility] Protocol Lisinopril 10 mg 08/30/21 14:00 09/04/21 11:29 Lisinopril 5 Mg Tab PO 10 mg DAILY ESTEBAN Administration Metoclopramide HCl 10 mg 08/29/21 20:01 Metoclopramide 10 Mg/2 Ml Inj IV Q6H PRN Nausea And Vomiting Metoprolol Tartrate 25 mg 09/03/21 13:00 09/05/21 05:47 Metoprolol Tartrate 25 Mg Tab PO 25 mg Q8H ESTEBAN Administration Ondansetron HCl 4 mg 08/29/21 20:01 Ondansetron 4 Mg/2 Ml Inj IV Q8H PRN Nausea And Vomiting Sodium Chloride 10 ml 08/29/21 22:00 09/04/21 21:30 Sodium Chloride 0.9% 10 Ml Flush Syringe IV 10 ml BID ESTEBAN Administration Sodium Chloride 10 ml 08/29/21 20:01 Sodium Chloride 0.9% 10 Ml Flush Syringe IV PRN PRN LINE FLUSH
[2021-09-05] MEDS ORDERED: LIDOCAINE MPF (2%) 20 MG/1 ML VIAL 5 ML ONE (09:58)
[2021-09-05] MEDS ORDERED: ROCURONIUM 50 MG/5 ML INJ IV ONE ×2 (09:58→13:57)
[2021-09-05] MEDS ORDERED: HYDROmorphone 1 MG/1 ML INJ ONE ×2 (09:58→14:10)
[2021-09-05] MEDS ORDERED: ONDANSETRON 4 MG/2 ML INJ ONE ×2 (09:58→13:56)
[2021-09-05] MEDS ORDERED: propofoL 200 MG/20 ML VIAL IV ONE (09:58)
[2021-09-05] MEDS ORDERED: BUPIVACAINE/PF (0.25%) 2.5 MG/ML 30 ML VIAL INFILTRATI ONE ×2 (10:42→13:22)
[2021-09-05] MEDS ORDERED: LIDOCAINE (1%) 10 MG/1 ML VIAL 20 ML MDV ONE (10:42)
--- NOTE | 2021-09-05 11:13 | Progress Note ---
Assessment and Plan Abdominal pain with nausea and vomiting. GI endoscopy has revealed an ascending colon mass suspicious for cancer Preoperative cardiac assessment for right hemicolectomy Stress thallium test completed: small area of ischemia recommended for medical therapy. History of Myocardial infarction in 2018 s/p PCI of the LAD using LAMIN Noncompliant with medications and outpatient cardiac follow up Diabetes Hypertension Okay for surgery. Patient is considered moderate risk. Subjective Date of service: 09/05/21 Interval history: She is planned for right hemicolectomy today. Denies chest pain and unusual shortness of breath. Objective Vital Signs Temp Pulse Resp BP Pulse Ox 09/05/21 05:47 67 141/82 09/05/21 05:10 98.7 F 67 20 141/82 98 09/04/21 22:00 98 09/04/21 21:37 98.8 F 79 20 167/89 94 09/04/21 21:30 79 167/89 09/04/21 13:03 98.5 F 74 16 139/77 95 - Physical Examination General: No Apparent Distress HEENT: Positive: PERRL Neck: Positive: neck supple Cardiac: Positive: Reg Rate and Rhythm Lungs: Positive: Decreased Breath Sounds Neuro: Positive: Grossly Intact Abdomen: Positive: Soft Extremities: Absent: edema - Labs and Meds CBC 09/05/21 Range/Units 05:50 WBC 5.7 (4.5-11.0) K/mm3 RBC 4.33 (3.65-5.03) M/mm3 Hgb 11.6 (10.1-14.3) gm/dl Hct 35.3 (30.3-42.9) % Plt Count 299 (140-440) K/mm3 Lymph # (Auto) 2.6 (1.2-5.4) K/mm3 [place] # (Auto) 0.6 (0.0-0.8) K/mm3 Eos # (Auto) 0.3 (0.0-0.4) K/mm3 Baso # (Auto) 0.1 (0.0-0.1) K/mm3 Comprehensive Metabolic Panel 09/05/21 Range/Units 05:50 Sodium 144 (137-145) mmol/L Potassium 4.4 D (3.6-5.0) mmol/L Chloride 86.0 L (98-107) mmol/L Carbon Dioxide 24 (22-30) mmol/L BUN 8 (7-17) mg/dL Creatinine 0.8 (0.6-1.2) mg/dL Glucose 172 H (65-100) mg/dL Calcium 9.9 (8.4-10.2) mg/dL
[2021-09-05] MEDS: ENOXAPARIN 40 MG/0.4 ML INJ SUB-Q SCH (11:38)
[2021-09-05] MEDS: ASPIRIN EC 81 MG TAB PO SCH (11:38)
[2021-09-05] MEDS: LISINOPRIL 5 MG TAB PO SCH (11:39)
[2021-09-05] MEDS ORDERED: LACTATED RINGERS 1,000 ML ONE ×2 (12:05→14:16)
[2021-09-05] MEDS ORDERED: metroNIDAZOLE/NS 500 MG/100 ML 500 MG/100 ML BAG IV ONE (12:18)
[2021-09-05] MEDS ORDERED: ceFAZolin/Water 2 GM/20 ML 2 GM/20 ML SYRINGE IV ONE (12:19)
--- NOTE | 2021-09-05 12:49 | Hem/Onc Progress Note ---
Subjective Date of service: 09/05/21 Interval history: Heme/onc followup note CPT: 25556 Dx: colon mass This is a 52yo female who presents to the ED with nausea and abdominal pain Pain has increased over the last few weeks Denies diarrhea, constipation, weight loss Pt with history of diabetes and HTN Covid vaccinated Colonoscopy 08/31/21 c/w ulcerated, partially obstructing, large, circumfrential mass in the ascending colon measuring 6 cm History of AR in 2018---s/p PCI of the LAD using LAMIN Stress test completed 09/04/21---small area of ischemia but cardiology recommended medical therapy Cardiology cleared for surgery but patient is considered moderate risk DATA REVIEWED BELOW WBC 5.7 Hgb 11.6 Hct 345.3 MCV 82 Plts 299 CEA 11.3 IMP: New colon mass ---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 Relative high lymph percentage--not a problem Plan: Planned right colectomy Await for pathology after surgery Agree with DVT ppx Laboratory Last Values WBC 5.7 K/mm3 (4.5-11.0) 09/05/21 05:50 RBC 4.33 M/mm3 (3.65-5.03) 09/05/21 05:50 Hgb 11.6 gm/dl (10.1-14.3) 09/05/21 05:50 Hct 35.3 % (30.3-42.9) 09/05/21 05:50 MCV 82 fl (79-97) 09/05/21 05:50 MCH 27 pg (28-32) L 09/05/21 05:50 MCHC 33 % (30-34) 09/05/21 05:50 RDW 17.5 % (13.2-15.2) H 09/05/21 05:50 Plt Count 299 K/mm3 (140-440) 09/05/21 05:50 Lymph % (Auto) 45.2 % (13.4-35.0) H 09/05/21 05:50 Parmer % (Auto) 10.3 % (0.0-7.3) H 09/05/21 05:50 Eos % (Auto) 6.0 % (0.0-4.3) H 09/05/21 05:50 Baso % (Auto) 1.0 % (0.0-1.8) 09/05/21 05:50 Lymph # (Auto) 2.6 K/mm3 (1.2-5.4) 09/05/21 05:50 Parmer # (Auto) 0.6 K/mm3 (0.0-0.8) 09/05/21 05:50 Eos # (Auto) 0.3 K/mm3 (0.0-0.4) 09/05/21 05:50 Baso # (Auto) 0.1 K/mm3 (0.0-0.1) 09/05/21 05:50 Seg Neutrophils % 37.5 % (40.0-70.0) L 09/05/21 05:50 Seg Neutrophils # 2.1 K/mm3 (1.8-7.7) 09/05/21 05:50 VBG pH 7.344 (7.320-7.420) 08/29/21 11:10 Sodium 144 mmol/L (137-145) 09/05/21 05:50 Potassium 4.4 mmol/L (3.6-5.0) D 09/05/21 05:50 Chloride 86.0 mmol/L (98-107) L 09/05/21 05:50 Carbon Dioxide 24 mmol/L (22-30) 09/05/21 05:50 Anion Gap 38 mmol/L 09/05/21 05:50 BUN 8 mg/dL (7-17) 09/05/21 05:50 Creatinine 0.8 mg/dL (0.6-1.2) 09/05/21 05:50 Estimated GFR > 60 ml/min 09/05/21 05:50 BUN/Creatinine Ratio 10 % 09/05/21 05:50 Glucose 172 mg/dL (65-100) H 09/05/21 05:50 POC Glucose 179 mg/dL (70-105) H 09/05/21 11:13 Hemoglobin A1c 11.9 % (4-6) H 08/30/21 04:46 Ketones Quantitative Negative (Negative) 08/29/21 11:10 Calcium 9.9 mg/dL (8.4-10.2) 09/05/21 05:50 Iron 27 ug/dL (37-170) L 09/02/21 04:49 TIBC 282 mcg/dL (250-450) 09/02/21 04:49 Total Bilirubin 0.20 mg/dL (0.1-1.2) 08/30/21 04:46 Direct Bilirubin < 0.2 mg/dL (0-0.2) 08/29/21 09:28 Indirect Bilirubin 0.0 mg/dL 08/29/21 09:28 AST 34 units/L (5-40) 08/30/21 04:46 ALT 26 units/L (7-56) 08/30/21 04:46 Alkaline Phosphatase 91 units/L (35-129) 08/30/21 04:46 Troponin T < 0.010 ng/mL (0.00-0.029) 08/29/21 11:10 Total Protein 6.5 g/dL (6.3-8.2) 08/30/21 04:46 Albumin 3.9 g/dL (3.9-5) 08/30/21 04:46 Albumin/Globulin Ratio 1.5 % 08/30/21 04:46 Lipase 50 units/L (13-60) 08/29/21 09:28 Carcinoembryonic Ag 11.3 ng/mL (0.0-2.4) H 08/31/21 07:30 Urine Color Yellow (Yellow) 08/29/21 09:49 Urine Turbidity Clear (Clear) 08/29/21 09:49 Urine pH 5.0 (5.0-7.0) 08/29/21 09:49 Ur Specific [place] 1.017 (1.003-1.030) 08/29/21 09:49 Urine Protein <15 mg/dl mg/dL (Negative) 08/29/21 09:49 Urine Glucose (UA) >=500 mg/dL (Negative) 08/29/21 09:49 Urine Ketones Neg mg/dL (Negative) 08/29/21 09:49 Urine Blood Neg (Negative) 08/29/21 09:49 Urine Nitrite Neg (Negative) 08/29/21 09:49 Urine Bilirubin Neg (Negative) 08/29/21 09:49 Urine Urobilinogen < 2.0 mg/dL (<2.0) 08/29/21 09:49 Ur Leukocyte Esterase Neg (Negative) 08/29/21 09:49 Urine WBC (Auto) 3.0 /HPF (0.0-6.0) 08/29/21 09:49 Urine RBC (Auto) 1.0 /HPF (0.0-6.0) 08/29/21 09:49 U Epithel Cells (Auto) 2.0 /HPF (0-13.0) 08/29/21 09:49 Urine Bacteria (Auto) 1+ /HPF (Negative) 08/29/21 09:49 Urine Mucus Few /HPF 08/29/21 09:49 Coronavirus (PCR) Negative (Negative) 09/01/21 09:09 Blood Type O POSITIVE 09/03/21 09:33 Antibody Screen Negative 09/03/21 09:33 Objective - Constitutional Vitals: Last Vital Signs Temp 98.7 F 09/05/21 11:55 Pulse 66 09/05/21 11:55 Resp 18 09/05/21 11:55 BP 157/97 09/05/21 11:55 Pulse Ox 98 09/05/21 11:55 - Labs Lab Results: Laboratory Results - last 24 hr 08/31/21 09/04/21 09/04/21 07:30 17:06 22:00 WBC RBC Hgb Hct MCV MCH MCHC RDW Plt Count Lymph % (Auto) Parmer % (Auto) Eos % (Auto) Baso % (Auto) Lymph # (Auto) Parmer # (Auto) Eos # (Auto) Baso # (Auto) Seg Neutrophils % Seg Neutrophils # Sodium Potassium Chloride Carbon Dioxide Anion Gap BUN Creatinine Estimated GFR BUN/Creatinine Ratio Glucose POC Glucose 168 H 164 H Calcium Carcinoembryonic Ag 11.3 H 09/05/21 09/05/21 09/05/21 05:50 05:50 07:50 WBC 5.7 RBC 4.33 Hgb 11.6 Hct 35.3 MCV 82 MCH 27 L MCHC 33 RDW 17.5 H Plt Count 299 Lymph % (Auto) 45.2 H Parmer % (Auto) 10.3 H Eos % (Auto) 6.0 H Baso % (Auto) 1.0 Lymph # (Auto) 2.6 Parmer # (Auto) 0.6 Eos # (Auto) 0.3 Baso # (Auto) 0.1 Seg Neutrophils % 37.5 L Seg Neutrophils # 2.1 Sodium 144 Potassium 4.4 D Chloride 86.0 L Carbon Dioxide 24 Anion Gap 38 BUN 8 Creatinine 0.8 Estimated GFR > 60 BUN/Creatinine Ratio 10 Glucose 172 H POC Glucose 176 H Calcium 9.9 Carcinoembryonic Ag 09/05/21 11:13 WBC RBC Hgb Hct MCV MCH MCHC RDW Plt Count Lymph % (Auto) Parmer % (Auto) Eos % (Auto) Baso % (Auto) Lymph # (Auto) Parmer # (Auto) Eos # (Auto) Baso # (Auto) Seg Neutrophils % Seg Neutrophils # Sodium Potassium Chloride Carbon Dioxide Anion Gap BUN Creatinine Estimated GFR BUN/Creatinine Ratio Glucose POC Glucose 179 H Calcium Carcinoembryonic Ag Medications & Allergies - Medications Allergies/Adverse Reactions: Allergies No Known Allergies Allergy (Verified 08/31/21 00:24) Home Medications: Home Medications Medication Instructions Recorded Confirmed Last Taken Type Lisinopril [Zestril] 10 mg PO DAILY 09/26/20 08/31/21 08/29/21 08:00 History 10 mg Metoprolol [Lopressor] 25 mg PO DAILY 09/26/20 08/31/21 08/29/21 08:00 History 25 mg glipiZIDE [Glucotrol] 10 mg PO QDAY 09/26/20 08/31/21 08/29/21 08:00 History 10 mg metFORMIN [Glucophage] 1,000 mg PO QDAY 09/26/20 08/31/21 08/29/21 08:00 History 1000 mg Gabapentin 300 mg PO DAILY 08/31/21 08/31/21 08/27/21 21:00 History 300 Pantoprazole [Protonix TAB] 40 mg PO BID 08/31/21 08/31/21 08/29/21 08:00 History 40 mg Active Medications: Generic Name Dose Route Start Last Admin Trade Name Freq PRN Reason Stop Dose Admin Acetaminophen 650 mg 08/29/21 20:01 09/04/21 14:31 Acetaminophen 325 Mg Tab PO 650 mg Q4H PRN Administration Pain MILD(1-3)/Fever >100.5/GRADY Aspirin 81 mg 09/03/21 13:00 09/05/21 11:38 Aspirin Ec 81 Mg Tab PO Not Given QDAY ESTEBAN Atorvastatin Calcium 40 mg 09/03/21 22:00 09/04/21 21:28 Atorvastatin 40 Mg Tab PO 40 mg QHS ESTEBAN Administration Cefazolin Sodium 2 gm 09/05/21 13:00 Cefazolin/Sterile Water 2 Gm/20 Ml Syringe IV PREOP NR Clonidine HCl 0.2 mg 09/05/21 22:00 Clonidine Tts 0.2 Mg/24 Hr Patch TD We ESTEBAN Enoxaparin Sodium 40 mg 09/01/21 10:00 09/05/21 11:38 Enoxaparin 40 Mg/0.4 Ml Inj SUB-Q Not Given DAILY [facility] Protocol Famotidine 20 mg 08/29/21 22:00 09/04/21 21:28 Famotidine 20 Mg/2 Ml Inj IV 20 mg BID ESTEBAN Administration Hydralazine HCl 10 mg 09/03/21 09:12 09/04/21 05:08 Hydralazine 20 Mg/1 Ml Inj IV 10 mg Q4HR PRN Administration SBP>160 or DBP>110 Hydromorphone HCl 0.5 mg 08/29/21 20:01 09/04/21 04:20 Hydromorphone 1 Mg/1 Ml Inj IV 0.5 mg Q3H PRN Administration Pain , Severe (7-10) Sodium Chloride 1,000 mls @ 75 mls/hr 09/03/21 21:15 09/05/21 05:52 Nacl 0.45% 1000 Ml IV 75 mls/hr DIRECT ESTEBAN Administration Metronidazole 500 mg in 100 mls @ 200 mls/hr 09/05/21 13:00 Flagyl 500 Mg/100 Ml IV 09/05/21 13:29 PREOP NR Protocol Lactated Ringer's 1,000 mls @ 75 mls/hr 09/05/21 12:45 Lactated Ringers IV DIRECT ESTEBAN Insulin Glargine 15 units 08/30/21 22:00 09/04/21 21:30 Insulin Glargine 100 Units/Ml SUB-Q Not Given QHS [facility] Insulin Human Lispro 0 unit 09/01/21 08:30 09/05/21 11:38 Insulin Lispro 100 Unit/Ml SUB-Q Not Given ACHS [facility] Protocol Lisinopril 10 mg 08/30/21 14:00 09/05/21 11:39 Lisinopril 5 Mg Tab PO Not Given DAILY ESTEBAN Metoclopramide HCl 10 mg 08/29/21 20:01 Metoclopramide 10 Mg/2 Ml Inj IV Q6H PRN Nausea And Vomiting Metoprolol Tartrate 25 mg 09/03/21 13:00 09/05/21 05:47 Metoprolol Tartrate 25 Mg Tab PO 25 mg Q8H ESTEBAN Administration Ondansetron HCl 4 mg 08/29/21 20:01 Ondansetron 4 Mg/2 Ml Inj IV Q8H PRN Nausea And Vomiting Sodium Chloride 10 ml 08/29/21 22:00 09/04/21 21:30 Sodium Chloride 0.9% 10 Ml Flush Syringe IV 10 ml BID ESTEBAN Administration Sodium Chloride 10 ml 08/29/21 20:01 Sodium Chloride 0.9% 10 Ml Flush Syringe IV PRN PRN LINE FLUSH
[2021-09-05] MEDS ORDERED: ceFAZolin/STERILE WATER 2 GM/20 ML SYRINGE IV NR (13:00)
[2021-09-05] MEDS ORDERED: LACTATED RINGERS 1,000 ML IV SCH (13:00)
[2021-09-05] MEDS ORDERED: metroNIDAZOLE/NS 500 MG/100 ML 500 MG/100 ML BAG IV NR (13:00)
[2021-09-05] MEDS ORDERED: LIDOCAINE (1%) 10 MG/1 ML VIAL 20 ML MDV INFILTRATI ONE (13:22)
[2021-09-05] MEDS ORDERED: SODIUM CHLORIDE 0.9% IRR 1,500 ML BOTTLE IR ONE (13:22)
[2021-09-05] MEDS ORDERED: ePHEDrine SULFATE 50 MG/1 ML INJ ONE (13:40)
[2021-09-05] MEDS ORDERED: GLYCOPYRROLATE 0.4 MG/2 ML INJ ONE (13:56)
[2021-09-05] MEDS ORDERED: NEOSTIGMINE 10MG/10 ML INJ MDV ONE (13:56)
[2021-09-05] MEDS: FAMOTIDINE 20 MG/2 ML INJ IV SCH ×2 (15:35→21:06)
--- NOTE | 2021-09-05 16:43 | Anesthesia Day of Surgery ---
Anesthesia Day of Surgery - Day of Surgery Patient Examined: Yes Patient H&P Reviewed: Yes Patient is NPO: Yes
[2021-09-05] MEDS: HYDROmorphone 1 MG/1 ML INJ IV PRN ×6 (17:10→20:56)
[2021-09-05] MEDS ORDERED: ONDANSETRON 4 MG/2 ML INJ IV PRN (17:26)
[2021-09-05] MEDS: metroNIDAZOLE/NS 500 MG/100 ML 500 MG/100 ML BAG IV SCH (21:06)
[2021-09-05] MEDS ORDERED: cloNIDine TTS 0.2 MG/24 HR PATCH TD SCH (22:00)
[2021-09-05] MEDS: INSULIN GLARGINE 100 UNITS/ML SUB-Q SCH (22:05)
[2021-09-06] MEDS: HYDROmorphone 1 MG/1 ML INJ IV PRN ×3 (00:18→08:39)
[2021-09-06] MEDS: SODIUM CHLORIDE 0.9% 1000 ML 1,000 ML IV SCH ×3 (00:18→21:02)
[2021-09-06] MEDS: hydrALAZINE 20 MG/1 ML INJ IV PRN (05:07)
[2021-09-06] MEDS: METOPROLOL TARTRATE 25 MG TAB PO SCH ×3 (05:09→21:05)
[2021-09-06] MEDS: metroNIDAZOLE/NS 500 MG/100 ML 500 MG/100 ML BAG IV SCH (05:54)
[2021-09-06 06:15] LABS: Hematocrit 37.5 % (30.3-42.9); Hemoglobin 11.6 gm/dl (10.1-14.3); Mean Corpuscular HGB Conc 31 % (30-34); Mean Corpuscular Volume 81 fl (79-97); Platelet Count 326 K/mm3 (140-440); Red Blood Count 4.62 M/mm3 (3.65-5.03); Red Cell Distribution Width 17.5 % (13.2-15.2)
[2021-09-06 06:25] LABS: INR 0.97 (0.87-1.13)
[2021-09-06 06:26] LABS: Partial Thromboplastin Time 29.7 Sec. (24.2-36.6)
[2021-09-06 06:34] LABS: BUN/Creatinine Ratio 6; Blood Urea Nitrogen 6 mg/dL (7-17); Calcium 9.8 mg/dL (8.4-10.2); Hemolysis Index 8
[2021-09-06] MEDS: INSULIN LISPRO 100 UNIT/ML SUB-Q SCH ×4 (08:39→21:05)
[2021-09-06] MEDS: LISINOPRIL 5 MG TAB PO SCH (10:27)
[2021-09-06] MEDS: oxyCODONE /ACETAMINOPHEN 5-325MG TAB PO PRN (10:27)
[2021-09-06] MEDS: ENOXAPARIN 40 MG/0.4 ML INJ SUB-Q SCH (10:28)
[2021-09-06] MEDS: FAMOTIDINE 20 MG/2 ML INJ IV SCH ×2 (10:28→21:05)
[2021-09-06] MEDS: ASPIRIN EC 81 MG TAB PO SCH (10:28)
--- NOTE | 2021-09-06 10:30 | Operative Report ---
Operative Report Operative Report: Date of surgery: 09/05/2021 Preoperative diagnosis: Ascending colon mass Postoperative diagnosis: Same as above Procedure: Laparoscopic right hemicolectomy with primary anastomosis Surgeon: Kierra Castanon DO [employer] surgeon: MD Ac Anesthesia:GETA, local Findings: 6 cm ascending colon mass. No evidence of intraperitoneal or liver metastasis. EBL:25cc Specimen: Right colon, small bowel to colonic anastomosis Complications: None Disposition: Stable to PACU HPI and indication: Patient is a 56-year-old female who presented to the hospital complaining of periumbilical and right-sided abdominal pain. Patient was found to have a mass in her ascending colon on CT scan. She underwent a colonoscopy which confirmed the residents of a partially obstructing 6 cm neoplastic appearing mass in the ascending colon. It was recommended the patient undergo right hemicolectomy. Due to her cardiac history, CAD, a preoperative risk assessment was requested by cardiology. Patient underwent stress test which was evaluated and she was deemed moderate risk for surgery. All risks, benefits, alternatives to surgery were discussed with the patient and questions answered. Consent was obtained for laparoscopic right hemicolectomy, possible open, possible colostomy. Procedure in detail: The patient was identified in the preoperative area, taken back to the operating room and placed on the operating room table in supine position. After anesthesia was induced both arms were tucked and all bony prominences padded appropriately. A Wray catheter was sterilely placed by the circulating nurse. An OG tube was inserted by anesthesia. The abdomen was prepped and draped in the usual sterile fashion and a timeout performed. Local anesthetic was infiltrated into all skin incision sites. A brittany incision was made in the left upper quadrant at Ramirez's point through which a Veress needle was inserted. The Veress needle positioning was confirmed using saline drop test but upon insufflating the abdomen the pressures were high. The Veress needle was removed and this was attempted 1 more time without success. Due to the patient's body habitus, it is likely that the Veress needle could not traverse the entire abdominal wall. Therefore a brittany incision was made at the umbilicus and the umbilicus tented up with between 2 towel clamps. Veress needle was inserted and the positioning confirmed using the saline drop test. The abdomen was insufflated to 15 mmHg without incident. The Veress needle was removed and a 5 mm supraumbilical incision was made. An Optiview trocar was placed through this incision without difficulty. The abdomen was inspected and there was no underlying injury to any of the abdominal structures. An additional left upper quadrant 5 mm and left lower quadrant 5 mm trochars were placed under direct visualization. The patient was placed in Trendelenburg and tilted to the left. The terminal ileum was identified and traced up to the area of the mass. The mass was evident from tattoo during colonoscopy and the colon appeared grossly abnormal and firm in this area. I decided to extend the midline incision in order to facilitate placement of a hand port. The 5 mm port was removed and the incision extended in a cephalad direction. The fascia was dissected over 2 gloved fingers. An Rick hand port was inserted. The right colon was retracted cephalad towards the abdominal wall and the ileocolic vessels dissected. The mesentery was scored and dissected using the LigaSure. This was carried down to the transection site of the projected transection site of the terminal ileum and up towards the transverse colon. The 5 mm left lower quadrant port was removed and replaced with a 12 mm port under direct visualization. The ileocolic vessels were dissected at the takeoff from the SMA, and ligated using an Endo MELINA 60 mm vascular staple load. The staple line was examined and was intact without bleeding. Continue the mesenteric dissection with great care to avoid injury to the duodenum which was visualized and protected. The mesentery was ligated proximally. The middle colic takeoff was identified and the mesenteric dissection completed at the takeoff of the right branch. I then turned my attention to the lateral dissection. The white line of Toldt was dissected using the LigaSure from the cecum towards the hepatic flexure. Hepatic flexure was taken down. The omentum was dissected from the transverse colon using the LigaSure. At this point I transected my proximal margin approximately 5 cm from the ileocolic junction using a Endo MELINA 60 mm blue load staple. The colon was then exteriorized and the distal margin was transected using the Endo MELINA 60 mm blue load stapler. The specimen was examined. The mass measured approximately 6 cm. This was passed off the table as a specimen. I then aligned the small bowel and transverse colon in a antiperistaltic configuration. The antimesenteric borders were aligned and a 3-0 silk stay stitch was placed. Enterotomies were created and a [id number] functional end-to-end enterocolonic anastomosis was created using the Endo MELINA 60 mm blue load stapler The common channel was checked for hemostasis which was ensured. The common channel was closed using running 2 oh VueLock. A second layer of seromuscular Lembert stitches were placed using 3 oh silks. The anastomosis was placed back into the abdomen and examined. Unfortunately it did appear there was twisting of the small bowel on its mesentery and therefore it was decided to revise the anastomosis. The anastomosis was exteriorized and resected using a Endo MELINA 60 mm stapler blue load. The mesentery was ligated using the LigaSure and this was passed off the table as a specimen. The bowel was realigned, now in isoperistaltic configuration. The mesentery is were very carefully examined and were in anatomic position without twisting. A stay stitch was placed. Enterotomies were created and a [id number] functional end-to-end anastomosis was created with the Endo MELINA 60 mm blue load stapler. The common channel was checked for hemostasis which was carefully ensured. The common channel was closed using full-thickness 2 oh VueLock running stitch. A second layer of seromuscular Lembert stitches were placed using 3 oh silks. The anastomosis was palpated and was widely patent. This was placed back into the abdomen and reexamined. There was no twisting on the mesentery. At this point the abdomen was irrigated with warm saline. All of the irrigant returned clear and hemostasis was very carefully ensured. The 12 mm port fascia was closed using a 0 Vicryl interrupted stitch with a Nils Lopez device. The 5 mm port was removed. The abdomen was desufflated and the wound protector removed. The fascia of the midline incision was closed with #1 PDS running stitch. The subcutaneous tissue was irrigated and the deep dermal layer approximated using 3-0 Vicryl interrupted stitches. The skin incisions were approximated with 4-0 Monocryl subcuticular stitches and skin glue. Local anesthetic was once again infiltrated into all skin incision sites. At the end of the case, all sponge, instrument, sharp counts were correct x2. Patient was awoken from anesthesia, the Wray catheter removed, and taken to PACU in stable condition. Multiple attempts made to update patient's unsuccessful.
--- NOTE | 2021-09-06 10:31 | Progress Note ---
Assessment and Plan Assessment and plan: A 52-year-old with hypertension and type 2 diabetes who presented with complaints of abdominal pain and nausea. No diarrhea, or constipation. The patient was admitted with diagnosis of acute abdominal pain. CT scan completed on 08/29 revealed findings concerning for adenocarcinoma of the ascending colon. Colonoscopy revealed ulcerated, partially obstructing, large, circumfrential mass in the ascending colon measuring 6 cm. Acute abdominal pain Probable primary adenocarcinoma of ascending colon. Hypertension Diabetes mellitus type 2 DVT prophylaxis 09/01/21 Patient with colonic mass. For surgery on Friday. 09/02/21 Patient with colonic mass in ascending colon. Possible adenocarcinoma o f colon. For surgery tomorrow. 09/03/21 Patient presented with abdominal pain, found to have ascending colon mass on colonoscopy. For surgery today. Hypertension, uncontrolled. Give Hydralazine iv prn in addition to scheduled Metoprolol, Lisinopril Diabetes mellitus 09/04/2021. Patient for preoperative evaluation with stress test today. Follow-up CEA. Continue pain control. Surgery to perform right hemicolectomy later this week. 09/05/2021. Patient with stress test yesterday that revealed small area of ischemia but cardiology recommended medical therapy. Cardiology cleared for surgery but patient is considered moderate risk. Patient is to undergo right colectomy today. Continue supportive care 09/06/2021. Patient is s/p laparoscopic right hemicolectomy yesterday. Await pathology. Patient with clear liquid diet this morning and will advance as tolerated per surgery. Await return of bowel function and discharge per surgery recommendations. History Interval history: No new issues overnight. Hospitalist Physical - Constitutional Vitals: Temp Pulse Resp BP Pulse Ox 99.1 F 105 H 20 177/94 99 09/06/21 04:54 09/06/21 05:07 09/06/21 04:54 09/06/21 05:07 09/06/21 04:54 General appearance: Present: no acute distress, obese - EENT Eyes: Present: PERRL, EOM intact ENT: hearing intact, clear oral mucosa, dentition normal - Neck Neck: Present: supple, normal ROM - Respiratory Respiratory effort: normal Respiratory: bilateral: CTA - Cardiovascular Rhythm: regular Heart Sounds: Present: S1 & S2. Absent: gallop, rub - Extremities Extremities: no ischemia, No edema, Full ROM - Abdominal General gastrointestinal: soft, non-tender, non-distended, normal bowel sounds - Integumentary Integumentary: Present: clear, warm, dry - Neurologic Neurologic: CNII-XII intact, moves all extremities HEART Score - HEART Score Troponin: Troponin T < 0.010 ng/mL (0.00-0.029) 08/29/21 11:10 Results - Labs CBC & Chem 7: 09/06/21 05:52 09/06/21 05:52 Labs: Laboratory Last Values WBC 11.3 K/mm3 (4.5-11.0) H 09/06/21 05:52 RBC 4.62 M/mm3 (3.65-5.03) 09/06/21 05:52 Hgb 11.6 gm/dl (10.1-14.3) 09/06/21 05:52 Hct 37.5 % (30.3-42.9) 09/06/21 05:52 MCV 81 fl (79-97) 09/06/21 05:52 MCH 25 pg (28-32) L 09/06/21 05:52 MCHC 31 % (30-34) 09/06/21 05:52 RDW 17.5 % (13.2-15.2) H 09/06/21 05:52 Plt Count 326 K/mm3 (140-440) 09/06/21 05:52 Lymph % (Auto) 45.2 % (13.4-35.0) H 09/05/21 05:50 Coles % (Auto) 10.3 % (0.0-7.3) H 09/05/21 05:50 Eos % (Auto) 6.0 % (0.0-4.3) H 09/05/21 05:50 Baso % (Auto) 1.0 % (0.0-1.8) 09/05/21 05:50 Lymph # (Auto) 2.6 K/mm3 (1.2-5.4) 09/05/21 05:50 Coles # (Auto) 0.6 K/mm3 (0.0-0.8) 09/05/21 05:50 Eos # (Auto) 0.3 K/mm3 (0.0-0.4) 09/05/21 05:50 Baso # (Auto) 0.1 K/mm3 (0.0-0.1) 09/05/21 05:50 Seg Neutrophils % 37.5 % (40.0-70.0) L 09/05/21 05:50 Seg Neutrophils # 2.1 K/mm3 (1.8-7.7) 09/05/21 05:50 PT 14.0 Sec. (12.2-14.9) 09/06/21 05:52 INR 0.97 (0.87-1.13) 09/06/21 05:52 APTT 29.7 Sec. (24.2-36.6) 09/06/21 05:52 Fibrinogen 540 mg/dl (211-480) H 09/06/21 05:52 VBG pH 7.344 (7.320-7.420) 08/29/21 11:10 Sodium 138 mmol/L (137-145) 09/06/21 05:52 Potassium 4.1 mmol/L (3.6-5.0) 09/06/21 05:52 Chloride 99.7 mmol/L (98-107) 09/06/21 05:52 Carbon Dioxide 21 mmol/L (22-30) L 09/06/21 05:52 Anion Gap 21 mmol/L 09/06/21 05:52 BUN 6 mg/dL (7-17) L 09/06/21 05:52 Creatinine 1.0 mg/dL (0.6-1.2) 09/06/21 05:52 Estimated GFR > 60 ml/min 09/06/21 05:52 BUN/Creatinine Ratio 6 % 09/06/21 05:52 Glucose 233 mg/dL (65-100) H 09/06/21 05:52 POC Glucose 231 mg/dL (70-105) H 09/06/21 07:43 Hemoglobin A1c 11.9 % (4-6) H 08/30/21 04:46 Ketones Quantitative Negative (Negative) 08/29/21 11:10 Calcium 9.8 mg/dL (8.4-10.2) 09/06/21 05:52 Iron 27 ug/dL (37-170) L 09/02/21 04:49 TIBC 282 mcg/dL (250-450) 09/02/21 04:49 Total Bilirubin 0.20 mg/dL (0.1-1.2) 08/30/21 04:46 Direct Bilirubin < 0.2 mg/dL (0-0.2) 08/29/21 09:28 Indirect Bilirubin 0.0 mg/dL 08/29/21 09:28 AST 34 units/L (5-40) 08/30/21 04:46 ALT 26 units/L (7-56) 08/30/21 04:46 Alkaline Phosphatase 91 units/L (35-129) 08/30/21 04:46 Troponin T < 0.010 ng/mL (0.00-0.029) 08/29/21 11:10 Total Protein 6.5 g/dL (6.3-8.2) 08/30/21 04:46 Albumin 3.9 g/dL (3.9-5) 08/30/21 04:46 Albumin/Globulin Ratio 1.5 % 08/30/21 04:46 Lipase 50 units/L (13-60) 08/29/21 09:28 Carcinoembryonic Ag 11.3 ng/mL (0.0-2.4) H 08/31/21 07:30 Urine Color Yellow (Yellow) 08/29/21 09:49 Urine Turbidity Clear (Clear) 08/29/21 09:49 Urine pH 5.0 (5.0-7.0) 08/29/21 09:49 Ur Specific [place] 1.017 (1.003-1.030) 08/29/21 09:49 Urine Protein <15 mg/dl mg/dL (Negative) 08/29/21 09:49 Urine Glucose (UA) >=500 mg/dL (Negative) 08/29/21 09:49 Urine Ketones Neg mg/dL (Negative) 08/29/21 09:49 Urine Blood Neg (Negative) 08/29/21 09:49 Urine Nitrite Neg (Negative) 08/29/21 09:49 Urine Bilirubin Neg (Negative) 08/29/21 09:49 Urine Urobilinogen < 2.0 mg/dL (<2.0) 08/29/21 09:49 Ur Leukocyte Esterase Neg (Negative) 08/29/21 09:49 Urine WBC (Auto) 3.0 /HPF (0.0-6.0) 08/29/21 09:49 Urine RBC (Auto) 1.0 /HPF (0.0-6.0) 08/29/21 09:49 U Epithel Cells (Auto) 2.0 /HPF (0-13.0) 08/29/21 09:49 Urine Bacteria (Auto) 1+ /HPF (Negative) 08/29/21 09:49 Urine Mucus Few /HPF 08/29/21 09:49 Coronavirus (PCR) Negative (Negative) 09/01/21 09:09 Blood Type O POSITIVE 09/03/21 09:33 Antibody Screen Negative 09/03/21 09:33 Wray/IV: Voiding Method Toilet Active Medications - Current Medications Current Medications: Generic Name Dose Route Start Last Admin Trade Name Freq PRN Reason Stop Dose Admin Acetaminophen 650 mg 08/29/21 20:01 09/04/21 14:31 Acetaminophen 325 Mg Tab PO 650 mg Q4H PRN Administration Pain MILD(1-3)/Fever >100.5/GRADY Aspirin 81 mg 09/03/21 13:00 09/05/21 11:38 Aspirin Ec 81 Mg Tab PO Not Given QDAY ESTEBAN Atorvastatin Calcium 40 mg 09/03/21 22:00 09/05/21 21:06 Atorvastatin 40 Mg Tab PO 40 mg QHS ESTEBAN Administration Clonidine HCl 0.2 mg 09/05/21 22:00 09/05/21 22:05 Clonidine Tts 0.2 Mg/24 Hr Patch TD 0.2 mg We [facility] Administration Enoxaparin Sodium 40 mg 09/01/21 10:00 09/05/21 11:38 Enoxaparin 40 Mg/0.4 Ml Inj SUB-Q Not Given DAILY [facility] Protocol Famotidine 20 mg 08/29/21 22:00 09/05/21 21:06 Famotidine 20 Mg/2 Ml Inj IV 20 mg BID ESTEBAN Administration Hydralazine HCl 10 mg 09/03/21 09:12 09/06/21 05:07 Hydralazine 20 Mg/1 Ml Inj IV 10 mg Q4HR PRN Administration SBP>160 or DBP>110 Hydromorphone HCl 0.5 mg 08/29/21 20:01 09/06/21 08:39 Hydromorphone 1 Mg/1 Ml Inj IV 0.5 mg Q3H PRN Administration Pain , Severe (7-10) Lactated Ringer's 1,000 mls @ 75 mls/hr 09/05/21 13:00 09/05/21 12:10 Lactated Ringers IV 75 mls/hr DIRECT ESTEBAN Administration Sodium Chloride 1,000 mls @ 100 mls/hr 09/05/21 23:45 09/06/21 00:18 Nacl 0.9% 1000 Ml IV 100 mls/hr DIRECT ESTEBAN Administration Insulin Glargine 15 units 08/30/21 22:00 09/05/21 22:05 Insulin Glargine 100 Units/Ml SUB-Q 15 units QHS ESTEBAN Administration Insulin Human Lispro 0 unit 09/01/21 08:30 09/06/21 08:39 Insulin Lispro 100 Unit/Ml SUB-Q 3 unit ACHS ESTEBAN Administration Protocol Lisinopril 10 mg 08/30/21 14:00 09/05/21 11:39 Lisinopril 5 Mg Tab PO Not Given DAILY ESTEBAN Metoclopramide HCl 10 mg 08/29/21 20:01 Metoclopramide 10 Mg/2 Ml Inj IV Q6H PRN Nausea And Vomiting Metoprolol Tartrate 25 mg 09/03/21 13:00 09/06/21 05:09 Metoprolol Tartrate 25 Mg Tab PO 25 mg Q8H ESTEBAN Administration Ondansetron HCl 4 mg 08/29/21 20:01 Ondansetron 4 Mg/2 Ml Inj IV Q8H PRN Nausea And Vomiting Ondansetron HCl 4 mg 09/05/21 17:26 Ondansetron 4 Mg/2 Ml Inj IV ONCE PRN Nausea And Vomiting Oxycodone/Acetaminophen 2 tab 09/06/21 09:12 Oxycodone /Acetaminophen 5-325mg Tab PO Q6H PRN Pain, Moderate (4-6) Sodium Chloride 10 ml 08/29/21 22:00 09/05/21 22:05 Sodium Chloride 0.9% 10 Ml Flush Syringe IV 10 ml BID ESTEBAN Administration Sodium Chloride 10 ml 08/29/21 20:01 Sodium Chloride 0.9% 10 Ml Flush Syringe IV PRN PRN LINE FLUSH Nutrition/Malnutrition Assess - Dietary Evaluation Nutrition/Malnutrition Findings: Nutrition Notes Start: 09/05/21 12:46 Freq: Status: Active Protocol: Document 09/05/21 12:46 MEENA (Rec: 09/05/21 12:54 MEENA [id number]) Nutrition Notes Need for Assessment generated from: LOS Initial or Follow up Assessment Current Diagnosis Coronary Artery Disease, Diabetes,Hypertension Other Pertinent Diagnosis Adenocarcinoma of colon Current Diet NPO Labs/Tests BG 172 Pertinent Medications Reviewed Height 5 ft 5.5 in Weight 95.3 kg [place] Body Weight (kg) 57.95 BMI 34.4 Weight Status Obese Subjective/Other Information Pt screened for LOS. She is in surgery at this time; scheduled for (R) hemicolectomy. 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 No Is Patient Ambulatory and/or Out of Bed Yes REE-([place]-St. Jeor-ambulatory/OOB) [ 2030.353 NUTR.[id number]] Kcal/Kg value to use for calculation 16 Approximate Energy Requirements Using 1525 kcal/Kg Calculation Used for Recommendations Kcal/kg Additional Notes Pro needs 1-1.2g/kg adjBW: 77- 92g/day Fluid needs 1ml/kcal Nutrition Intervention Change Diet Order: Advance diet as tolerated ( Cardiac/Consistent CHO GI soft ) Goal #1 Diet advancement to meet nutrient needs Anticipated Discharge Needs: None identified at this time Follow-Up By: 09/07/21 Additional Comments F/U: diet advancement, PO tolerance, wt assessment
--- NOTE | 2021-09-06 10:33 | Post Operative Note ---
Date of procedure: 09/05/21 Pre-op diagnosis: Ascending colon mass Post-op diagnosis: same Findings: 6 cm ascending colon mass. No evidence of intraperitoneal or liver metastasis. Procedure: Laparoscopic right hemicolectomy with primary anastomosis Anesthesia: SADIQ, local Surgeon: ARETHA THOMASON Communications Scientist: YULIYA STAPLETON Estimated blood loss: minimal (25cc) Pathology: list (Right colon, small bowel to colonic anastomosis) Specimen disposition: to lab Condition: stable Disposition: PACU
--- NOTE | 2021-09-06 11:07 | Nuclear Medicine Report ---
APPROVED REPORT Exam: Nuclear Stress Test Indication: Chest pain Patient Location: -SURGICAL UNIT Room #: 375 Ht: 5 ft 5 in Wt: 209 lbs BSA: 2.02 m2 HR: 73 bpmBP: 199/88 mmHgBMI: 34.77 Medical History Medical History: Diabetes, HTN, CAD s/p stent, CAD s/p PA Stress Test Details Stress Test: Exercise stress testing was performed using a Cullen protocol. HR Resting HR: 73 bpm Max HR Achieved: 169 bpm Max Heart Rate (APMHR): 166 bpm Target HR (85% APMHR): 141 bpm % of APMHR: 101 BP Resting BP: 199/88 mmHg Max BP: 205/112 mmHg Recovery BP: 167/89 mmHg ECG Resting ECG: Sinus Rhythm Stress ECG: Sinus Tachycardia ST Change: Eqivocally ischemic Arrhythmia: None Recovery ECG: Sinus Rhythm Recovery ST Change: None Recovery Arrhythmia: None Clinical Reason for Termination: Maximal effort Stress Symptoms: leg cramps Exercise duration: 6 min 47 sec Exercise capacity: 7.1 METs Stress ECG Conclusion No chest pain with exercise to 8 METS. ECG changes borderline. Myocardial perfusion images are pending for final test interpretation. NM EXAM: Myocardial Perfusion REST/STRESS Imaging Protocol: Rest Tc-99m/Stress Tc-99m 1 day Resting Data Rest SPECT myocardial perfusion imaging was performed in supine position 45 minutes following the intravenous injection of 10 mCi of Tc-99m Myoview. Time of rest injection: 0645 Exercise Stress At peak stress, the patient was injected intravenously with 28mCi of Tc-99m Myoview. Time of stress injection: 1002 Gated Stress SPECT was performed 30 minutes after stress injection. The images were gated to evaluate regional wall motion and calculate left ventricular ejection fraction. Study Quality Study: excellent Lung Uptake: Normal Study Data TID = 1.78. Perfusion Wall Motion The rest and stress images show normal left ventricular wall motion. Left ventricular ejection fraction calculated at 69% Nuclear Conclusion ECG Findings: equivocal Clinical Findings: negative for ischemia Nuclear Findings: negative for ischemia Exercise Capacity: normal Left Ventricular Function: normal Risk Study: low No chest pain with exercise to 7 METS, EKG changes are equivocal. Myocardial perfusion images showed normal perfusion uptake in all segments with no defects. Normal left ventricular systolic function. Low risk exercise myocardial perfusion study. Conclusion No chest pain with exercise to 8 METS. ECG changes borderline. Myocardial perfusion images are pending for final test interpretation.
--- NOTE | 2021-09-06 11:54 | Progress Note ---
Assessment and Plan - Patient Problems (1) Pre-op evaluation Current Visit: Yes Status: Acute Plan to address problem: Postoperative hemicolectomy. History of coronary artery disease and prior remote coronary stenting. Normal exercise thallium stress test done before surgery. Cardiac status stable through recovery so far, we will order a twelve- lead EKG for tomorrow morning. Subjective Date of service: 09/06/21 Interval history: Patient is postoperative, doing well, no cardiac complaints today. She complains only of abdominal pain, otherwise comfortable breathing on room air in no distress. Objective Vital Signs Temp Pulse Resp BP BP Pulse Ox 09/06/21 05:07 105 H 177/94 09/06/21 04:54 99.1 F 105 H 20 177/94 99 09/06/21 00:32 96 09/05/21 22:04 88 177/97 09/05/21 22:00 98.7 F 92 H 20 177/97 100 09/05/21 21:59 98.7 F 89 20 184/99 100 09/05/21 18:15 84 16 153/76 99 09/05/21 17:45 70 16 136/78 100 09/05/21 17:30 97.6 F 72 16 124/79 100 09/05/21 17:15 72 16 152/78 100 09/05/21 17:05 66 16 159/84 100 09/05/21 17:00 78 18 148/79 100 09/05/21 16:56 97.8 F 71 18 149/78 100 09/05/21 11:55 98.7 F 66 18 157/97 98 - Physical Examination General: No Apparent Distress HEENT: Positive: PERRL Neck: Positive: neck supple Cardiac: Positive: Reg Rate and Rhythm Lungs: Positive: clear to auscultation Neuro: Positive: Grossly Intact Abdomen: Positive: Tender (Postoperative) Skin: Positive: Clear Extremities: Absent: edema - Labs and Meds Coagulation 09/06/21 Range/Units 05:52 PT 14.0 (12.2-14.9) Sec. INR 0.97 (0.87-1.13) APTT 29.7 (24.2-36.6) Sec. CBC 09/06/21 Range/Units 05:52 WBC 11.3 H (4.5-11.0) K/mm3 RBC 4.62 (3.65-5.03) M/mm3 Hgb 11.6 (10.1-14.3) gm/dl Hct 37.5 (30.3-42.9) % Plt Count 326 (140-440) K/mm3 Comprehensive Metabolic Panel 09/06/21 Range/Units 05:52 Sodium 138 (137-145) mmol/L Potassium 4.1 (3.6-5.0) mmol/L Chloride 99.7 (98-107) mmol/L Carbon Dioxide 21 L (22-30) mmol/L BUN 6 L (7-17) mg/dL Creatinine 1.0 (0.6-1.2) mg/dL Glucose 233 H (65-100) mg/dL Calcium 9.8 (8.4-10.2) mg/dL
--- NOTE | 2021-09-06 13:03 | Progress Note ---
Assessment and Plan 56-year-old female status post laparoscopic right hemicolectomy with primary anastomosis, POD 1 1. ascending colon mass cscope 08/31/21 - Ulcerated, partially obstructing, large, circumfrential mass in the ascending colon measuring 6 cm. Plan: 1. continue CLD -> adv to FLD in am tomorrow with dietary supplements 2. CEA/path pending 3. prn pain control 4. DVT ppx 5. Oncology note reviewed 6. cards on board 7. Pain management - add percocet and toradol, continue dilaudid for severe pain. 8. OOB/IS/pulm toilet 9. Anticipate dc in 48 hours Explained to the patient that further management for colon cancer would be determined based on pathology results from surgery yesterday. Will follow. Dr. Mustafa to round 09/07/2021 to 09/09/2020 Evaluation and treatment of this patient was during the time of the national and state emergency arising from COVID19 coronavirus pandemic. Treatment and procedures performed meet the current and available best practice and guidelines for patient during the COVID pandemic. Subjective Date of service: 09/06/21 Narrative: Patient seen and examined. Complains of incisional pain which is controlled wit h current IV pain medication regimen. No nausea or vomiting. Tolerating clears. Afebrile. Objective Vital Signs - 12hr 09/06/21 09/06/21 04:54 05:07 Temperature 99.1 F Pulse Rate 105 H 105 H Respiratory 20 Rate Blood Pressure 177/94 177/94 O2 Sat by Pulse 99 Oximetry - General physical appearance Narrative Exam: Gen.: Awake, alert, oriented x3. No apparent distress ENT: Trachea midline. No lymphadenopathy. No scleral icterus or conjunctival pallor CV: S1, S2 present Respiratory: No audible wheezes Abdomen: Soft, nondistended, mild incisional tenderness. All incisions are vannessa an, dry, intact without erythema, induration or fluctuance. no rebound, rigidity, guarding Extremities: No clubbing, cyanosis, edema - Labs 09/06/21 05:52 09/06/21 05:52 Diabetes panel 09/06/21 Range/Units 05:52 Sodium 138 (137-145) mmol/L Potassium 4.1 (3.6-5.0) mmol/L Chloride 99.7 (98-107) mmol/L Carbon Dioxide 21 L (22-30) mmol/L BUN 6 L (7-17) mg/dL Creatinine 1.0 (0.6-1.2) mg/dL Glucose 233 H (65-100) mg/dL Calcium 9.8 (8.4-10.2) mg/dL Calcium panel 09/06/21 Range/Units 05:52 Calcium 9.8 (8.4-10.2) mg/dL Pituitary panel 09/06/21 Range/Units 05:52 Sodium 138 (137-145) mmol/L Potassium 4.1 (3.6-5.0) mmol/L Chloride 99.7 (98-107) mmol/L Carbon Dioxide 21 L (22-30) mmol/L BUN 6 L (7-17) mg/dL Creatinine 1.0 (0.6-1.2) mg/dL Glucose 233 H (65-100) mg/dL Calcium 9.8 (8.4-10.2) mg/dL Adrenal panel 09/06/21 Range/Units 05:52 Sodium 138 (137-145) mmol/L Potassium 4.1 (3.6-5.0) mmol/L Chloride 99.7 (98-107) mmol/L Carbon Dioxide 21 L (22-30) mmol/L BUN 6 L (7-17) mg/dL Creatinine 1.0 (0.6-1.2) mg/dL Glucose 233 H (65-100) mg/dL Calcium 9.8 (8.4-10.2) mg/dL
[2021-09-06] MEDS: KETOROLAC 30 MG/1 ML INJ IV SCH ×2 (14:49→21:05)
[2021-09-06] MEDS: INSULIN GLARGINE 100 UNITS/ML SUB-Q SCH (21:04)
[2021-09-07] MEDS: KETOROLAC 30 MG/1 ML INJ IV SCH ×3 (05:36→22:50)
[2021-09-07] MEDS: METOPROLOL TARTRATE 25 MG TAB PO SCH ×3 (05:38→22:48)
[2021-09-07] MEDS: oxyCODONE /ACETAMINOPHEN 5-325MG TAB PO PRN (05:40)
[2021-09-07 06:46] LABS: Basophils % (Auto) 0.4 % (0.0-1.8); Eosinophils % (Auto) 0.2 % (0.0-4.3); Hematocrit 30.7 % (30.3-42.9); Lymphocytes # (Auto) 1.4 K/mm3 (1.2-5.4); Lymphocytes % (Auto) 15.4 % (13.4-35.0); Mean Corpuscular HGB Conc 33 % (30-34); Mean Corpuscular Volume 82 fl (79-97); Monocytes # (Auto) 0.9 K/mm3 (0.0-0.8); Monocytes % (Auto) 9.8 % (0.0-7.3); Platelet Count 268 K/mm3 (140-440); Red Blood Count 3.76 M/mm3 (3.65-5.03); Red Cell Distribution Width 17.4 % (13.2-15.2)
[2021-09-07] MEDS: INSULIN LISPRO 100 UNIT/ML SUB-Q SCH ×4 (08:35→22:56)
--- NOTE | 2021-09-07 09:49 | Hem/Onc Progress Note ---
Subjective Date of service: 09/07/21 Interval history: Heme/onc followup note CPT: 60467 Dx: colon mass This is a 52yo female who presents to the ED with nausea and abdominal pain Pain has increased over the last few weeks Denies diarrhea, constipation, weight loss Pt with history of diabetes and HTN Covid vaccinated Colonoscopy 08/31/21 c/w ulcerated, partially obstructing, large, circumfrential mass in the ascending colon measuring 6 cm History of PA in 2018---s/p PCI of the LAD using LAMIN Stress test completed 09/04/21---small area of ischemia but cardiology recommended medical therapy Cardiology cleared for surgery but patient is considered moderate risk Right hemicolectomy 09/05/2021 DATA REVIEWED BELOW WBC 8.8 Hgb 10 Hct 30.7 MCV 82 Plts 268 CEA 11.3 IMP: New colon mass ---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 Relative high lymph percentage--not a problem Plan: Awaiting colectomy pathology results Labs to include daily CBC Laboratory Last Values WBC 8.8 K/mm3 (4.5-11.0) 09/07/21 05:00 RBC 3.76 M/mm3 (3.65-5.03) 09/07/21 05:00 Hgb 10.0 gm/dl (10.1-14.3) L 09/07/21 05:00 Hct 30.7 % (30.3-42.9) D 09/07/21 05:00 MCV 82 fl (79-97) 09/07/21 05:00 MCH 27 pg (28-32) L 09/07/21 05:00 MCHC 33 % (30-34) 09/07/21 05:00 RDW 17.4 % (13.2-15.2) H 09/07/21 05:00 Plt Count 268 K/mm3 (140-440) 09/07/21 05:00 Lymph % (Auto) 15.4 % (13.4-35.0) 09/07/21 05:00 [place] % (Auto) 9.8 % (0.0-7.3) H 09/07/21 05:00 Eos % (Auto) 0.2 % (0.0-4.3) 09/07/21 05:00 Baso % (Auto) 0.4 % (0.0-1.8) 09/07/21 05:00 Lymph # (Auto) 1.4 K/mm3 (1.2-5.4) 09/07/21 05:00 [place] # (Auto) 0.9 K/mm3 (0.0-0.8) H 09/07/21 05:00 Eos # (Auto) 0.0 K/mm3 (0.0-0.4) 09/07/21 05:00 Baso # (Auto) 0.0 K/mm3 (0.0-0.1) 09/07/21 05:00 Seg Neutrophils % 74.2 % (40.0-70.0) H 09/07/21 05:00 Seg Neutrophils # 6.6 K/mm3 (1.8-7.7) 09/07/21 05:00 PT 14.0 Sec. (12.2-14.9) 09/06/21 05:52 INR 0.97 (0.87-1.13) 09/06/21 05:52 APTT 29.7 Sec. (24.2-36.6) 09/06/21 05:52 Fibrinogen 540 mg/dl (211-480) H 09/06/21 05:52 VBG pH 7.344 (7.320-7.420) 08/29/21 11:10 Sodium 138 mmol/L (137-145) 09/06/21 05:52 Potassium 4.1 mmol/L (3.6-5.0) 09/06/21 05:52 Chloride 99.7 mmol/L (98-107) 09/06/21 05:52 Carbon Dioxide 21 mmol/L (22-30) L 09/06/21 05:52 Anion Gap 21 mmol/L 09/06/21 05:52 BUN 6 mg/dL (7-17) L 09/06/21 05:52 Creatinine 1.0 mg/dL (0.6-1.2) 09/06/21 05:52 Estimated GFR > 60 ml/min 09/06/21 05:52 BUN/Creatinine Ratio 6 % 09/06/21 05:52 Glucose 233 mg/dL (65-100) H 09/06/21 05:52 POC Glucose 142 mg/dL (70-105) H 09/07/21 07:10 Hemoglobin A1c 11.9 % (4-6) H 08/30/21 04:46 Ketones Quantitative Negative (Negative) 08/29/21 11:10 Calcium 9.8 mg/dL (8.4-10.2) 09/06/21 05:52 Iron 27 ug/dL (37-170) L 09/02/21 04:49 TIBC 282 mcg/dL (250-450) 09/02/21 04:49 Total Bilirubin 0.20 mg/dL (0.1-1.2) 08/30/21 04:46 Direct Bilirubin < 0.2 mg/dL (0-0.2) 08/29/21 09:28 Indirect Bilirubin 0.0 mg/dL 08/29/21 09:28 AST 34 units/L (5-40) 08/30/21 04:46 ALT 26 units/L (7-56) 08/30/21 04:46 Alkaline Phosphatase 91 units/L (35-129) 08/30/21 04:46 Troponin T < 0.010 ng/mL (0.00-0.029) 08/29/21 11:10 Total Protein 6.5 g/dL (6.3-8.2) 08/30/21 04:46 Albumin 3.9 g/dL (3.9-5) 08/30/21 04:46 Albumin/Globulin Ratio 1.5 % 08/30/21 04:46 Lipase 50 units/L (13-60) 08/29/21 09:28 Carcinoembryonic Ag 11.3 ng/mL (0.0-2.4) H 08/31/21 07:30 Urine Color Yellow (Yellow) 08/29/21 09:49 Urine Turbidity Clear (Clear) 08/29/21 09:49 Urine pH 5.0 (5.0-7.0) 08/29/21 09:49 Ur Specific [place] 1.017 (1.003-1.030) 08/29/21 09:49 Urine Protein <15 mg/dl mg/dL (Negative) 08/29/21 09:49 Urine Glucose (UA) >=500 mg/dL (Negative) 08/29/21 09:49 Urine Ketones Neg mg/dL (Negative) 08/29/21 09:49 Urine Blood Neg (Negative) 08/29/21 09:49 Urine Nitrite Neg (Negative) 08/29/21 09:49 Urine Bilirubin Neg (Negative) 08/29/21 09:49 Urine Urobilinogen < 2.0 mg/dL (<2.0) 08/29/21 09:49 Ur Leukocyte Esterase Neg (Negative) 08/29/21 09:49 Urine WBC (Auto) 3.0 /HPF (0.0-6.0) 08/29/21 09:49 Urine RBC (Auto) 1.0 /HPF (0.0-6.0) 08/29/21 09:49 U Epithel Cells (Auto) 2.0 /HPF (0-13.0) 08/29/21 09:49 Urine Bacteria (Auto) 1+ /HPF (Negative) 08/29/21 09:49 Urine Mucus Few /HPF 08/29/21 09:49 Coronavirus (PCR) Negative (Negative) 09/01/21 09:09 Blood Type O POSITIVE 09/03/21 09:33 Antibody Screen Negative 09/03/21 09:33 Objective - Constitutional Vitals: Last Vital Signs Temp 100.0 F H 09/06/21 17:23 Pulse 104 H 09/07/21 05:38 Resp 22 09/06/21 17:23 BP 155/78 09/07/21 05:38 Pulse Ox 96 09/06/21 22:44 - Labs Lab Results: Laboratory Results - last 24 hr 09/06/21 09/06/21 09/06/21 11:35 17:21 20:47 WBC RBC Hgb Hct MCV MCH MCHC RDW Plt Count Lymph % (Auto) [place] % (Auto) Eos % (Auto) Baso % (Auto) Lymph # (Auto) [place] # (Auto) Eos # (Auto) Baso # (Auto) Seg Neutrophils % Seg Neutrophils # POC Glucose 199 H 140 H 111 H 09/07/21 09/07/21 05:00 07:10 WBC 8.8 RBC 3.76 Hgb 10.0 L Hct 30.7 D MCV 82 MCH 27 L MCHC 33 RDW 17.4 H Plt Count 268 Lymph % (Auto) 15.4 [place] % (Auto) 9.8 H Eos % (Auto) 0.2 Baso % (Auto) 0.4 Lymph # (Auto) 1.4 [place] # (Auto) 0.9 H Eos # (Auto) 0.0 Baso # (Auto) 0.0 Seg Neutrophils % 74.2 H Seg Neutrophils # 6.6 POC Glucose 142 H Medications & Allergies - Medications Allergies/Adverse Reactions: Allergies No Known Allergies Allergy (Verified 08/31/21 00:24) Home Medications: Home Medications Medication Instructions Recorded Confirmed Last Taken Type Lisinopril [Zestril] 10 mg PO DAILY 09/26/20 08/31/21 08/29/21 08:00 History 10 mg Metoprolol [Lopressor] 25 mg PO DAILY 09/26/20 08/31/21 08/29/21 08:00 History 25 mg glipiZIDE [Glucotrol] 10 mg PO QDAY 09/26/20 08/31/21 08/29/21 08:00 History 10 mg metFORMIN [Glucophage] 1,000 mg PO QDAY 09/26/20 08/31/21 08/29/21 08:00 History 1000 mg Gabapentin 300 mg PO DAILY 08/31/21 08/31/21 08/27/21 21:00 History 300 Pantoprazole [Protonix TAB] 40 mg PO BID 08/31/21 08/31/21 08/29/21 08:00 History 40 mg Active Medications: Generic Name Dose Route Start Last Admin Trade Name Pierreq PRN Reason Stop Dose Admin Acetaminophen 650 mg 08/29/21 20:01 09/04/21 14:31 Acetaminophen 325 Mg Tab PO 650 mg Q4H PRN Administration Pain MILD(1-3)/Fever >100.5/GRADY Aspirin 81 mg 09/03/21 13:00 09/06/21 10:28 Aspirin Ec 81 Mg Tab PO 81 mg QDAY ESTEBAN Administration Atorvastatin Calcium 40 mg 09/03/21 22:00 09/06/21 21:05 Atorvastatin 40 Mg Tab PO 40 mg QHS ESTEBAN Administration Clonidine HCl 0.2 mg 09/05/21 22:00 09/05/21 22:05 Clonidine Tts 0.2 Mg/24 Hr Patch TD 0.2 mg We ESTEBAN Administration Enoxaparin Sodium 40 mg 09/01/21 10:00 09/06/21 10:28 Enoxaparin 40 Mg/0.4 Ml Inj SUB-Q 40 mg DAILY ESTEBAN Administration Protocol Famotidine 20 mg 08/29/21 22:00 09/06/21 21:05 Famotidine 20 Mg/2 Ml Inj IV 20 mg BID ESTEBAN Administration Hydralazine HCl 10 mg 09/03/21 09:12 09/06/21 05:07 Hydralazine 20 Mg/1 Ml Inj IV 10 mg Q4HR PRN Administration SBP>160 or DBP>110 Hydromorphone HCl 0.5 mg 08/29/21 20:01 09/06/21 08:39 Hydromorphone 1 Mg/1 Ml Inj IV 0.5 mg Q3H PRN Administration Pain , Severe (7-10) Sodium Chloride 1,000 mls @ 75 mls/hr 09/05/21 23:45 09/06/21 21:02 Nacl 0.9% 1000 Ml IV 100 mls/hr DIRECT ESTEBAN Administration Insulin Glargine 15 units 08/30/21 22:00 09/06/21 21:04 Insulin Glargine 100 Units/Ml SUB-Q 15 units QHS ESTEBAN Administration Insulin Human Lispro 0 unit 09/01/21 08:30 09/07/21 08:35 Insulin Lispro 100 Unit/Ml SUB-Q Not Given ACHS [facility] Protocol Ketorolac Tromethamine 30 mg 09/06/21 14:00 09/07/21 05:36 Ketorolac 30 Mg/1 Ml Inj IV 09/11/21 13:59 30 mg Q8H ESTEBAN Administration Lisinopril 10 mg 08/30/21 14:00 09/06/21 10:27 Lisinopril 5 Mg Tab PO 10 mg DAILY ESTEBAN Administration Metoclopramide HCl 10 mg 08/29/21 20:01 Metoclopramide 10 Mg/2 Ml Inj IV Q6H PRN Nausea And Vomiting Metoprolol Tartrate 25 mg 09/03/21 13:00 09/07/21 05:38 Metoprolol Tartrate 25 Mg Tab PO 25 mg Q8H ESTEBAN Administration Ondansetron HCl 4 mg 08/29/21 20:01 Ondansetron 4 Mg/2 Ml Inj IV Q8H PRN Nausea And Vomiting Ondansetron HCl 4 mg 09/05/21 17:26 Ondansetron 4 Mg/2 Ml Inj IV ONCE PRN Nausea And Vomiting Oxycodone/Acetaminophen 2 tab 09/06/21 09:12 09/07/21 05:40 Oxycodone /Acetaminophen 5-325mg Tab PO 2 tab Q6H PRN Administration Pain, Moderate (4-6) Sodium Chloride 10 ml 08/29/21 22:00 09/06/21 21:04 Sodium Chloride 0.9% 10 Ml Flush Syringe IV 10 ml BID ESTEBAN Administration Sodium Chloride 10 ml 08/29/21 20:01 Sodium Chloride 0.9% 10 Ml Flush Syringe IV PRN PRN LINE FLUSH
[2021-09-07] MEDS: ENOXAPARIN 40 MG/0.4 ML INJ SUB-Q SCH (09:54)
[2021-09-07] MEDS: ASPIRIN EC 81 MG TAB PO SCH (09:54)
[2021-09-07] MEDS: LISINOPRIL 5 MG TAB PO SCH (09:54)
[2021-09-07] MEDS: FAMOTIDINE 20 MG/2 ML INJ IV SCH ×2 (09:55→22:49)
--- NOTE | 2021-09-07 09:59 | Progress Note ---
Assessment and Plan Assessment and plan: A 52-year-old with hypertension and type 2 diabetes who presented with complaints of abdominal pain and nausea. No diarrhea, or constipation. The patient was admitted with diagnosis of acute abdominal pain. CT scan completed on 08/29 revealed findings concerning for adenocarcinoma of the ascending colon. Colonoscopy revealed ulcerated, partially obstructing, large, circumfrential mass in the ascending colon measuring 6 cm. Acute abdominal pain Probable primary adenocarcinoma of ascending colon. Hypertension Diabetes mellitus type 2 DVT prophylaxis 09/01/21 Patient with colonic mass. For surgery on Friday. 09/02/21 Patient with colonic mass in ascending colon. Possible adenocarcinoma o f colon. For surgery tomorrow. 09/03/21 Patient presented with abdominal pain, found to have ascending colon mass on colonoscopy. For surgery today. Hypertension, uncontrolled. Give Hydralazine iv prn in addition to scheduled Metoprolol, Lisinopril Diabetes mellitus 09/04/2021. Patient for preoperative evaluation with stress test today. Follow-up CEA. Continue pain control. Surgery to perform right hemicolectomy later this week. 09/05/2021. Patient with stress test yesterday that revealed small area of ischemia but cardiology recommended medical therapy. Cardiology cleared for surgery but patient is considered moderate risk. Patient is to undergo right colectomy today. Continue supportive care 09/06/2021. Patient is s/p laparoscopic right hemicolectomy yesterday. Await pathology. Patient with clear liquid diet this morning and will advance as tolerated per surgery. Await return of bowel function and discharge per surgery recommendations. 09/07/2021. The patient has tolerated clear liquid diet and will advance to full liquid diet this morning per surgery. 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 Await colectomy pathology results. Continue appropriate pain control with Percocet, Toradol and Dilaudid. Ambulate/OOB. Anticipate discharge in a.m. History Interval history: No new issues overnight. Hospitalist Physical - Constitutional Vitals: Temp Pulse Resp BP Pulse Ox 100.0 F H 104 H 22 155/78 96 09/06/21 17:23 09/07/21 05:38 09/06/21 17:23 09/07/21 05:38 09/06/21 22:44 General appearance: Present: no acute distress, obese - EENT Eyes: Present: PERRL, EOM intact ENT: hearing intact, clear oral mucosa, dentition normal - Neck Neck: Present: supple, normal ROM - Respiratory Respiratory effort: normal Respiratory: bilateral: CTA - Cardiovascular Rhythm: regular Heart Sounds: Present: S1 & S2. Absent: gallop, rub - Extremities Extremities: no ischemia, No edema, Full ROM - Abdominal General gastrointestinal: soft, non-tender, non-distended, normal bowel sounds - Integumentary Integumentary: Present: clear, warm, dry - Neurologic Neurologic: CNII-XII intact, moves all extremities HEART Score - HEART Score Troponin: Troponin T < 0.010 ng/mL (0.00-0.029) 08/29/21 11:10 Results - Labs CBC & Chem 7: 09/07/21 05:00 09/06/21 05:52 Labs: Laboratory Last Values WBC 8.8 K/mm3 (4.5-11.0) 09/07/21 05:00 RBC 3.76 M/mm3 (3.65-5.03) 09/07/21 05:00 Hgb 10.0 gm/dl (10.1-14.3) L 09/07/21 05:00 Hct 30.7 % (30.3-42.9) D 09/07/21 05:00 MCV 82 fl (79-97) 09/07/21 05:00 MCH 27 pg (28-32) L 09/07/21 05:00 MCHC 33 % (30-34) 09/07/21 05:00 RDW 17.4 % (13.2-15.2) H 09/07/21 05:00 Plt Count 268 K/mm3 (140-440) 09/07/21 05:00 Lymph % (Auto) 15.4 % (13.4-35.0) 09/07/21 05:00 [place] % (Auto) 9.8 % (0.0-7.3) H 09/07/21 05:00 Eos % (Auto) 0.2 % (0.0-4.3) 09/07/21 05:00 Baso % (Auto) 0.4 % (0.0-1.8) 09/07/21 05:00 Lymph # (Auto) 1.4 K/mm3 (1.2-5.4) 09/07/21 05:00 [place] # (Auto) 0.9 K/mm3 (0.0-0.8) H 09/07/21 05:00 Eos # (Auto) 0.0 K/mm3 (0.0-0.4) 09/07/21 05:00 Baso # (Auto) 0.0 K/mm3 (0.0-0.1) 09/07/21 05:00 Seg Neutrophils % 74.2 % (40.0-70.0) H 09/07/21 05:00 Seg Neutrophils # 6.6 K/mm3 (1.8-7.7) 09/07/21 05:00 PT 14.0 Sec. (12.2-14.9) 09/06/21 05:52 INR 0.97 (0.87-1.13) 09/06/21 05:52 APTT 29.7 Sec. (24.2-36.6) 09/06/21 05:52 Fibrinogen 540 mg/dl (211-480) H 09/06/21 05:52 VBG pH 7.344 (7.320-7.420) 08/29/21 11:10 Sodium 138 mmol/L (137-145) 09/06/21 05:52 Potassium 4.1 mmol/L (3.6-5.0) 09/06/21 05:52 Chloride 99.7 mmol/L (98-107) 09/06/21 05:52 Carbon Dioxide 21 mmol/L (22-30) L 09/06/21 05:52 Anion Gap 21 mmol/L 09/06/21 05:52 BUN 6 mg/dL (7-17) L 09/06/21 05:52 Creatinine 1.0 mg/dL (0.6-1.2) 09/06/21 05:52 Estimated GFR > 60 ml/min 09/06/21 05:52 BUN/Creatinine Ratio 6 % 09/06/21 05:52 Glucose 233 mg/dL (65-100) H 09/06/21 05:52 POC Glucose 142 mg/dL (70-105) H 09/07/21 07:10 Hemoglobin A1c 11.9 % (4-6) H 08/30/21 04:46 Ketones Quantitative Negative (Negative) 08/29/21 11:10 Calcium 9.8 mg/dL (8.4-10.2) 09/06/21 05:52 Iron 27 ug/dL (37-170) L 09/02/21 04:49 TIBC 282 mcg/dL (250-450) 09/02/21 04:49 Total Bilirubin 0.20 mg/dL (0.1-1.2) 08/30/21 04:46 Direct Bilirubin < 0.2 mg/dL (0-0.2) 08/29/21 09:28 Indirect Bilirubin 0.0 mg/dL 08/29/21 09:28 AST 34 units/L (5-40) 08/30/21 04:46 ALT 26 units/L (7-56) 08/30/21 04:46 Alkaline Phosphatase 91 units/L (35-129) 08/30/21 04:46 Troponin T < 0.010 ng/mL (0.00-0.029) 08/29/21 11:10 Total Protein 6.5 g/dL (6.3-8.2) 08/30/21 04:46 Albumin 3.9 g/dL (3.9-5) 08/30/21 04:46 Albumin/Globulin Ratio 1.5 % 08/30/21 04:46 Lipase 50 units/L (13-60) 08/29/21 09:28 Carcinoembryonic Ag 11.3 ng/mL (0.0-2.4) H 08/31/21 07:30 Urine Color Yellow (Yellow) 08/29/21 09:49 Urine Turbidity Clear (Clear) 08/29/21 09:49 Urine pH 5.0 (5.0-7.0) 08/29/21 09:49 Ur Specific [place] 1.017 (1.003-1.030) 08/29/21 09:49 Urine Protein <15 mg/dl mg/dL (Negative) 08/29/21 09:49 Urine Glucose (UA) >=500 mg/dL (Negative) 08/29/21 09:49 Urine Ketones Neg mg/dL (Negative) 08/29/21 09:49 Urine Blood Neg (Negative) 08/29/21 09:49 Urine Nitrite Neg (Negative) 08/29/21 09:49 Urine Bilirubin Neg (Negative) 08/29/21 09:49 Urine Urobilinogen < 2.0 mg/dL (<2.0) 08/29/21 09:49 Ur Leukocyte Esterase Neg (Negative) 08/29/21 09:49 Urine WBC (Auto) 3.0 /HPF (0.0-6.0) 08/29/21 09:49 Urine RBC (Auto) 1.0 /HPF (0.0-6.0) 08/29/21 09:49 U Epithel Cells (Auto) 2.0 /HPF (0-13.0) 08/29/21 09:49 Urine Bacteria (Auto) 1+ /HPF (Negative) 08/29/21 09:49 Urine Mucus Few /HPF 08/29/21 09:49 Coronavirus (PCR) Negative (Negative) 09/01/21 09:09 Blood Type O POSITIVE 09/03/21 09:33 Antibody Screen Negative 09/03/21 09:33 Wray/IV: Voiding Method Toilet Active Medications - Current Medications Current Medications: Generic Name Dose Route Start Last Admin Trade Name Freq PRN Reason Stop Dose Admin Acetaminophen 650 mg 08/29/21 20:01 09/04/21 14:31 Acetaminophen 325 Mg Tab PO 650 mg Q4H PRN Administration Pain MILD(1-3)/Fever >100.5/GRADY Aspirin 81 mg 09/03/21 13:00 09/06/21 10:28 Aspirin Ec 81 Mg Tab PO 81 mg QDAY ESTEBAN Administration Atorvastatin Calcium 40 mg 09/03/21 22:00 09/06/21 21:05 Atorvastatin 40 Mg Tab PO 40 mg QHS ESTEBAN Administration Clonidine HCl 0.2 mg 09/05/21 22:00 09/05/21 22:05 Clonidine Tts 0.2 Mg/24 Hr Patch TD 0.2 mg We ESTEBAN Administration Enoxaparin Sodium 40 mg 09/01/21 10:00 09/06/21 10:28 Enoxaparin 40 Mg/0.4 Ml Inj SUB-Q 40 mg DAILY ESTEBAN Administration Protocol Famotidine 20 mg 08/29/21 22:00 09/06/21 21:05 Famotidine 20 Mg/2 Ml Inj IV 20 mg BID ESTEBAN Administration Hydralazine HCl 10 mg 09/03/21 09:12 09/06/21 05:07 Hydralazine 20 Mg/1 Ml Inj IV 10 mg Q4HR PRN Administration SBP>160 or DBP>110 Hydromorphone HCl 0.5 mg 08/29/21 20:01 09/06/21 08:39 Hydromorphone 1 Mg/1 Ml Inj IV 0.5 mg Q3H PRN Administration Pain , Severe (7-10) Sodium Chloride 1,000 mls @ 75 mls/hr 09/05/21 23:45 09/06/21 21:02 Nacl 0.9% 1000 Ml IV 100 mls/hr DIRECT ESTEBAN Administration Insulin Glargine 15 units 08/30/21 22:00 09/06/21 21:04 Insulin Glargine 100 Units/Ml SUB-Q 15 units QHS ESTEBAN Administration Insulin Human Lispro 0 unit 09/01/21 08:30 09/07/21 08:35 Insulin Lispro 100 Unit/Ml SUB-Q Not Given ACHS [facility] Protocol Ketorolac Tromethamine 30 mg 09/06/21 14:00 09/07/21 05:36 Ketorolac 30 Mg/1 Ml Inj IV 09/11/21 13:59 30 mg Q8H ESTEBAN Administration Lisinopril 10 mg 08/30/21 14:00 09/06/21 10:27 Lisinopril 5 Mg Tab PO 10 mg DAILY ESTEBAN Administration Metoclopramide HCl 10 mg 08/29/21 20:01 Metoclopramide 10 Mg/2 Ml Inj IV Q6H PRN Nausea And Vomiting Metoprolol Tartrate 25 mg 09/03/21 13:00 09/07/21 05:38 Metoprolol Tartrate 25 Mg Tab PO 25 mg Q8H ESTEBAN Administration Ondansetron HCl 4 mg 08/29/21 20:01 Ondansetron 4 Mg/2 Ml Inj IV Q8H PRN Nausea And Vomiting Ondansetron HCl 4 mg 09/05/21 17:26 Ondansetron 4 Mg/2 Ml Inj IV ONCE PRN Nausea And Vomiting Oxycodone/Acetaminophen 2 tab 09/06/21 09:12 09/07/21 05:40 Oxycodone /Acetaminophen 5-325mg Tab PO 2 tab Q6H PRN Administration Pain, Moderate (4-6) Sodium Chloride 10 ml 08/29/21 22:00 09/06/21 21:04 Sodium Chloride 0.9% 10 Ml Flush Syringe IV 10 ml BID ESTEBAN Administration Sodium Chloride 10 ml 08/29/21 20:01 Sodium Chloride 0.9% 10 Ml Flush Syringe IV PRN PRN LINE FLUSH Nutrition/Malnutrition Assess - Dietary Evaluation Nutrition/Malnutrition Findings: Nutrition Notes Start: 09/05/21 12:46 Freq: Status: Active Protocol: Document 09/05/21 12:46 MEENA (Rec: 09/05/21 12:54 [email or web address] [id number]) Nutrition Notes Need for Assessment generated from: LOS Initial or Follow up Assessment Current Diagnosis Coronary Artery Disease, Diabetes,Hypertension Other Pertinent Diagnosis Adenocarcinoma of colon Current Diet NPO Labs/Tests BG 172 Pertinent Medications Reviewed Height 5 ft 5.5 in Weight 95.3 kg [place] Body Weight (kg) 57.95 BMI 34.4 Weight Status Obese Subjective/Other Information Pt screened for LOS. She is in surgery at this time; scheduled for (R) hemicolectomy. Burn Absent Trauma Absent #1 Nutrition Diagnosis Inadequate protein-energy intake Etiology colon CA, abdominal pain [employer] ( which was exacerbated by PO intake) As Evidenced by Signs and Symptoms pt been either NPO or on cl liq diet since admission Is patient on ventilator? No Is Patient Ambulatory and/or Out of Bed Yes REE-([facility]-ambulatory/OOB) [ 2030.353 [id number]] Kcal/Kg value to use for calculation 16 Approximate Energy Requirements Using 1525 kcal/Kg Calculation Used for Recommendations Kcal/kg Additional Notes Pro needs 1-1.2g/kg adjBW: 77- 92g/day Fluid needs 1ml/kcal Nutrition Intervention Change Diet Order: Advance diet as tolerated ( Cardiac/Consistent CHO GI soft ) Goal #1 Diet advancement to meet nutrient needs Anticipated Discharge Needs: None identified at this time Follow-Up By: 09/07/21 Additional Comments F/U: diet advancement, PO tolerance, wt assessment
--- NOTE | 2021-09-07 13:13 | Progress Note ---
Assessment and Plan - Patient Problems (1) Pre-op evaluation Current Visit: Yes Status: Acute Plan to address problem: Postoperative hemicolectomy. History of coronary artery disease and prior remote coronary stenting. Normal exercise thallium stress test done before surgery. Cardiac status stable through recovery so far, follow-up twelve-lead EKG was performed this morning morning was benign. Subjective Date of service: 09/07/21 Interval history: Patient looks and feels better, her postoperative abdominal pain is improved. No cardiac complaints. Ayan EKG done today was a sinus rhythm with no ST or T wave changes. Objective Vital Signs Temp Pulse Resp BP Pulse Ox 09/07/21 11:47 99.1 F 98 H 18 164/88 94 09/07/21 05:38 104 H 155/78 09/07/21 04:59 99.8 F H 107 H 18 155/86 92 09/06/21 22:44 96 09/06/21 22:34 99.2 F 96 H 18 142/64 92 09/06/21 21:05 106 H 155/87 09/06/21 17:23 100.0 F H 106 H 22 155/87 93 - Physical Examination General: No Apparent Distress HEENT: Positive: PERRL Neck: Positive: neck supple Cardiac: Positive: Reg Rate and Rhythm Lungs: Positive: clear to auscultation Neuro: Positive: Grossly Intact Abdomen: Positive: Tender (Postoperative) Skin: Positive: Clear Extremities: Absent: edema - Labs and Meds CBC 09/07/21 Range/Units 05:00 WBC 8.8 (4.5-11.0) K/mm3 RBC 3.76 (3.65-5.03) M/mm3 Hgb 10.0 L (10.1-14.3) gm/dl Hct 30.7 D (30.3-42.9) % Plt Count 268 (140-440) K/mm3 Lymph # (Auto) 1.4 (1.2-5.4) K/mm3 [place] # (Auto) 0.9 H (0.0-0.8) K/mm3 Eos # (Auto) 0.0 (0.0-0.4) K/mm3 Baso # (Auto) 0.0 (0.0-0.1) K/mm3
--- NOTE | 2021-09-07 13:41 | Progress Note ---
Assessment and Plan 56-year-old female postop day #2 status post laparoscopic-assisted right hemicolectomy for colon cancer. Afebrile and stable. Awaiting for full return of bowel function. If patient passes flatus today and continues to follow clear liquids can likely discharge home tomorrow. Subjective Date of service: 09/07/21 Narrative: No acute events overnight. Patient tolerating clear liquids without difficulty. Patient denies flatus at this time. Pain is controlled and patient is walking around her room. Overall patient says she feels well and says that she is almost ready to go home. Objective Vital Signs - 12hr 09/07/21 09/07/21 09/07/21 04:59 05:38 11:47 Temperature 99.8 F H 99.1 F Pulse Rate 107 H 104 H 98 H Respiratory 18 18 Rate Blood Pressure 155/86 155/78 164/88 O2 Sat by Pulse 92 94 Oximetry 09/07/21 13:35 Temperature Pulse Rate Respiratory 20 Rate Blood Pressure O2 Sat by Pulse Oximetry - General physical appearance well developed, well nourished, no distress, no pain, obese - Respiratory normal expansion, normal respiratory effort - Abdomen soft, distended, other (Incisions clean dry and intact, appropriately tender to palpation) - Labs 09/07/21 05:00 09/06/21 05:52
[2021-09-07] MEDS: HYDROmorphone 1 MG/1 ML INJ IV PRN ×2 (18:13→21:01)
[2021-09-07] MEDS: ACETAMINOPHEN 325 MG TAB PO PRN (18:15)
[2021-09-07] MEDS: SODIUM CHLORIDE 0.9% 1000 ML 1,000 ML IV SCH (21:05)
[2021-09-07] MEDS: INSULIN GLARGINE 100 UNITS/ML SUB-Q SCH (22:48)
[2021-09-08] MEDS: HYDROmorphone 1 MG/1 ML INJ IV PRN ×2 (01:32→08:11)
[2021-09-08 05:08] VITALS: BP 154/83
[2021-09-08] MEDS: METOPROLOL TARTRATE 25 MG TAB PO SCH (05:50)
[2021-09-08] MEDS: KETOROLAC 30 MG/1 ML INJ IV SCH (05:51)
[2021-09-08 06:43] LABS: Basophils % (Auto) 0.6 % (0.0-1.8); Eosinophils # (Auto) 0.1 K/mm3 (0.0-0.4); Hematocrit 28.5 % (30.3-42.9); Hemoglobin 9.1 gm/dl (10.1-14.3); Lymphocytes # (Auto) 1.8 K/mm3 (1.2-5.4); Lymphocytes % (Auto) 22.3 % (13.4-35.0); Mean Corpuscular HGB Conc 32 % (30-34); Mean Corpuscular Volume 81 fl (79-97); Monocytes # (Auto) 0.8 K/mm3 (0.0-0.8); Monocytes % (Auto) 10.6 % (0.0-7.3); Platelet Count 263 K/mm3 (140-440); Red Cell Distribution Width 17.5 % (13.2-15.2)
[2021-09-08 07:09] LABS: BUN/Creatinine Ratio 7; Blood Urea Nitrogen 5 mg/dL (7-17); Calcium 9.2 mg/dL (8.4-10.2); Hemolysis Index 5
[2021-09-08] MEDS: INSULIN LISPRO 100 UNIT/ML SUB-Q SCH (07:30)
--- NOTE | 2021-09-08 07:31 | Discharge Summary ---
Providers - Providers Date of Admission: 08/29/21 20:01 Date of discharge: 09/08/21 Attending physician: ROSA ABREU 08/29/21 20:01 Consult to Physician [CONS] Routine Comment: Consulting Provider: IRIS VELAZQUEZ Physician Instructions: Reason For Exam: Mass-ascending colon 08/30/21 06:34 Consult to Physician [CONS] Routine Comment: Consulting Provider: ARETHA THOMASON Physician Instructions: Reason For Exam: Mass--ascending colon with partial obstruction 08/31/21 16:52 Consult to Physician [CONS] Routine Comment: Consulting Provider: MAXIMILIANO ZIMMERMAN Physician Instructions: Reason For Exam: Colon mass suspicious for cancer. Primary care physician: [employer] Hospitalization Reason for admission: abd pain Condition: Stable Hospital course: 52-year-old -Cypriot female with past medical history of diabetes mellitus type 2 and hypertension who presented through the emergency department with complaints of nausea and abdominal pain. Patient reportedly had increased discomfort over the past few weeks prior to admission. The patient was admitted with diagnosis of acute abdominal pain, diabetes mellitus type [address] scan completed on 08/29 revealed findings concerning for adenocarcinoma of the ascending colon. Colonoscopy revealed ulcerated, partial ly obstructing, large, circumfrential mass in the ascending colon measuring 6 cm. Hospital course: 09/01/21 Patient with colonic mass. For surgery on Friday. 09/02/21 Patient with colonic mass in ascending colon. Possible adenocarcinoma of colon. For surgery tomorrow. 09/03/21 Patient presented with abdominal pain, found to have ascending colon mass on colonoscopy. For surgery today. Hypertension, uncontrolled. Give Hydralazine iv prn in addition to scheduled Metoprolol, Lisinopril Diabetes mellitus 09/04/2021. Patient for preoperative evaluation with stress test today. Follow-up [facility]. Continue pain control. Surgery to perform right hemicolectomy later this week. 09/05/2021. Patient with stress test yesterday that revealed small area of ischemia but cardiology recommended medical therapy. Cardiology cleared for surgery but patient is considered moderate risk. Patient is to undergo right colectomy today. Continue supportive care 09/06/2021. Patient is s/p laparoscopic right hemicolectomy yesterday. Await pathology. Patient with clear liquid diet this morning and will advance as tolerated per surgery. Await return of bowel function and discharge per surgery recommendations. 09/07/2021. The patient has tolerated clear liquid diet and will advance to full liquid diet this morning per surgery. 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 Await colectomy pathology results. Continue appropriate pain control with Percocet, Toradol and Dilaudid. Ambulate/OOB. Anticipate discharge in a.m. 09/08/2021. Patient is postop day #3 status post laparoscopic-assisted right hemicolectomy for colon cancer. Patient with flatus and return of bowel function. Therefore, surgery reports patient can discharge home and is to follow-up as an outpatient. Dedicated discharge time 35 minutes Disposition: HOME / SELF CARE / HOMELESS Final Discharge Diagnosis (Prints w/discharge instructions): New diagnosis of colon cancer, abdominal pain, diabetes mellitus type 2, hypertension, s/p laparoscopic-assisted right hemicolectomy for colon cancer Core Measure Documentation - Palliative Care Palliative Care/ Comfort Measures: Not Applicable - Core Measures Any of the following diagnoses?: none Exam - Constitutional Vitals: Temp Pulse Resp BP Pulse Ox 99.1 F 103 H 16 154/83 96 09/08/21 04:07 09/08/21 04:07 09/08/21 04:07 09/08/21 04:07 09/08/21 04:07 General appearance: Present: no acute distress, well-nourished - EENT Eyes: Present: PERRL ENT: hearing intact, clear oral mucosa - Neck Neck: Present: supple, normal ROM - Respiratory Respiratory effort: normal Respiratory: bilateral: CTA - Cardiovascular Heart Sounds: Present: S1 & S2. Absent: rub, click - Extremities Extremities: pulses symmetrical, No edema Peripheral Pulses: within normal limits - Abdominal General gastrointestinal: Present: soft, non-tender, non-distended, normal bowel sounds Female genitourinary: Present: normal - Integumentary Integumentary: Present: clear, warm, dry - Musculoskeletal Musculoskeletal: gait normal, strength equal bilaterally - Psychiatric Psychiatric: appropriate mood/affect, intact judgment & insight - Neurologic Neurologic: CNII-XII intact, moves all extremities Plan Activity: advance as tolerated Weight Bearing Status: Weight Bear as Tolerated Diet: regular Follow up with: DIOMEDES DUMONT MD [Staff Physician] - 3-5 Days AVIVA SHAH MD [Staff Physician] - 3-5 Days ARETHA THOMASON DO [Staff Physician] - 14 Days PRIMARY CARE, [Primary Care Provider] - 3-5 Days Prescriptions: oxyCODONE /ACETAMINOPHEN [Percocet 5/325 mg] 1 tab PO Q6H PRN #10 tablet PRN Reason: Pain, Moderate (4-6)
[2021-09-08] MEDS: LISINOPRIL 5 MG TAB PO SCH (10:38)
[2021-09-08] MEDS: ENOXAPARIN 40 MG/0.4 ML INJ SUB-Q SCH (10:38)
[2021-09-08] MEDS: ASPIRIN EC 81 MG TAB PO SCH (10:38)
[2021-09-08] MEDS: FAMOTIDINE 20 MG/2 ML INJ IV SCH (10:38)
--- NOTE | 2021-09-08 11:59 | Progress Note ---
Assessment and Plan 56-year-old female postop day #3 status post laparoscopic-assisted right hemicolectomy for colon cancer. Afebrile and stable. Showing signs of return of bowel function. Pt can be discharged to home and follow up with Dr. Castanon in two weeks. She can stay on full liquid and advance as tolerated. she is encouraged to perform incentive spirometer and frequent walking at home. Subjective Date of service: 09/08/21 Narrative: No acute events overnight. Pt says she has been passing flatus and feels good tolerating diet. Pain is well controlled. Objective Vital Signs - 12hr 09/08/21 04:07 Temperature 99.1 F Pulse Rate 103 H Respiratory 16 Rate Blood Pressure 154/83 O2 Sat by Pulse 96 Oximetry - General physical appearance well developed, no distress, no pain, obese - ENT no hearing loss - Respiratory normal expansion, normal respiratory effort - Abdomen soft, other (non tender, incision c/d/i) - Neurologic normal coordination, normal sensation - Psychiatric oriented to time, oriented to person, oriented to place - Labs 09/08/21 05:39 09/08/21 05:39 Diabetes panel 09/08/21 Range/Units 05:39 Sodium 139 (137-145) mmol/L Potassium 3.2 L D (3.6-5.0) mmol/L Chloride 106.4 (98-107) mmol/L Carbon Dioxide 23 (22-30) mmol/L BUN 5 L (7-17) mg/dL Creatinine 0.7 (0.6-1.2) mg/dL Glucose 153 H (65-100) mg/dL Calcium 9.2 (8.4-10.2) mg/dL Calcium panel 09/08/21 Range/Units 05:39 Calcium 9.2 (8.4-10.2) mg/dL Pituitary panel 09/08/21 Range/Units 05:39 Sodium 139 (137-145) mmol/L Potassium 3.2 L D (3.6-5.0) mmol/L Chloride 106.4 (98-107) mmol/L Carbon Dioxide 23 (22-30) mmol/L BUN 5 L (7-17) mg/dL Creatinine 0.7 (0.6-1.2) mg/dL Glucose 153 H (65-100) mg/dL Calcium 9.2 (8.4-10.2) mg/dL Adrenal panel 09/08/21 Range/Units 05:39 Sodium 139 (137-145) mmol/L Potassium 3.2 L D (3.6-5.0) mmol/L Chloride 106.4 (98-107) mmol/L Carbon Dioxide 23 (22-30) mmol/L BUN 5 L (7-17) mg/dL Creatinine 0.7 (0.6-1.2) mg/dL Glucose 153 H (65-100) mg/dL Calcium 9.2 (8.4-10.2) mg/dL
--- NOTE | 2021-09-12 14:45 | Electrocardiograph Report ---
[facility] Test Date: 2021-09-07 Test Time: 08:48:40 Pat Name: MARIA EUGENIA KING Department: Room: [facility] Gender: F Principal Developer: BRAYDEN : 1965 Requested By: STEVE CELAYA Order Number: [id number] Reading MD: Steve Celaya Measurements Intervals [place] Rate: 86 P: 21 VA: 182 QRS: 6 QRSD: 90 T: 23 QT: 374 QTc: 448 Interpretive Statements Sinus rhythm Compared to ECG 08/29/2021 08:57:15 No significant changes Electronically Signed On 09-12-2021 14:45:15 EDT by Steve Celaya
== END 2021-09-08 13:00 | disposition home or self-care (01) | DRG 331 ==
LOC: ED 08:35 → 3A 16:02 → OBSVTOIN 20:01 → 3A 08-30 → UNDODISIN 09-02 21:00
PROVIDERS: ADMIT Internal Medicine; ATTEND Hospitalist
PROC: 0DBK8ZX Excision of Ascending Colon, Via Natural or Artificial Opening Endoscopic, Diagnostic (ICD-10-PCS; principal; 2021-08-31)
PROC: 0DTF4ZZ Resection of Right Large Intestine, Percutaneous Endoscopic Approach (ICD-10-PCS; 2021-09-05)
DX: C18.2 Malignant neoplasm of ascending colon (principal); Z20.822 Contact with and (suspected) exposure to COVID-19; I10 Essential (primary) hypertension; E11.9 Type 2 diabetes mellitus without complications; E78.5 Hyperlipidemia, unspecified; K64.8 Other hemorrhoids; I25.2 Old myocardial infarction; K64.4 Residual hemorrhoidal skin tags; Z91.19 Patient's noncompliance with other medical treatment and regimen; I25.10 Atherosclerotic heart disease of native coronary artery without angina pectoris; Z79.899 Other long term (current) drug therapy; Z87.891 Personal history of nicotine dependence; Z79.84 Long term (current) use of oral hypoglycemic drugs; Z86.79 Personal history of other diseases of the circulatory system; Z80.41 Family history of malignant neoplasm of ovary; Z83.3 Family history of diabetes mellitus; Z82.49 Family history of ischemic heart disease and other diseases of the circulatory system
CPT/HCPCS: 36415; 71046; 74177; 78452; 80048; 80053; 80076; 81001; 82010; 82378; 82805; 82962; 83036; 83550; 83690; 84484; 85025; 85027; 85384; 85610; 85730; 86850; 86900; 86901; 88305; 88309; 88341; 88342; 93005; 93017; 93306; G0378; A9502; J0360; J0690; J1170; J1650; J1815; J1885; J2405; J2704; J2710; J7030; J7120; Q9967; U0003

== ENCOUNTER 2021-12-30 12:04 | Emergency (ER) | payer SELFPAY ==
[2021-12-30] MEDS ORDERED: METOCLOPRAMIDE 10 MG/2 ML INJ IV ONE (12:38)
[2021-12-30] MEDS ORDERED: diphenhydrAMINE 50 MG/ML VIAL IV ONE (12:38)
[2021-12-30] MEDS ORDERED: LACTATED RINGERS 2,000 ML IV ONE (12:38)
[2021-12-30] MEDS ORDERED: LIDOCAINE (4%) 40 MG/ML TOPICAL SOLN 50 ML BOTTLE TP ONE (12:38)
[2021-12-30] MEDS ORDERED: ACETAMINOPHEN 325 MG TAB PO ONE (12:38)
--- NOTE | 2021-12-30 12:38 | Emergency Department Report ---
ED General Adult HPI - General Chief complaint: Hyperglycemia Stated complaint: LEG PAIN/HEADACHES/HIGH BLOOD SUGAR PUI?: No Time Seen by Provider: 12/30/21 12:28 Source: patient, RN notes reviewed, old records reviewed Mode of arrival: Ambulatory Limitations: No Limitations - History of Present Illness Initial comments: The patient was evaluated in the emergency department for symptoms described in the history of present illness. He/she was evaluated in the context of the global COVID-19 pandemic, which necessitated consideration that the patient might be at risk for infection with the virus that causes COVID-19. Instit utional protocols and algorithms that pertain to the evaluation of patients at risk for COVID-19 are in a state of rapid change based on information released by regulatory bodies including the CDC and federal and state organizations. These policies and algorithms were followed during the patient's care in the emergency department. Please note that these policies, procedures and recommendations changed on a rapid basis. During the history and physical examination I am chaperoned by nurse Jose Antonio Espitia Past medical history: Type 2 diabetes, hemoglobin A1c 11.6 2020, body mass index 32.4, hypertension, high cholesterol. Currently taking Metformin and glipizide. Not able to afford insulin secondary to financial and insurance issues. The patient is a 56-year-old female. The patient presents to the ER today with multiple complaints. Her first complaint is chronic neuropathic burning pain in her bilateral lower extremities. This is similar to prior episodes of neuropathic pain. Her second complaint is headache. The headache is frontal and bitemporal. The headache is similar to prior migraine headaches. The headache is not sudden or thunderclap in nature. The headache is not described as maximal in intensity. The headache is not described as the worst headache of her life. Her next complaint is hyperglycemia and frequent urination. Review of systems is positive for cough, malaise, fatigue, increased thirst, nausea with no vomiting, no chest pain, no diarrhea, no focal extremity weakness or numbness. The patient reports that she is COVID-19 vaccinated but has not received her booster. -: Gradual Location: head, left, right, lower extremity Severity scale (0 -10): 5 Quality: burning, aching Consistency: intermittent Improves with: rest Worsens with: movement - Related Data Home Medications Medication Instructions Recorded Confirmed Last Taken Pantoprazole [Protonix TAB] 40 mg PO BID 1008/31/21 08/29/21 08:00 40 mg Previous Rx's Medication Instructions Recorded Last Taken Type Metoprolol [Lopressor TAB] 25 mg PO Q8H tablet 09/08/21 Unknown Rx Gabapentin 300 mg PO DAILY #30 cap 12/30/21 Unknown Rx Lisinopril [Zestril] 10 mg PO DAILY #30 tab 12/30/21 Unknown Rx Metoprolol [Lopressor TAB] 25 mg PO DAILY #30 tab 12/30/21 Unknown Rx glipiZIDE [Glucotrol] 10 mg PO QDAY #30 tab 12/30/21 Unknown Rx metFORMIN [Glucophage] 1,000 mg PO QDAY #60 tab 12/30/21 Unknown Rx Allergies Allergy/AdvReac Type Severity Reaction Status Date / Time No Known Allergies Allergy Verified 12/30/21 12:37 ED Review of Systems ROS: Stated complaint: LEG PAIN/HEADACHES/HIGH BLOOD SUGAR Other details as noted in HPI Constitutional: malaise. denies: fever Eyes: denies: eye discharge ENT: denies: congestion Respiratory: cough Cardiovascular: denies: chest pain Gastrointestinal: nausea. denies: abdominal pain, vomiting, diarrhea Genitourinary: frequency Musculoskeletal: myalgia Neurological: as per HPI, headache, weakness Hematological/Lymphatic: denies: easy bleeding ED Past Medical Hx - Past Medical History Previous Medical History?: Yes Hx Hypertension: Yes (meds this AM) Hx CVA: No Hx Heart Attack/AMI: Yes (2017; EKG:NSR 08-29-2021) Hx Congestive Heart Failure: No Hx Diabetes: Yes Hx Deep Vein Thrombosis: No Hx Pulmonary Embolism: No Hx GERD: No Hx Liver Disease: No Hx Renal Disease: No Hx of Cancer: Yes (colon sx) Hx Sickle Cell Disease: No Hx Arthritis: No Hx Headaches / Migraines: No Hx Seizures: No Hx Kidney Stones: No Hx Psychiatric Treatment: No Hx Asthma: No Hx COPD: No Hx Tuberculosis: No Hx Dementia: No Hx HIV: No Additional medical history: stent, hld. sx to remove colon ca - Surgical History Past Surgical History?: Yes Hx Appendectomy: Yes Additional Surgical History: stent. Family hx ovarian cancer - Social History Smoking Status: Unknown if ever smoked - Medications Home Medications: Home Medications Medication Instructions Recorded Confirmed Last Taken Type Pantoprazole [Protonix TAB] 40 mg PO BID 08/31/21 08/31/21 08/29/21 08:00 History 40 mg Metoprolol [Lopressor TAB] 25 mg PO Q8H tablet 09/08/21 Unknown Rx Gabapentin 300 mg PO DAILY #30 cap 12/30/21 Unknown Rx Lisinopril [Zestril] 10 mg PO DAILY #30 tab 12/30/21 Unknown Rx Metoprolol [Lopressor TAB] 25 mg PO DAILY #30 tab 12/30/21 Unknown Rx glipiZIDE [Glucotrol] 10 mg PO QDAY #30 tab 12/30/21 Unknown Rx metFORMIN [Glucophage] 1,000 mg PO QDAY #60 tab 12/30/21 Unknown Rx ED Physical Exam - General Limitations: No Limitations General appearance: alert, in no apparent distress, obese - Head Head exam: Present: atraumatic, normocephalic - Eye Eye exam: Present: normal appearance, PERRL, EOMI. Absent: nystagmus - ENT ENT exam: Present: normal exam, normal orophraynx, mucous membranes moist, normal external ear exam - Neck Neck exam: Present: normal inspection, full ROM. Absent: tenderness, meningismus - Respiratory Respiratory exam: Present: normal lung sounds bilaterally. Absent: respiratory distress, wheezes, rales, rhonchi, stridor, decreased breath sounds - Cardiovascular Cardiovascular Exam: Present: regular rate, normal rhythm, normal heart sounds. Absent: bradycardia, tachycardia, irregular rhythm, systolic murmur, diastolic murmur, rubs, gallop - GI/Abdominal GI/Abdominal exam: Present: soft. Absent: distended, tenderness, guarding, rebound, rigid, pulsatile mass - Extremities Exam Extremities exam: Present: normal inspection, full ROM, other (2+ pulses noted in the bilateral upper and lower extremities. There is no palpable cord. negative Homans sign. Muscular compartments are soft. The pelvis is stable.). Absent: pedal edema, calf tenderness - Back Exam Back exam: Present: normal inspection, full ROM. Absent: tenderness, CVA tenderness (R), CVA tenderness (L), muscle spasm, paraspinal tenderness, vertebral tenderness - Neurological Exam Neurological exam: Present: alert, oriented X3, normal gait, reflexes normal, other (No facial droop. Tongue midline. Extraocular movements intact bilaterally. Facial sensation intact to light touch in V1, V2, V3 distribution bilaterally. 5 and a 5 strength in 4 extremities. Sensation intact to light touch in 4 extremities.). Absent: motor sensory deficit - Psychiatric Psychiatric exam: Present: normal affect, normal mood - Skin Skin exam: Present: warm, dry, intact, normal color. Absent: rash ED Course Vital Signs 12/30/21 12/30/21 12/30/21 12:05 12:37 13:00 Temperature 98.4 F Pulse Rate 73 74 Respiratory 18 Rate Blood Pressure 150/101 141/90 [Right] O2 Sat by Pulse 98 99 98 Oximetry O2 Sat by Pulse Oximetry [ Digit-Finger] 12/30/21 12/30/21 12/30/21 13:52 14:15 15:15 Temperature Pulse Rate 78 88 Respiratory Rate Blood Pressure 140/85 153/99 [Right] O2 Sat by Pulse 99 97 Oximetry O2 Sat by Pulse 99 Oximetry [ Digit-Finger] 12/30/21 12/30/21 12/30/21 16:20 17:14 18:17 Temperature Pulse Rate 68 64 61 Respiratory Rate Blood Pressure 129/76 146/89 140/95 [Right] O2 Sat by Pulse 100 100 99 Oximetry O2 Sat by Pulse Oximetry [ Digit-Finger] - Reevaluation(s) Reevaluation #1: 12/30/21 13:12 Differential diagnosis, include but not limited to: Diabetic ketoacidosis, hyperosmolar state, hyperglycemia, pneumonia, bronchitis, urinary tract infection, dehydration, electrolyte derangement, migraine headache, tension headache, cluster headache neuropathic pain Assessment and plan: 56-year-old female with multiple complaints. These are likely acute on chronic. In terms of the patient's lower extremity pain and headache, these are acute exacerbations of chronic pathology. She has a GCS of 15, with an NIH score of 0, no meningeal signs, no red flag historical features, there is no leg swelling, or asymmetry, no DVT/PE risk factors, low risk by Wells criteria. Supportive care at this time, Tylenol, Reglan, intranasal lidocaine, and gabapentin. In terms of the patient's complaint of hyperglycemia, obtain appropriate laboratory studies, urinalysis, and start IV fluids. Counseled patient that in spite of not being able to afford insulin therapy, she may pursue alternative methods of controlling her type 2 diabetes, including diet lifestyle modification, exercise and aggressive weight loss. Patient also counseled that she may pursue insurance on the [email or web address] website. Reassess after completion of laboratory studies, and initial therapeutic interventions. 12/30/21 19:01 Patient observed in this department for hours. Initial laboratory studies demonstrated hyperglycemia, with venous pH of 7.2. She was given aggressive fluids, and insulin therapy, and repeat basic metabolic panel showed marked improvement in metabolic acidosis, closure of anion gap, and improvement in hyperglycemia. Patient is reevaluated multiple times, and endorses marked improvement in symptoms. I have personally reevaluated this patient in her room multiple times, and she is suitable for discharge at this point in time. Reiterated discharge precautions. - Pulse Oximetry Interpretation Digit-Finger Initial Pulse Oximetry Readin O2 Sat by Pulse Oximetry: 99 Actions Taken: none ED Medical Decision Making - Lab Data Result diagrams: 12/30/21 12:49 12/30/21 18:24 Vital Signs 12/30/21 12/30/21 12:05 12:37 Temperature 98.4 F Pulse Rate 73 Respiratory 18 Rate Blood Pressure 150/101 [Right] O2 Sat by Pulse 98 99 Oximetry Vital Signs 12/30/21 12/30/21 12/30/21 12:05 12:37 13:00 Temperature 98.4 F Pulse Rate 73 74 Respiratory 18 Rate Blood Pressure 150/101 141/90 [Right] O2 Sat by Pulse 98 99 98 Oximetry O2 Sat by Pulse Oximetry [ Digit-Finger] 12/30/21 12/30/21 12/30/21 13:52 14:15 15:15 Temperature Pulse Rate 78 88 Respiratory Rate Blood Pressure 140/85 153/99 [Right] O2 Sat by Pulse 99 97 Oximetry O2 Sat by Pulse 99 Oximetry [ Digit-Finger] 12/30/21 12/30/21 12/30/21 16:20 17:14 18:17 Temperature Pulse Rate 68 64 61 Respiratory Rate Blood Pressure 129/76 146/89 140/95 [Right] O2 Sat by Pulse 100 100 99 Oximetry O2 Sat by Pulse Oximetry [ Digit-Finger] Lab Results 12/30/21 12/30/21 12/30/21 Range/Units 12:17 12:49 12:49 WBC 3.9 L (4.5-11.0) K/mm3 RBC 5.27 H (3.65-5.03) M/mm3 Hgb 13.1 (10.1-14.3) gm/dl Hct 42.8 (30.3-42.9) % MCV 81 (79-97) fl MCH 25 L (28-32) pg MCHC 31 (30-34) % RDW 19.6 H (13.2-15.2) % Plt Count 196 (140-440) K/mm3 VBG pH (7.320-7.420) Sodium 136 L (137-145) mmol/L Potassium 5.4 H (3.6-5.0) mmol/L Chloride 102.2 (98-107) mmol/L Carbon Dioxide 20 L (22-30) mmol/L Anion Gap 19 mmol/L BUN 15 (7-17) mg/dL Creatinine 0.9 (0.6-1.2) mg/dL Estimated GFR > 60 ml/min BUN/Creatinine Ratio 17 % Glucose 459 H (65-100) mg/dL POC Glucose 456 H (70-105) mg/dL Calcium 10.5 H (8.4-10.2) mg/dL Magnesium 1.80 (1.7-2.3) mg/dL Total Bilirubin 0.30 (0.1-1.2) mg/dL AST 31 (5-40) units/L ALT 23 (7-56) units/L Alkaline Phosphatase 107 (35-129) units/L Total Creatine Kinase 95 (30-135) units/L Troponin T < 0.010 (0.00-0.029) ng/mL Total Protein 7.4 (6.3-8.2) g/dL Albumin 4.3 (3.9-5) g/dL Albumin/Globulin Ratio 1.4 % Urine Color (Yellow) Urine Turbidity (Clear) Urine pH (5.0-7.0) Ur Specific [place] (1.003-1.030) Urine Protein (Negative) mg/dL Urine Glucose (UA) (Negative) mg/dL Urine Ketones (Negative) mg/dL Urine Blood (Negative) Urine Nitrite (Negative) Urine Bilirubin (Negative) Urine Urobilinogen (<2.0) mg/dL Ur Leukocyte Esterase (Negative) Urine WBC (Auto) (0.0-6.0) /HPF Urine RBC (Auto) (0.0-6.0) /HPF U Epithel Cells (Auto) (0-13.0) /HPF Urine Bacteria (Auto) (Negative) /HPF Urine Yeast (Budding) /HPF 12/30/21 12/30/21 12/30/21 Range/Units 12:49 17:33 18:24 WBC (4.5-11.0) K/mm3 RBC (3.65-5.03) M/mm3 Hgb (10.1-14.3) gm/dl Hct (30.3-42.9) % MCV (79-97) fl MCH (28-32) pg MCHC (30-34) % RDW (13.2-15.2) % Plt Count (140-440) K/mm3 VBG pH 7.275 L (7.320-7.420) Sodium 137 (137-145) mmol/L Potassium 4.6 (3.6-5.0) mmol/L Chloride 105.6 (98-107) mmol/L Carbon Dioxide 21 L (22-30) mmol/L Anion Gap 15 mmol/L BUN 11 (7-17) mg/dL Creatinine 0.8 (0.6-1.2) mg/dL Estimated GFR > 60 ml/min BUN/Creatinine Ratio 14 % Glucose 266 H (65-100) mg/dL POC Glucose 249 H (70-105) mg/dL Calcium 9.8 (8.4-10.2) mg/dL Magnesium (1.7-2.3) mg/dL Total Bilirubin (0.1-1.2) mg/dL AST (5-40) units/L ALT (7-56) units/L Alkaline Phosphatase (35-129) units/L Total Creatine Kinase (30-135) units/L Troponin T (0.00-0.029) ng/mL Total Protein (6.3-8.2) g/dL Albumin (3.9-5) g/dL Albumin/Globulin Ratio % Urine Color (Yellow) Urine Turbidity (Clear) Urine pH (5.0-7.0) Ur Specific [place] (1.003-1.030) Urine Protein (Negative) mg/dL Urine Glucose (UA) (Negative) mg/dL Urine Ketones (Negative) mg/dL Urine Blood (Negative) Urine Nitrite (Negative) Urine Bilirubin (Negative) Urine Urobilinogen (<2.0) mg/dL Ur Leukocyte Esterase (Negative) Urine WBC (Auto) (0.0-6.0) /HPF Urine RBC (Auto) (0.0-6.0) /HPF U Epithel Cells (Auto) (0-13.0) /HPF Urine Bacteria (Auto) (Negative) /HPF Urine Yeast (Budding) /HPF 12/30/21 Range/Units Unknown WBC (4.5-11.0) K/mm3 RBC (3.65-5.03) M/mm3 Hgb (10.1-14.3) gm/dl Hct (30.3-42.9) % MCV (79-97) fl MCH (28-32) pg MCHC (30-34) % RDW (13.2-15.2) % Plt Count (140-440) K/mm3 VBG pH (7.320-7.420) Sodium (137-145) mmol/L Potassium (3.6-5.0) mmol/L Chloride (98-107) mmol/L Carbon Dioxide (22-30) mmol/L Anion Gap mmol/L BUN (7-17) mg/dL Creatinine (0.6-1.2) mg/dL Estimated GFR ml/min BUN/Creatinine Ratio % Glucose (65-100) mg/dL POC Glucose (70-105) mg/dL Calcium (8.4-10.2) mg/dL Magnesium (1.7-2.3) mg/dL Total Bilirubin (0.1-1.2) mg/dL AST (5-40) units/L ALT (7-56) units/L Alkaline Phosphatase (35-129) units/L Total Creatine Kinase (30-135) units/L Troponin T (0.00-0.029) ng/mL Total Protein (6.3-8.2) g/dL Albumin (3.9-5) g/dL Albumin/Globulin Ratio % Urine Color Yellow (Yellow) Urine Turbidity Clear (Clear) Urine pH 5.0 (5.0-7.0) Ur Specific [place] 1.023 (1.003-1.030) Urine Protein <15 mg/dl (Negative) mg/dL Urine Glucose (UA) >=500 (Negative) mg/dL Urine Ketones Neg (Negative) mg/dL Urine Blood Neg (Negative) Urine Nitrite Neg (Negative) Urine Bilirubin Neg (Negative) Urine Urobilinogen < 2.0 (<2.0) mg/dL Ur Leukocyte Esterase Neg (Negative) Urine WBC (Auto) 2.0 (0.0-6.0) /HPF Urine RBC (Auto) 1.0 (0.0-6.0) /HPF U Epithel Cells (Auto) < 1.0 (0-13.0) /HPF Urine Bacteria (Auto) 1+ (Negative) /HPF Urine Yeast (Budding) Few /HPF - EKG Data -: EKG Interpreted by Me EKG shows normal: sinus rhythm Rate: normal - EKG Data Interpretation: unchanged when compared t (August 2021) 12/30/21 13:10 The EKG is interpreted 12: 58 Sinus rhythm, rate 68 bpm. Left axis deviation, left anterior fascicular block, normal P wave axis. Intervals otherwise within normal limits. This is not a STEMI. - Radiology Data Radiology results: pending, report reviewed, image reviewed interpreted by me: 1 view x-ray of the chest is interpreted by myself. Clear lungs, no infiltrate, no pneumothorax, normal bony anatomy, unremarkable cardiomediastinal silhouette. CHEST 1 VIEW 12/30/2021 12:40 PM INDICATION / CLINICAL INFORMATION: cough weakness. COMPARISON: 08/29/21 FINDINGS: SUPPORT DEVICES: None. HEART / MEDIASTINUM: No significant abnormality. LUNGS / PLEURA: No significant pulmonary or pleural abnormality. No pneumothorax. ADDITIONAL FINDINGS: No significant additional findings. IMPRESSION: 1. No acute findings. No change. Signer Name: Safia Coats MD Signed: 12/30/2021 12:09 PM Workstation Name: [id number] Critical care attestation.: If time is entered above; I have spent that time in minutes in the direct care of this critically ill patient, excluding procedure time. ED Disposition Clinical Impression: Hyperglycemia, Cough, Headache, BMI greater than 30, Neuropathic pain of both legs Disposition: 01 HOME / SELF CARE / HOMELESS Is pt being admited?: No Does the pt Need Aspirin: No Condition: Good Additional Instructions: Please continue current outpatient medications. Recommend that patient exercise as tolerated, aggressively lose weight, and avoid consumption of simple carbohydrates, starch, sugar, and processed foods. Drink at least 4 to 6 cups of water per day indefinitely, and consume food such as lean protein, green vegetables, and minimal carbohydrates. Patient may reference the [place] [employer] website for specific instructions on how to construct a diabetic appropriate diet. Patient may take [id number] Tylenol as needed for physical pain, and take the prescribed Reglan medication as needed for headache and nausea. Patient will need to follow-up with an outpatient primary care doctor for chronic medical issues within the next 2 weeks. Patient may also use the [employer] Rx/affordable prescription application, downloadable on a smart phone, and also available on a card which will be provided to the patient to assist with acquisition of affordable prescriptions. In addition, the patient may purchase insulin [id number] without a prescription at [facility]. In addition, the patient may obtain affordable healthcare insurance on the [email or web address] website. Please return to the emergency room right away with new pain, worsened pain, migration of pain, projectile vomiting, change in mental status, confusion, inability tolerate liquid feeds, new, worsened or different symptoms not present on the initial emergency room evaluation Prescriptions: Gabapentin 300 mg PO DAILY #30 cap metFORMIN [Glucophage] 1,000 mg PO QDAY #60 tab glipiZIDE [Glucotrol] 10 mg PO QDAY #30 tab Metoprolol [Lopressor TAB] 25 mg PO DAILY #30 tab Lisinopril [Zestril] 10 mg PO DAILY #30 tab Referrals: [facility] [Provider Group] - 3-5 Days [facility] [Outside] - 3-5 Days
--- NOTE | 2021-12-30 13:13 | XRay Report ---
CHEST 1 VIEW 12/30/2021 12:40 PM INDICATION / CLINICAL INFORMATION: cough weakness. COMPARISON: 08/29/21 FINDINGS: SUPPORT DEVICES: None. HEART / MEDIASTINUM: No significant abnormality. LUNGS / PLEURA: No significant pulmonary or pleural abnormality. No pneumothorax. ADDITIONAL FINDINGS: No significant additional findings. IMPRESSION: 1. No acute findings. No change. Signer Name: Safia Coats MD Signed: 12/30/2021 1:09 PM Workstation Name: [id number]
[2021-12-30] MEDS ORDERED: GABAPENTIN 300 MG CAP PO ONE (13:14)
[2021-12-30 13:39] LABS: Mean Corpuscular HGB Conc 31 % (30-34); Mean Corpuscular Volume 81 fl (79-97); Platelet Count 196 K/mm3 (140-440); Red Blood Count 5.27 M/mm3 (3.65-5.03); Red Cell Distribution Width 19.6 % (13.2-15.2)
[2021-12-30 13:40] LABS: Hematocrit 42.8 % (30.3-42.9); Hemoglobin 13.1 gm/dl (10.1-14.3)
[2021-12-30 14:38] LABS: Alanine Aminotransferase 23 units/L (7-56); Albumin 4.3 g/dL (3.9-5); BUN/Creatinine Ratio 17; Blood Urea Nitrogen 15 mg/dL (7-17); Calcium 10.5 mg/dL (8.4-10.2); Hemolysis Index 41
--- NOTE | 2021-12-30 14:42 | Electrocardiograph Report ---
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
[2021-12-30] MEDS ORDERED: INSULIN REGULAR, HUMAN 100 UNITS/1 ML IV ONE (14:50)
[2021-12-30] MEDS ORDERED: LACTATED RINGERS 1,000 ML IV ONE (14:51)
[2021-12-30 15:45] LABS: Bacteria,Urine 1+ /HPF (Negative); Bilirubin,Urine NEG (Negative); Blood,Urine NEG (Negative); Color,Urine Yellow (Yellow); Protein,Urine <15 mg/dL mg/dL (Negative); Urobilinogen,Urine < 2.0 mg/dL (<2.0)
[2021-12-30] MEDS ORDERED: SODIUM CHLORIDE 0.9% 1000 ML 1,000 ML IV ONE (17:19)
[2021-12-30 18:18] VITALS: BP 140/95
[2021-12-30 18:53] LABS: BUN/Creatinine Ratio 14; Blood Urea Nitrogen 11 mg/dL (7-17); Calcium 9.8 mg/dL (8.4-10.2); Hemolysis Index 20
== END 2021-12-30 20:38 | disposition home or self-care (01) ==
LOC: ED 12:04
DX: R51.9 Headache, unspecified (principal); R05.9 Cough, unspecified; M79.661 Pain in right lower leg; E11.65 Type 2 diabetes mellitus with hyperglycemia; I10 Essential (primary) hypertension; M79.2 Neuralgia and neuritis, unspecified
CPT/HCPCS: 36415; 71045; 80048; 80053; 81001; 82550; 82805; 82962; 83735; 84484; 85027; 93005; 93010; 96361; 96374; 96375; 99284; J1200; J2765; J7030; J7120; Q0162; Q9967; J1815